=== PATIENT | female | born 1930 | race Caucasian/White ===

== ENCOUNTER 2018-11-27 14:34 | Observation (INO) | payer MEDICARE, OTHER ==
[~2018-11-27] VITALS: Ht 167.6 cm; Wt 80.3 kg
[2018-11-27] MEDS ORDERED: NITROGLYCERIN/D5W 200 MCG/ML 250 ML IV STA (14:54)
--- NOTE | 2018-11-27 15:16 | NUR ---
RADIOLOGY AT BEDSIDE FOR CXR AT THIS TIME.
[2018-11-27] MEDS ORDERED: ASPIRIN 81 MG CHEW TAB PO ONE ×2 (15:30→16:45)
--- NOTE | 2018-11-27 15:32 | Diagnostic Imaging Report ---
Examination: Single AP view of the chest. COMPARISON: None. INDICATION: Chest pain DISCUSSION: Lungs are well-inflated and without focal airspace consolidation, pleural effusion, or pneumothorax. Probable calcified granuloma peripheral right midlung. Normal heart size for technique. Coronary artery stents. Probable mitral annular calcifications. Atherosclerotic calcification of the thoracic aorta. No overt pulmonary edema. Mild prominence of the pulmonary interstitium. No acute osseous abnormality. Surgical anchors in the right humeral head. Subchondral cystic change left humeral head. IMPRESSION: No acute cardiopulmonary abnormalities. Mild interstitial prominence likely reflects age-related fibrotic change. Signed by: Dr. Bronson Ramirez M.D. on 11/27/2018 3:29 PM
[2018-11-27 16:52] LABS: BASOPHILS % 0.3 % (0.0-1.0); EOSINOPHILS # (AUTO) 0.1 (0.0-0.4); HEMATOCRIT 35.4 % (34.2-44.1); HEMOGLOBIN 12.3 g/dL (12.0-16.0); LYMPHOCYTES # (AUTO) 1.7 (1.0-3.2); LYMPHOCYTES % 22.2 % (18.0-39.1); MEAN CORPUSCULAR HEMOGLOBIN 29.9 pg (28-32); MEAN CORPUSCULAR HGB CONC 34.7 g/dL (31-35); MEAN CORPUSCULAR VOLUME 85.9 fL (81-99); MONOCYTES # (AUTO) 0.4 (0.2-0.8); MONOCYTES % 5.4 % (4.4-11.3); NEUTROPHILS # (AUTO) 5.5 (2.1-6.9); NEUTROPHILS % 70.8 % (38.7-80.0); PLATELET COUNT 238 x10e3/uL (140-360); RED BLOOD COUNT 4.12 x10e6/uL (3.6-5.1); RED CELL DISTRIBUTION WIDTH 13.5 % (11.7-14.4)
[2018-11-27 17:12] LABS: ALANINE AMINOTRANSFERASE 43 IU/L (0-55); ALBUMIN 3.5 g/dL (3.5-5.0); ALBUMIN/GLOBULIN RATIO 1.1 (0.8-2.0); ALKALINE PHOSPHATASE 121 IU/L (40-150); ANION GAP 15.9 mmol/L (8-16); BLOOD UREA NITROGEN 15 mg/dL (7-26); BUN/CREATININE RATIO 15 (6-25); CALCIUM 9.9 mg/dL (8.4-10.2); CARBON DIOXIDE 23 mmol/L (22-29); CHLORIDE 105 mmol/L (98-107); CREATINE KINASE 16 IU/L (29-168); CREATININE, SERUM 1.02 mg/dL (0.57-1.11); EST GLOMERULAR FILTRATION RATE 51 ML/MIN (60-); GLUCOSE 184 mg/dL (74-118); POTASSIUM 3.9 mmol/L (3.5-5.1); SODIUM 140 mmol/L (136-145)
--- OUTSIDE RECORDS SUMMARY | 2018-11-27 17:29 | XMS REPORT | Clinical Summary ---
Author Author NASRA [facility] [employer] [facility] [facility] Address Unknown Phone Unavailable Care Team Providers Care Red Hat Engineer Name Role Phone PCP Unavailable Allergies Not on File Medications End Date Status Medication Sig Dispensed Refills Start Date Active NIFEdipine (PROCARDIA-XL) Take 1 tablet 90 tablet 0 10/24/201 30 MG (OSM) 24 hr tablet (30 mg total) 9 by mouth daily. Active losartan (COZAAR) 50 MG Take 1 tablet 90 tablet 0 10/24/201 tablet (50 mg total) 9 by mouth daily. Active pantoprazole (PROTONIX) Take 1 tablet 90 tablet 0 201 40 MG tablet (40 mg total) 9 by mouth daily. Active oxybutynin (DITROPAN) 5 Take 5 mg by 0 MG tablet mouth 2 (two) times daily. Active furosemide (LASIX) 20 MG Take 20 mg by 0 tablet mouth daily. Active levothyroxine (SYNTHROID, Take 137 mcg 0 LEVOTHROID) 137 MCG by mouth tablet Every morning on an empty stomach. Active sotalol AF (BETAPACE AF) Take 120 mg 0 120 MG tablet by mouth 2 (two) times daily. Active apixaban (ELIQUIS) 5 mg Take 5 mg by 0 Tab tablet mouth 2 (two) times daily. 10/24/2018 Discontinued NIFEdipine (PROCARDIA-XL) Take 30 mg by 0 30 MG (OSM) 24 hr tablet mouth daily. 10/24/2018 Discontinued losartan (COZAAR) 50 MG Take 50 mg by 0 tablet mouth daily. 10/24/2018 Discontinued pantoprazole (PROTONIX) Take 40 mg by 0 40 MG tablet mouth daily. Active Problems Not on file Encounters Care Team Description Date Type Specialty Mary Jo Borges MD 10/23/2018 Refill Geriatric Medicine Bina Qureshi LPN 10/23/2018 Orders Only Geriatric Medicine after 11/26/2017 Social History Date Tobacco Use Types Packs/Day Years Used Never Assessed Sex Assigned at Date Recorded Not on file Industry Job Start Date Occupation Not on file Not on file Not on file Travel End Travel History Travel Start No recent travel history available. Last Filed Vital Signs Not on file Plan of Treatment Care Team Description Date Type Specialty Mary Jo Borges MD [facility] [place] [address] [phone] 12/16/2018 Office Visit Geriatric Medicine Results Not on fileafter 11/26/2017 Insurance Payer Benefit Subscriber ID Type Phone Address Plan / Group MEDICARE MEDICARE A xxxxxxxxxxx Medicare B MCR SUPPLEMENT/INDIVIDUAL GENERIC xxxxxxxxxx [employer] MEDICARE SUPPLEMENT
--- OUTSIDE RECORDS SUMMARY | 2018-11-27 17:29 | XMS REPORT ---
Author Author [facility] Address Unknown Phone Unavailable Care Team Providers Care Shingle Carrier Name Role Phone Lisette RODARTE Unavailable Unavailable Problems This patient has no known problems. Allergies, Adverse Reactions, Alerts This patient has no known allergies or adverse reactions. Medications This patient has no known medications. Results Test Description Test Time Test Comments Text Results Atomic Results Result Comments CHEST SINGLE (PORTABLE) 2018-11-27 15:27:00 [place] [address] Patient Name: BRISEIDA LEON MR #: [id number] : 1930 Age/Sex: 88/F Req #: [id number] Adm Physician: Ordered by: WALKER RODARTE MD Report #: [id number] Location: ER Room/Bed: Procedure: [id number] DX/CHEST SINGLE (PORTABLE) Exam Date: 11/27/18 Exam Time: 1508 REPORT STATUS: Signed Examination: Single AP view of the chest. ALEIDA RISON: None. INDICATION: Chest pain DISCUSSION: Lungs are well-inflated and without focal airspace consolidation, pleural effusion, or pneumothorax. Probable calcified granuloma peripheral right midlung. Normal heart size for technique. Coronary artery stents. Probable mitral annular calcifications. Atherosclerotic calcification of the thoracic aorta. No overt pulmonary edema. Mild prominence of the pulmonary interstitium. No acute osseous abnormality. Surgical anchors in the right humeral head. Subchondral cystic change left humeral head. IMPRESSION: No acute cardiopulmonary abnormalities. Mild interstitial prominence likely reflects age-related fibrotic change. Signed by: Dr. Karine Awad M.D. on 11/27/2018 3:29 PM Dictated By: KARINE AWAD MD 1529 Transcribed By: OSVALDO on 11/27/18 1529 COPY TO: WALKER RODARTE MD
[2018-11-27 17:56] VITALS: BP 191/80
[2018-11-27 18:09] VITALS: BP 191/88
[2018-11-27] MEDS ORDERED: OXYBUTYNIN CHLOR5 M1 PO (18:36)
[2018-11-27] MEDS ORDERED: LASIX20 MG PO (18:36)
[2018-11-27] MEDS ORDERED: NIFEDIPINE ER30 M1 PO (18:36)
[2018-11-27] MEDS ORDERED: LOSARTAN POTASS25 MG PO (18:36)
[2018-11-27] MEDS ORDERED: APIXABAN 5 MG PO (18:36)
[2018-11-27] MEDS ORDERED: ASPIRIN EC81 MG PO (18:36)
[2018-11-27] MEDS ORDERED: SOTALOL80 MG PO (18:36)
[2018-11-27] MEDS ORDERED: LEVOTHYROXINE112 MCG PO (18:36)
[2018-11-27] MEDS ORDERED: PANTOPRAZOLE SO40 MG PO (18:36)
--- NOTE | 2018-11-27 19:00 | NUR ---
received report from day nurse. patient is resting comfortably in bed. denies pain or discomfort. bed is in lowest position and call allen is within reach. will continue to monitor patient's care.
[2018-11-27 19:49] VITALS: BP 138/75
[2018-11-27 19:58] VITALS: BP 138/75
--- NOTE | 2018-11-27 21:00 | NUR ---
patient has had one episode of emesis. MD notified. Received new order for Zofran 4mg IV q 4 hours as needed for nausea and vomiting. Will continue to monitor patient.
[2018-11-27] MEDS ORDERED: ONDANSETRON HCL INJ 2MG/ML 2ML 2 MG/ML VIAL IV PRN (22:00)
[2018-11-27 23:49] VITALS: BP 156/67
[2018-11-28 04:31] VITALS: BP 189/76
[2018-11-28 04:38] LABS: CHOL/HDL RATIO 3.2 (3.0-3.6)
[2018-11-28 04:52] LABS: CREATINE KINASE MB 0.4 ng/mL (0-5.0)
--- NOTE | 2018-11-28 06:45 | NUR ---
report given to day nurse. patient is resting comfortably in bed. bed is in lowest position and call allen is within reach.
[2018-11-28 07:19] VITALS: BP 164/69
[2018-11-28 08:55] VITALS: BP 164/69
[2018-11-28] MEDS ORDERED: LOSARTAN POTASSIUM 25 MG TAB PO SCH (09:00)
[2018-11-28] MEDS ORDERED: LEVOTHYROXINE SODIUM 112 MCG TAB PO SCH (09:00)
[2018-11-28] MEDS ORDERED: NIFEDIPINE CR 30 MG TAB PO SCH (09:00)
[2018-11-28] MEDS ORDERED: SOTALOL HCL 80 MG TAB PO SCH (09:00)
[2018-11-28] MEDS ORDERED: PANTOPRAZOLE SOD 40 MG TABEC PO SCH (09:00)
[2018-11-28] MEDS ORDERED: OXYBUTYNIN CHLORIDE XL 5 MG TAB PO SCH (09:00)
[2018-11-28] MEDS ORDERED: FUROSEMIDE 20 MG TAB PO SCH (09:00)
[2018-11-28] MEDS ORDERED: APIXABAN 5 MG TABLET PO SCH (09:00)
[2018-11-28] MEDS ORDERED: ASPIRIN 81 MG ENTERIC COATED PO SCH (09:00)
[2018-11-28 11:07] VITALS: BP 137/63
[2018-11-28 12:28] LABS: CREATINE KINASE 22 IU/L (29-168)
--- NOTE | 2018-11-28 18:45 | Consultation ---
DATE OF CONSULTATION: Cardiology Consultation REASON FOR CONSULTATION: Chest pain. HISTORY OF PRESENT ILLNESS: This is an 88-year-old woman with a history of myocardial infarction, coronary artery disease status post percutaneous coronary intervention last stent being in 2014, paroxysmal atrial fibrillation, mild aortic stenosis, hypertension, hyperlipidemia, and gastroesophageal reflux disease, who presented to the emergency department with epigastric discomfort. She states that yesterday around noon, she developed upper epigastric discomfort with radiation to her chest after eating, mild intensity, pressure and burning like, no other exacerbating or relieving factors. The patient denies any shortness of breath, nausea, vomiting, or diaphoresis. She also states that this feels different than her prior chest pain, which she had when she had her previous myocardial infarction. REVIEW OF SYSTEMS: A 12-point review of system was conducted, is negative otherwise as stated above in the HPI. PAST MEDICAL HISTORY: As stated above in the HPI. PAST SURGICAL HISTORY: Percutaneous coronary intervention and lobectomy. PAST FAMILY HISTORY: No premature coronary artery disease or sudden cardiac . ALLERGIES: PENICILLIN AND SULFA. SOCIAL HISTORY: No illicit drug, alcohol, or tobacco use. MEDICATIONS: See medication reconciliation form. PHYSICAL EXAMINATION: VITAL SIGNS: Temperature is 98.7, heart rate 62, respirations are 20, blood pressure is 137/63, and oxygen saturation 95% on room air. GENERAL: Well appearing, well built, in no apparent distress. Alert and oriented x3. HEAD: Normocephalic, atraumatic. EYES: Extraocular muscles are intact. Conjunctivae clear. NECK: No JVD. No bruits. CARDIOVASCULAR: Regular rate and rhythm with episodes of irregular ectopy. LUNGS: Clear to auscultation. ABDOMEN: Soft, nontender, and nondistended. EXTREMITIES: No clubbing, cyanosis, or edema. Vascular 2+ pulses. SKIN: Warm, dry, and intact. NEUROLOGIC: No focal deficits noted. LABORATORY DATA: All laboratory data reviewed. Troponin negative x3. Normal creatinine. LDL is 100. A 12-lead electrocardiogram showed normal sinus rhythm. Chest x-ray shows no acute cardiopulmonary abnormalities. TELEMETRY: Monitoring revealed normal sinus rhythm. IMPRESSION: 1. Epigastric pain. 2. Precordial pain. 3. Coronary artery disease, status post percutaneous coronary intervention. 4. Paroxysmal atrial fibrillation. 5. Hyperlipidemia. 6. Gastroesophageal reflux disease. RECOMMENDATIONS: This patient is ruled out for acute myocardial infarction with three sets of negative cardiac enzymes and a 12-lead electrocardiogram showed no active ischemia. 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 Continue current cardiovascular medications including aspirin and Eliquis. Continue sotalol for rhythm control. Continue losartan and nifedipine for blood pressure control. Mild diuresis with Lasix. The patient maybe discharged from a cardiovascular standpoint with outpatient stress testing. DO SHAMAR Cuevas/MODL /[id number]
== END 2018-11-28 12:30 | disposition home or self-care (01) ==
LOC: ER 14:34 → ERHOLD 16:38 → IMCU 17:48
PROVIDERS: ADMIT Internal Medicine; ATTEND Internal Medicine
DX: R07.2 Precordial pain (principal); I25.10 Atherosclerotic heart disease of native coronary artery without angina pectoris; I25.2 Old myocardial infarction; E11.22 Type 2 diabetes mellitus with diabetic chronic kidney disease; I13.10 Hypertensive heart and chronic kidney disease without heart failure, with stage 1 through stage 4 chronic kidney disease, or unspecified chronic kidney disease; N18.3 Chronic kidney disease, stage 3 (moderate); K21.9 Gastro-esophageal reflux disease without esophagitis; Z98.61 Coronary angioplasty status; E03.9 Hypothyroidism, unspecified; I48.0 Paroxysmal atrial fibrillation; I35.0 Nonrheumatic aortic (valve) stenosis; R10.13 Epigastric pain; Z88.0 Allergy status to penicillin; Z88.2 Allergy status to sulfonamides; Z79.82 Long term (current) use of aspirin
CPT/HCPCS: 36415 ×2; 71045; 80053; 80061; 82550 ×2; 82553 ×2; 84484 ×2; 85025; 93005; 99284; G0378 ×2; J2405; S0164

== ENCOUNTER 2018-12-01 00:55 | Emergency (ER) | payer MEDICARE, OTHER ==
[~2018-12-01] VITALS: Ht 167.6 cm; Wt 80.3 kg
[~2018-12-01 00:55] MED LIST: APIXABAN 5 MG PO; ASPIRIN EC81 MG PO; LASIX20 MG PO; LEVOTHYROXINE112 MCG PO; LOSARTAN POTASS25 MG PO; NIFEDIPINE ER30 M1 PO; OXYBUTYNIN CHLOR5 M1 PO; PANTOPRAZOLE SO40 MG PO; SOTALOL80 MG PO
--- OUTSIDE RECORDS SUMMARY | 2018-12-01 00:57 | XMS REPORT | Clinical Summary ---
Author Author NASRA [facility] [employer] [facility] Address Unknown Phone Unavailable Care Team Providers Care Turkey Roll Maker Name Role Phone PCP Unavailable Allergies Not [...] LPN 10/23/2018 Orders Only Geriatric Medicine after 11/30/2017 Social History Date Tobacco Use Types Packs/Day [...] Date Type Specialty Mary Jo Borges MD [facility] [place] [address] [phone] 12/16/2018 Office Visit Geriatric Medicine Results Not on fileafter 11/30/2017 Insurance Payer Benefit Subscriber ID Type Phone Address Plan / Group MEDICARE MEDICARE A xxxxxxxxxxx Medicare B MCR SUPPLEMENT/INDIVIDUAL GENERIC xxxxxxxxxx [facility] MEDICARE SUPPLEMENT
[2018-12-01 02:00] LABS: BILIRUBIN,URINE NEGATIVE (NEGATIVE); CLARITY,URINE CLOUDY (CLEAR); COLOR,URINE YELLOW (YELLOW); KETONES,URINE NEGATIVE (NEGATIVE); LEUKOCYTE ESTERASE ,URINE NEGATIVE (NEGATIVE); NITRITE,URINE NEGATIVE (NEGATIVE); PROTEIN,URINE DIPSTICK NEGATIVE (NEGATIVE); URINE UROBILINOGEN 0.2 mg/dL (0.2 - 1)
[2018-12-01 02:17] LABS: BACTERIA,URINE FEW /HPF; EPITHELIAL CELLS,URINE FEW /LPF; RBC,URINE 0-5 /HPF (0-5); WBC,URINE (MAN) 0-5 /HPF (0-5)
--- NOTE | 2018-12-01 02:35 | Diagnostic Imaging Report ---
EXAMINATION: CHEST 2 VIEWS INDICATION: Fever ^FEVER ^[id number] ^0210 ^Y COMPARISON: Chest x-ray 11/27/2018 FINDINGS: PA and lateral views TUBES and LINES: None. LUNGS: Lungs are well inflated. There is a retrocardiac airspace opacity in the left lower lobe. 2 adjacent calcifications in the lateral right lung suggestive of granulomata. PLEURA: No pleural effusion or pneumothorax. HEART AND MEDIASTINUM: The heart is enlarged with calcifications of the mitral valve and coronary artery stents. BONES AND SOFT TISSUES: Anchors in the right humeral head are stable. There are mild degenerative changes of the left shoulder. The bones are diffusely demineralized. There is wedge-shaped compression deformity of the T12 vertebral body with approximately 45% height loss. No focal osseous lesions. There are surgical clips and chain sutures in the chest identified on lateral image. UPPER ABDOMEN: No free air under the diaphragm. IMPRESSION: 1. Retrocardiac airspace opacity suggestive of infiltrate or chronic atelectasis. 2. Cardiomegaly. No vascular congestion. 3. Compression deformity of T12 as described above. Signed by: Dr. Noelle Olea MD on 12/01/2018 2:32 AM
[2018-12-01] MEDS ORDERED: CEFTRIAXONE SOD 1 GM VIAL IM ONE (03:00)
[2018-12-01] MEDS ORDERED: LIDOCAINE HCL 1% LOCAL INJ 20 ML VIAL ONE (03:02)
== END 2018-12-01 03:50 | disposition home or self-care (01) ==
LOC: ER 00:55
DX: R50.9 Fever, unspecified (principal); J15.9 Unspecified bacterial pneumonia; I10 Essential (primary) hypertension; I48.91 Unspecified atrial fibrillation; J44.9 Chronic obstructive pulmonary disease, unspecified
CPT/HCPCS: 71046; 81001; 87086; 99283; J0696; J2001

== ENCOUNTER 2019-05-31 12:37 | Emergency (ER) | payer MEDICARE, OTHER ==
[~2019-05-31] VITALS: Ht 167.6 cm; Wt 80.3 kg
--- OUTSIDE RECORDS SUMMARY | 2019-05-31 12:40 | XMS REPORT ---
Author Author [facility] Address Unknown Phone Unavailable Care Team Providers Care Continuous Improvement Coordinator Name Role Phone CURLY RIVERA Unavailable Unavailable Whitney LARKIN Unavailable Unavailable Lisette RODARTE Unavailable Unavailable Problems This patient has no known problems. Allergies, Adverse Reactions, Alerts This patient has no known allergies or adverse reactions. Medications This patient has no known medications. Results Test Description Test Time Test Comments Text Results Atomic Results Result Comments HEMOGLOBIN A1C 2018-12-16 21:50:00 HEMOGLOBIN A1C (BEAKER) (test nhwb=263) 5.7 % 4.3-6.1 CBC W/PLT COUNT & AUTO [id number] 19:53:00* Test Item Value Reference Range Comments WHITE BLOOD CELL COUNT (BEAKER) (test sgdi=735) 6.0 K/ L 3.5-10.5 RED BLOOD CELL COUNT (BEAKER) (test qghn=690) 4.40 M/ L 3.93-5.22 HEMOGLOBIN (BEAKER) (test jpri=886) 12.9 GM/DL 11.2-15.7 HEMATOCRIT (BEAKER) (test csbm=470) 39.7 % 34.1-44.9 MEAN CORPUSCULAR VOLUME (BEAKER) (test vuoe=821) 90.2 fL 79.4-94.8 MEAN CORPUSCULAR HEMOGLOBIN (BEAKER) (test iyqn=904) 29.3 pg 25.6-32.2 MEAN CORPUSCULAR HEMOGLOBIN CONC (BEAKER) (test tirc=187) 32.5 GM/DL 32.2-35.5 RED CELL DISTRIBUTION WIDTH (BEAKER) (test uxyy=229) 13.4 % 11.7-14.4 PLATELET COUNT (BEAKER) (test jrsb=952) 301 K/CU MM 150-450 MEAN PLATELET VOLUME (BEAKER) (test lywp=080) 9.6 fL 9.4-12.3 NUCLEATED RED BLOOD CELLS (BEAKER) (test vwlc=230) 0 /100 WBC 0-0 NEUTROPHILS RELATIVE PERCENT (BEAKER) (test hpvj=865) 55 % LYMPHOCYTES RELATIVE PERCENT (BEAKER) (test qrhh=893) 37 % MONOCYTES RELATIVE PERCENT (BEAKER) (test vxyv=145) 6 % EOSINOPHILS RELATIVE PERCENT (BEAKER) (test mpul=343) 2 % BASOPHILS RELATIVE PERCENT (BEAKER) (test bzvc=862) 0 % NEUTROPHILS ABSOLUTE COUNT (BEAKER) (test wdtz=889) 3.29 K/ L 1.56-6.13 LYMPHOCYTES ABSOLUTE COUNT (BEAKER) (test ojpf=487) 2.20 K/ L 1.18-3.74 MONOCYTES ABSOLUTE COUNT (BEAKER) (test radh=674) 0.38 K/ L 0.24-0.36 EOSINOPHILS ABSOLUTE COUNT (BEAKER) (test dxxk=099) 0.12 K/ L 0.04-0.36 BASOPHILS ABSOLUTE COUNT (BEAKER) (test jbzd=928) 0.02 K/ L 0.01-0.08 IMMATURE GRANULOCYTES-RELATIVE PERCENT (BEAKER) (test mned=6186) 0 % 0-1 VITAMIN D, [id number] 19:40:00* Test Item Value Reference Range Comments VITAMIN D 25-OH (BEAKER) (test frqz=7527) 14.6 ng/mL 6.6-49.9 Effective 04/11/2017: Reference Range ChangeNew: 6.6-49.9 ng/mL Previous: 13.0 -47.8 ng/mLRecommended Vitamin D Target Range: 30.0-40.0 ng/mLVITAMIN B12 2018-12-16 19:38:00* Test Item Value Reference Range Comments VITAMIN B12 (BEAKER) (test njrj=680) 183 pg/mL 213-816 TSH/FREE T4 IF [id number] 19:38:00* Test Item Value Reference Range Comments THYROID STIMULATING HORMONE (BEAKER) (test tjyw=380) 1.65 uIU/mL 0.35-4.94 COMPREHENSIVE METABOLIC [id number] 19:16:00* Test Item Value Reference Range Comments TOTAL PROTEIN (BEAKER) (test ueve=680) 7.5 gm/dL 6.0-8.3 ALBUMIN (BEAKER) (test mwdo=3625) 3.9 g/dL 3.5-5.0 ALKALINE PHOSPHATASE (BEAKER) (test gavf=252) 102 U/L 40-150 BILIRUBIN TOTAL (BEAKER) (test rkgw=447) 0.5 mg/dL 0.2-1.2 SODIUM (BEAKER) (test itkn=026) 141 meq/L 136-145 POTASSIUM (BEAKER) (test vony=321) 4.3 meq/L 3.5-5.1 CHLORIDE (BEAKER) (test djlr=392) 106 meq/L 98-107 CO2 (BEAKER) (test vult=360) 24 meq/L 22-29 BLOOD UREA NITROGEN (BEAKER) (test kmwe=193) 15 mg/dL 7-21 CREATININE (BEAKER) (test glox=618) 0.81 mg/dL 0.57-1.25 GLUCOSE RANDOM (BEAKER) (test xnga=575) 130 mg/dL 70-105 CALCIUM (BEAKER) (test bglg=810) 10.1 mg/dL 8.4-10.2 AST (SGOT) (BEAKER) (test xykj=603) 19 U/L 5-34 ALT (SGPT) (BEAKER) (test jtbd=518) 38 U/L 6-55 EGFR (BEAKER) (test fvrn=6350) 67 mL/min/1.73 sq m ESTIMATED GFR IS NOT ACCURATE CREATININE CLEARANCE IN PREDICTING GLOMERULAR FILTRATION RATE. ESTIMATED GFR IS NOT APPLICABLE FOR DIALYSIS PATIENTS. CHEST 2 [id number] 02:27:00 [place] [address] Patient Name: BRISEIDA LEON MR #: [id number] : 1930 Age/Sex: 88/F Req #: [id number] Adm Physician: Ordered by: DEBBIE LARKIN MD Report #: [id number] Location: ER Room/Bed: Procedure: [id number] DX/ CHEST 2 VIEWS Exam Date: 12/01/18 Exam Time: 209 REPORT STATUS: Signed EXAMINATION: CHEST 2 VIEWS INDICATION: Fever FEVER [id number] Y COMPARISON: Chest x-ray 11/27/2018 FINDINGS: PA and lateral views TUBES and LINES: None. LUNGS: Lungs are well inflated. There is a r etrocardiac airspace opacity in the left lower lobe. 2 adjacent calcifications in the lateral right lung suggestive of granulomata. PLEURA: No pleural effusion or pneumothorax. HEART AND MEDIASTINUM: The heart is enlarged wi th calcifications of the mitral valve and coronary artery stents. BONES A ND SOFT TISSUES: Anchors in the right humeral head are stable. There are mild degenerative changes of the left shoulder. The bones are diffusely deminerali zed. There is wedge-shaped compression deformity of the T12 vertebral body wit h approximately 45% height loss. No focal osseous lesions. There are surgica l clips and chain sutures in the chest identified on lateral image. UPPER A BDOMEN: No free air under the diaphragm. IMPRESSION: 1. Retrocardiac a irspace opacity suggestive of infiltrate or chronic atelectasis. 2. Cardiom egaly. No vascular congestion. 3. Compression deformity of T12 as described ab ove. Signed by: Dr. Eyad Olea MD on 12/01/2018 2:32 AM Dic tated By: EYAD OLEA MD COPY TO: DEBBIE LARKIN MD CHEST SINGLE (PORTABLE)2018-11-27 15:27:00 [place] [address] Patient Name: BRISEIDA LEON MR #: [id number] : 1930 Age/Sex: 88/F Req #: [id number] Adm Physician: Ordered by: WALKER RODARTE MD Report #: [id number] Location: ER Room/Bed: Procedure: [id number] DX/ CHEST SINGLE (PORTABLE) Exam Date: 11/27/18 Exam Oleg e: 1508 REPORT STATUS: Signed Ex amination: Single AP view of the chest. COMPARISON: None. INDICATION: Chest pain DISCUSSION: Lungs are well-inflated and without focal airspace consolidation, pleural effusion, or pneumothorax. Probable calcified granuloma peripheral right midlung. Normal heart size for technique. Jahaira nary artery stents. Probable mitral annular calcifications. Atherosclerotic ca lcification of the thoracic aorta. No overt pulmonary edema. Mild prominence o f the pulmonary interstitium. No acute osseous abnormality. Surgical anchor s in the right humeral head. Subchondral cystic change left humeral head. IMPRESSION: No acute cardiopulmonary abnormalities. Mild interstitial promine nce likely reflects age-related fibrotic change. Signed by: Dr. Karine gonsales M.D. on 11/27/2018 3:29 PM Dictated By: KARINE AWAD MD Electronic ally Signed By: KARINE AWAD MD on 11/27/18 1529 Transcribed By: OSVALDO on 1529 COPY TO: WALKER RODARTE MD
[2019-05-31] MEDS ORDERED: HYDROCODONE/CHLORPHENIRAMINE 5 ML LIQCR PO PRN (13:15)
--- NOTE | 2019-05-31 13:57 | Diagnostic Imaging Report ---
EXAMINATION: CHEST 2 VIEWS INDICATION: Cough, shortness of breath ^cough ^[id number] ^1326 COMPARISON: Chest x-ray 12/01/2018 FINDINGS: PA and lateral views TUBES and LINES: None. LUNGS: Diffuse hyperinflation. There is no evidence of pneumonia or pulmonary edema. Stable calcified granuloma in the right upper lobe. PLEURA: No pleural effusion or pneumothorax. Stable biapical pleural-parenchymal thickening. HEART AND MEDIASTINUM: Stable calcifications of the mitral valve. Diffuse coronary artery calcifications. Stable mild cardiomegaly. Stable calcified lymph nodes. BONES AND SOFT TISSUES: Stable compression fracture of T12. No focal osseous lesions. Soft tissues are unremarkable. UPPER ABDOMEN: Unremarkable. IMPRESSION: Stable pulmonary hyperinflation and cardiomegaly. No acute cardiopulmonary process. Signed by: Dr. Noelle Olea MD on 05/31/2019 1:53 PM
== END 2019-05-31 14:56 | disposition home or self-care (01) ==
LOC: ER 12:37
DX: R05 Cough (principal); J20.9 Acute bronchitis, unspecified
CPT/HCPCS: 71046; 99283

== ENCOUNTER → 2019-06-02 | Outpatient (CLI) | payer MEDICARE, OTHER ==
--- NOTE | 2019-06-02 14:48 | Diagnostic Imaging Report ---
Soft tissue neck ultrasound Clinical indications: Mass right side of neck Comparison: None Technique/findings: Grayscale and color Doppler ultrasound of the patient's neck was performed. Images were obtained with a 12 MHz linear transducer. No soft tissue abnormalities are identified on the provided ultrasound images. A benign-appearing lymph node is identified in the right neck which contains normal fatty hilum. Impression: No soft tissue abnormality seen on the provided ultrasound images of the neck. If there is high clinical concern for a soft tissue abnormality which was not imaged on this examination recommend contrast enhanced CT of the neck. Signed by: King Ford MD on 06/02/2019 2:45 PM
== END ==
LOC: US 13:47
PROVIDERS: ATTEND Family Medicine
DX: R22.1 Localized swelling, mass and lump, neck (principal)
CPT/HCPCS: 76536

== ENCOUNTER 2019-11-04 18:08 | Inpatient (IN) | payer MEDICARE, OTHER ==
[~2019-11-04] VITALS: Ht 167.6 cm; Wt 80.3 kg
[2019-11-04] MEDS ORDERED: SODIUM CHLORIDE 0.9% 500ML 500 ML IV STA (18:43)
[2019-11-04] MEDS ORDERED: ACETAMINOPHEN 325 MG TAB PO STA (18:43)
[2019-11-04 19:14] LABS: BASOPHILS % 0.1 % (0.0-1.0); EOSINOPHILS % 0.3 % (0.0-6.0); HEMATOCRIT 37.5 % (34.2-44.1); HEMOGLOBIN 12.4 g/dL (12.0-16.0); LYMPHOCYTES # (AUTO) 0.9 (1.0-3.2); LYMPHOCYTES % 13.4 % (18.0-39.1); MEAN CORPUSCULAR HEMOGLOBIN 28.1 pg (28-32); MEAN CORPUSCULAR HGB CONC 33.1 g/dL (31-35); MEAN CORPUSCULAR VOLUME 84.8 fL (81-99); MONOCYTES # (AUTO) 0.6 (0.2-0.8); NEUTROPHILS # (AUTO) 5.2 (2.1-6.9); NEUTROPHILS % 76.9 % (38.7-80.0); PLATELET COUNT 232 x10e3/uL (140-360); RED BLOOD COUNT 4.42 x10e6/uL (3.6-5.1); RED CELL DISTRIBUTION WIDTH 13.5 % (11.7-14.4)
[2019-11-04] MEDS ORDERED: CEFEPIME 2 GM/NS 0.9% 100 ML 100 ML IV ONE (19:15)
[2019-11-04 19:25] LABS: INR 1.18; PROTHROMBIN TIME 15.8 seconds (11.9-14.5)
[2019-11-04 19:26] LABS: PARTIAL THROMBOPLASTIN TIME 33.3 seconds (23.8-35.5)
[2019-11-04 19:27] LABS: STREPTOCOCCUS GRP A ANTIGEN NEGATIVE (NEGATIVE)
[2019-11-04 19:32] LABS: ALANINE AMINOTRANSFERASE 214 IU/L (0-55); ALBUMIN 3.6 g/dL (3.5-5.0); ALKALINE PHOSPHATASE 174 IU/L (40-150); BLOOD UREA NITROGEN 13 mg/dL (7-26); BUN/CREATININE RATIO 16 (6-25); CALCIUM 9.5 mg/dL (8.4-10.2); CARBON DIOXIDE 24 mmol/L (22-29); CHLORIDE 102 mmol/L (98-107); CREATINE KINASE 73 IU/L (29-168); CREATININE, SERUM 0.83 mg/dL (0.57-1.11); EST GLOMERULAR FILTRATION RATE > 60 ML/MIN (60-); GLUCOSE 165 mg/dL (74-118); SODIUM 137 mmol/L (136-145)
--- NOTE | 2019-11-04 19:32 | NUR ---
ER MD AND PRIMARY RN NOTIFIED AND AWARE OF CRITICAL LAB VALUE; LACTIC ACID 2.7.
[2019-11-04 19:35] LABS: INFLUENZAE A&B ANTIGEN (RAPID) NEGATIVE (NEGATIVE)
[2019-11-04] MEDS ORDERED: SODIUM CHLORIDE 0.9% 1000ML 1,000 ML IV ONE ×2 (19:45→22:15)
[2019-11-04 19:59] LABS: AMYLASE 72 U/L (25-125); LIPASE 15 U/L (8-78)
[2019-11-04 20:01] LABS: CLARITY,URINE SL CLOUDY (CLEAR); COLOR,URINE YELLOW (YELLOW); LEUKOCYTE ESTERASE ,URINE NEGATIVE (NEGATIVE); NITRITE,URINE NEGATIVE (NEGATIVE)
[2019-11-04 20:02] LABS: BILIRUBIN,URINE NEGATIVE (NEGATIVE); KETONES,URINE NEGATIVE (NEGATIVE); PROTEIN,URINE DIPSTICK NEGATIVE (NEGATIVE); URINE UROBILINOGEN 0.2 mg/dL (0.2 - 1)
[2019-11-04 20:10] LABS: BACTERIA,URINE RARE /HPF; EPITHELIAL CELLS,URINE RARE /LPF; RBC,URINE 0-5 /HPF (0-5)
--- NOTE | 2019-11-04 20:41 | Diagnostic Imaging Report ---
EXAMINATION: CHEST SINGLE (PORTABLE) COMPARISON: Chest x-ray 05/31/2019 INDICATION: Fever, chills, elevated LFTs ^Y ^ERMD ORDER ^[id number] ^2000 ^Y DISCUSSION: Frontal view of the chest obtained at 2006 hours. HEART AND MEDIASTINUM: The heart is mildly enlarged and stable. There are calcifications throughout the aortic arch. Coronary artery calcifications identified on previous exam are not visualized on this image. LINES: None. LUNGS: Diffuse hyperinflation suggestive of small airways disease. No pneumonia or pulmonary edema. Calcified granulomata in the right upper lobe are stable. PLEURA: No pleural effusion or pneumothorax. BONES AND SOFT TISSUES: Surgical anchors in the right humeral head. The soft tissues are normal. IMPRESSION: 1. Stable mild cardiomegaly. No evidence of CHF or pulmonary edema. 2. Stable pulmonary hyperinflation. No acute pulmonary process. Signed by: Dr. Noelle Olea MD on 11/04/2019 8:37 PM
--- NOTE | 2019-11-04 21:06 | Diagnostic Imaging Report ---
CT Abdomen And Pelvis with Intravenous Contrast INDICATION: ^Y ^fever, elevated lft's ^Y TECHNIQUE: Thin collimation axial images obtained from the diaphragm to the level of the pubic symphysis following the uneventful administration of 100 cc of low osmolar, nonionic intravenous contrast. Dose reduction techniques used: Automated exposure control, adjustment of the mAs and/or kVp according to patient size, standardized low-dose protocol, and/or iterative reconstruction technique. RADIATION DOSE: Total DLP: 693.89 mGy*cm Estimated effective dose: (DLP x 0.015 x size factor) mSv CTDIvol has been reviewed. It is below the limits set by the Radiation Protocol Committee (RPC). COMPARISON: None. ABDOMEN FINDINGS: Lung Bases: Partially loculated left pleural effusion. Linear bands of chronic atelectasis/scarring in the left lung base. The heart is enlarged. Small hiatal hernia. Liver: Decreased attenuation suggestive of steatosis. No evidence for mass. Gallbladder: Absent. Biliary tree: Diffuse mild intrahepatic bile dilatation. The common hepatic duct measures 1.6 cm. The cystic duct is distended with fluid. The distal common bile duct measures 1.2 cm. There are no intraluminal filling defects. No evidence of pneumobilia. Pancreas: Normal attenuation without mass or ductal dilatation. Spleen: Normal in size. No evidence of mass. Adrenal Glands: No evidence for mass. Kidneys: Right: Multiple peripelvic cysts with a large peripelvic cyst measuring 3.7 cm. Normal enhancement the parenchyma. No hydronephrosis. Left: Normal enhancement. Calculus in the proximal lower pole measures 10 mm and is stable. There is a prominent renal pelvis without calyceal dilatation. No perinephric inflammation. Lymph Nodes: No enlarged abdominal or periaortic lymph nodes. Aorta: Mildly tortuous with scattered calcifications PELVIS FINDINGS: Bowel: Stomach: Normal. Small Bowel: Periampullary duodenal diverticulum measures approximate 4 cm. There are 2 subcentimeter hyperattenuating foci layering dependently in the diverticulum (sagittal image 58). The remainder of the small bowel is normal in diameter with normal wall thickness. Large Bowel: A right colon is not visualized. This may be due to right hemicolectomy and primary ileocolic anastomosis. Moderate burden of stool in the mid transverse colon extending to the descending colon. Multiple diverticula in the sigmoid colon without associated inflammation area Bladder: Very well-distended without mural thickening or perivesicular inflammation. The uterus is absent. No adnexal mass. Peritoneum/retroperitoneum: No free fluid or fluid collection. Lobulated peritoneal calcification in the left lower quadrant measures 15 mm. No free air. Bones: Diffusely demineralized. The patient is status post laminectomy at L3 and L4. No fusion hardware is present. There is a compression fracture of L1 of approximately 50%. No retropulsed bone fragments. Moderate degenerative changes of the lumbar spine from L2 to L5. There is a stimulator device anterior to the sacral right of midline. The battery pack is in the posterior right pelvis. Right hip prosthesis is intact and normal in position without associated fracture. IMPRESSION: 1. Status post cholecystectomy. Diffuse intrahepatic and hepatic bile duct dilatation. Periampullary duodenal diverticulum with 2 subcentimeter radiodensities layering posterior. These may be the result of passed gallstones. Concomitant cholangitis cannot be excluded in the appropriate clinical setting. If this persists, ERCP should be considered to exclude ampullary stricture or ampullary mass. 2. Mild steatosis. 3. Diverticulosis coli. No evidence for bowel obstruction or inflammation. Suspected postoperative changes of the large bowel. Small hiatal hernia. 4. Very well-distended bladder with resulting prominence of the left renal pelvis. Multiple peripelvic cysts in the right kidney. 5. L1 compression fracture of approximately 50%. The spinal canal is patent. Postoperative changes of the lumbar spine as described above. 6. Small, possibly loculated left pleural effusion. Signed by: Dr. Noelle Olea MD on 11/04/2019 9:03 PM
[2019-11-04] MEDS ORDERED: ELIQUIS5 MG PO (21:38)
[2019-11-04] MEDS ORDERED: PROTONIX40 MG PO (21:38)
[2019-11-04] MEDS ORDERED: VESICARE5 MG PO (21:38)
[2019-11-04] MEDS ORDERED: SOTALOL HCL 80 MG TAB PO ONE (22:00)
[2019-11-04] MEDS ORDERED: ONDANSETRON HCL INJ 2MG/ML 2ML 2 MG/ML VIAL IV PRN (22:15)
[2019-11-04] MEDS ORDERED: SODIUM CHLORIDE 0.9% 50ML 50 ML ONE (22:42)
[2019-11-04] MEDS ORDERED: IOPAMIDOL 370 MG/ML 200 ML INFUS..BTL INJ ONE (22:43)
--- NOTE | 2019-11-04 23:00 | NUR ---
PATIENT ARRIVED VIA WHEELCHAIR WITH BELONGINGS. PATIENT IN NO PAIN OR DISTRESS. CALL LIGHT WITHIN REACH. RECEIVED REPORT FROM HILTON PARR NURSE.
[2019-11-04] MEDS: METRONIDAZOLE 500MG/NS 100ML 100 ML IV SCH (23:17)
[2019-11-04 23:20] VITALS: BP 153/86
[2019-11-05] VITALS (8 sets, daily range): BP systolic 118–166; BP diastolic 62–87
[2019-11-05] MEDS: CEFEPIME 2 GM/NS 0.9% 100 ML 100 ML IV SCH ×3 (03:59→20:01)
[2019-11-05] MEDS: METRONIDAZOLE 500MG/NS 100ML 100 ML IV SCH ×3 (05:07→17:05)
[2019-11-05 06:28] LABS: BASOPHILS % 0.2 % (0.0-1.0); EOSINOPHILS % 0.7 % (0.0-6.0); HEMATOCRIT 36.6 % (34.2-44.1); HEMOGLOBIN 11.9 g/dL (12.0-16.0); LYMPHOCYTES # (AUTO) 1.8 (1.0-3.2); LYMPHOCYTES % 28.9 % (18.0-39.1); MEAN CORPUSCULAR HEMOGLOBIN 27.5 pg (28-32); MEAN CORPUSCULAR HGB CONC 32.5 g/dL (31-35); MEAN CORPUSCULAR VOLUME 84.5 fL (81-99); MONOCYTES # (AUTO) 0.7 (0.2-0.8); MONOCYTES % 11.1 % (4.4-11.3); NEUTROPHILS # (AUTO) 3.6 (2.1-6.9); NEUTROPHILS % 58.9 % (38.7-80.0); PLATELET COUNT 222 x10e3/uL (140-360); RED BLOOD COUNT 4.33 x10e6/uL (3.6-5.1); RED CELL DISTRIBUTION WIDTH 13.6 % (11.7-14.4)
[2019-11-05 06:54] LABS: ALANINE AMINOTRANSFERASE 176 IU/L (0-55); ALBUMIN 3.4 g/dL (3.5-5.0); ALKALINE PHOSPHATASE 148 IU/L (40-150); ANION GAP 14.4 mmol/L (8-16); BLOOD UREA NITROGEN 9 mg/dL (7-26); BUN/CREATININE RATIO 13 (6-25); CARBON DIOXIDE 23 mmol/L (22-29); CHLORIDE 107 mmol/L (98-107); CREATININE, SERUM 0.71 mg/dL (0.57-1.11); EST GLOMERULAR FILTRATION RATE > 60 ML/MIN (60-); GLUCOSE 88 mg/dL (74-118); POTASSIUM 3.4 mmol/L (3.5-5.1); SODIUM 141 mmol/L (136-145)
--- NOTE | 2019-11-05 07:21 | NUR ---
GAVE BEDSIDE SHIFT REPORT TO ONCOMING NURSE. PATIENT IN BED. CALL LIGHT WITHIN REACH.
--- NOTE | 2019-11-05 07:30 | NUR ---
PATIENT IS AWAKE, ALERT, AND IN STABLE CONDITION WITH NO S/S OF RESPIRATORY DISTRESS. NO PAIN VOICED BY PATIENT AT THIS TIME. TELEMETRY APPLIED. BEDSIDE COMMODE AVAILABLE FOR PATIENT NEAR BEDSIDE. BED ALARM APPLIED. CALL LIGHT IS WITHIN REACH, PATIENT INSTRUCTED TO CALL FOR ASSISTANCE NEEDED.
[2019-11-05] MEDS: SOTALOL HCL 80 MG TAB PO SCH ×2 (09:00→17:01)
--- NOTE | 2019-11-05 09:10 | NUR ---
ASSESSMENT: No concerns expressed Pt identifies as Holiness. Pt states she moved from [place] about 6 months ago to live with her daughter and son-in-law. Intervention: Provided unhurried pastoral presence and facilitated storytelling. Provided prayer and information on how to reach gear tooth lapping machine operator, if needed. Outcome: No need to follow at this time. DICK HOPE Social Media Analyst Spiritual Care Department O: [phone]
--- NOTE | 2019-11-05 09:38 | NUR ---
RECEIVED CALL FROM LAB AT 0845 REGARDING BLOOD CULTURES- BOTH SETS (ALL FOUR BOTTLES) HAVE GRAM NEGATIVE RODS. DR. COELHO NOTIFIED AT 0851- NO NEW ORDERS RECEIVED BY DR. COELHO.
--- NOTE | 2019-11-05 12:17 | NUR ---
DR. Armando COELHO ON THE UNIT- SPOKE WITH PATIENT'S DAUGHTER VIA PHONE. ROUNDED WITH DR. COELHO IN PATIENT'S ROOM. PLAN: PATIENT TO HAVE AN EGD TODAY.
--- NOTE | 2019-11-05 12:18 | NUR ---
SPOKE TO DR. Armando COELHO REGARDING PATIENT'S BP OF 164/68 AND IF OKAY TO ADMINISTER PO BP MEDICATION PRIOR TO EGD TODAY. DR. COELHO STATED TO HOLD FROM GIVING THE PO BLOOD PRESSURE MEDICATION.
[2019-11-05] MEDS ORDERED: FENTANYL CITRATE/PF 100MCG/2 ML INJ ONE (14:08)
[2019-11-05] MEDS ORDERED: MIDAZOLAM HCL 2 MG/2 ML VIAL ONE (14:08)
--- NOTE | 2019-11-05 14:35 | Consultation ---
DATE OF CONSULTATION: Cardiology Consultation HISTORY OF PRESENT ILLNESS: This is an 89-year-old woman with a history of paroxysmal atrial fibrillation, coronary artery disease status post percutaneous coronary intervention, mild aortic stenosis, hypertension, hyperlipidemia, gastroesophageal reflux disease, and possible chronic liver disease. The patient presented to the emergency department with fever, generalized malaise, cough, and shortness of breath. She has no chest pain. She does report occasional palpitations. She has remained compliant with her home cardiovascular medications. I evaluated this patient in my office and she has had a normal stress test and echocardiogram in recent past. REVIEW OF SYSTEMS: A 12-point review of systems was conducted and is negative except as stated above in the HPI. PAST MEDICAL HISTORY: As stated above in the HPI. PAST SURGICAL HISTORY: Percutaneous coronary intervention. PAST FAMILY HISTORY: Noncontributory to current illness. MEDICATIONS: See medication reconciliation form. ALLERGIES: PENICILLIN AND SULFA. SOCIAL HISTORY: No illicit drug, alcohol, or tobacco use. PHYSICAL EXAMINATION: VITAL SIGNS: Temperature is 98.2, heart rate 64, respirations are 20, blood pressure is 144/87, and oxygen saturation 100% on room air. GENERAL: She is well-appearing, elderly woman, in no apparent distress. Alert and oriented x3. HEAD: Normocephalic and atraumatic. EYES: The extraocular muscles are intact. Conjunctivae clear. NECK: No JVD. No bruits. CARDIOVASCULAR: She has regular rate and rhythm. No murmur heard at the right sternal border. LUNGS: Clear to auscultation bilaterally. No wheezing or rales. ABDOMEN: Soft, nontender, and nondistended. EXTREMITIES: No clubbing, cyanosis, or edema. VASCULAR: Diminished pulses. SKIN: Warm, dry, and intact. NEUROLOGIC: No focal deficits noted. Cranial nerves appear intact. PSYCHIATRIC: Normal mood and affect. LABORATORY DATA: Reviewed. Lactic acid was elevated at 2.7. Her creatinine was 0.7. Her AST and ALT were 179 and 176 respectively with a total bilirubin mildly elevated at 1.5. Telemetry monitoring revealed paroxysmal atrial fibrillation. IMPRESSION: 1. Fever. 2. Cough and shortness of breath. 3. Udlvq-dv-vtbuqzp liver disease. 4. Hypertension. 5. Hyperlipidemia. 6. Paroxysmal atrial fibrillation. RECOMMENDATIONS: This patient is stable from a cardiovascular standpoint. Her home cardiovascular medications have been resumed. If no surgeries are planned, resume Eliquis for stroke risk reduction for her paroxysmal atrial fibrillation. Zsija-dg-tcuyfww liver injury per primary and Gastroenterology teams. Antibiotics are being given for possible pneumonia. We will continue to follow along with you. DO SHAMAR Cuevas/JAMAL /[id number]
--- NOTE | 2019-11-05 14:38 | NUR ---
RECEIVED A CALL FROM DR. COELHO REGARDING THE PATIENT'S EGD RESULTS AND PLAN. DR. COELHO STATED HE SPOKE WITH THE PATIENT'S DAUGHTER/POA ABOUT THE EGD RESULTS, PLAN FOR ERCP, AND THE FACT THAT THE PATIENT IS HAVING RECURRENT CHOLANGITIS. THE PATIENT'S DAUGHTER/POA WAS ALSO INFORMED BY DR. COELHO OF THE RISKS OF THE PATIENT DEVELOPING SEPSIS. THE PATIENT'S DAUGHTER/POA, SAMANTHA OVIEDO, PLANS TO THINK OVER ALL THE INFORMATION THAT WAS PROVIDED TO HER BY DR. COELHO.
[2019-11-05] MEDS: NIFEDIPINE CR 30 MG TAB PO SCH (17:00)
[2019-11-05] MEDS: FUROSEMIDE 20 MG TAB PO SCH (17:00)
[2019-11-05] MEDS: LOSARTAN POTASSIUM 25 MG TAB PO SCH (17:00)
--- NOTE | 2019-11-05 18:12 | NUR ---
THE PATIENT AND HER DAUGHTER/POA HAVE STATED THEY WANT TO GO FORTH WITH THE ERCP PROCEDURE. PLACED CALL OUT TO DR. Armando COELHO TO INFORM HIM ON THE UPDATE- AWAITING CALLBACK.
--- NOTE | 2019-11-05 18:49 | NUR ---
PATIENT IS IN STABLE CONDITION WITH NO S/S OF RESPIRATORY DISTRESS. NO PAIN VOICED. IV FLUIDS INFUSING. TELEMETRY APPLIED. PATIENT AWARE SHE WILL BE NPO AFTER MIDNIGHT FOR POSSIBLE PROCEDURE TOMORROW. CALL PLACED OUT TO DR. Armando COELHO- NIGHT NURSE INFORMED ON POSSIBLE PROCEDURE, ERCP, FOR TOMORROW. CALL LIGHT IS WITHIN REACH, PATIENT INSTRUCTED TO CALL FOR ASSISTANCE NEEDED. BEDSIDE SHIFT REPORT GIVEN TO ONCOMING NURSE.
--- NOTE | 2019-11-05 19:01 | Operative Report ---
DATE OF PROCEDURE: 11/05/2019 SURGEON: Antonio Barry MD PROCEDURES: EGD with biopsies. INDICATIONS FOR PROCEDURE: Upper abdominal pain, nausea, vomiting, and history of dark stools. MEDICATIONS: The patient was done under MAC, please see anesthesiologist's note. PROCEDURE IN DETAIL: With the patient in the left lateral decubitus position, the flexible fiberoptic Olympus gastroscope was introduced into the esophagus under direct visualization without any difficulty. There was some patchy erythema noted in distal esophagus. A Schatzki ring was noted at the GE junction that was traversed with ease and the scope was advanced into the stomach also traversing a small hiatal hernia. Mucosa overlying the antrum and the body revealed some diffuse erythema and ekhf-km-dzcvipib edema, and biopsies were obtained and sent to stain for H. pylori. Pylorus was of normal contour and shape, was intubated with ease and the scope was advanced all the way to the second portion of the duodenum. The scope was then withdrawn slowly and the ampulla could not be well visualized with this forward viewing scope. The described diverticulum on CT scan was noted, but it could not be entered or evaluated optimally. The scope was then withdrawn back into the stomach and retroflexed, and previously described hiatal hernia was also noted in the retroflexed position. The scope was then straightened out, it was subsequently withdrawn, and the patient tolerated the procedure well. IMPRESSION: 1. Distal esophagitis, mild. 2. Schatzki's ring. 3. Small hiatal hernia. 4. Gastritis, biopsied, biopsies sent to stain for Helicobacter pylori. 5. The ampulla could not be visualized with the forward viewing scope. The patient will probably need an ERCP, as she might be having recurrent bouts of cholangitis. An MRCP could not be done, as the patient does have metal hardware in her body. PLAN: Follow up histology. Initiate Protonix 40 mg one p.o. q.a.m. before meals. Antonio Barry MD [facility] [place] /[id number] cc: DO Jamaal Landaverde MD
[2019-11-05] MEDS ORDERED: PROPOFOL IV EMULSION 10 MG/ML 20 ML VIAL ONE (19:51)
[2019-11-05] MEDS: POTASSIUM CHLORIDE 20 MEQ TAB CR PO ONE ×2 (20:01→20:03)
--- NOTE | 2019-11-05 23:30 | NUR ---
RECEIVED REPORT FROM NURSE, PATIENT RESTING, NO DISTRESS NOTED. CALL LIGHT IN REACH. WILL CONTINUE TO MONITOR.
[2019-11-06] VITALS (7 sets, daily range): BP systolic 105–135; BP diastolic 49–96
[2019-11-06] MEDS: METRONIDAZOLE 500MG/NS 100ML 100 ML IV SCH ×5 (01:11→23:23)
--- NOTE | 2019-11-06 04:00 | NUR ---
PATIENT CONTINUE RESTING, RECEIVING ANTIBIOTICS, REMAIN NPO FOR PROCEDURE. CALL LIGHT REMAIN IN REACH. WILL CONTINUE TO MONITOR.
[2019-11-06] MEDS: CEFEPIME 2 GM/NS 0.9% 100 ML 100 ML IV SCH ×3 (04:04→21:00)
[2019-11-06] MEDS ORDERED: SODIUM CHLORIDE 0.9% 50ML 0 ML ONE (05:58)
[2019-11-06] MEDS ORDERED: SODIUM CHLORIDE 0.9% 250ML 250 ML ONE (05:58)
--- NOTE | 2019-11-06 07:20 | NUR ---
PATIENT IS IN STABLE CONDITION WITH NO S/S OF RESPIRATORY DISTRESS. NO PAIN VOICED. TELEMETRY APPLIED. DIAPER APPLIED. BED ALARM APPLIED. WALKER AVAILABLE FOR PATIENT IN ROOM. PATIENT IS NPO FOR PROCEDURE TODAY. CALL LIGHT IS WITHIN REACH, PATIENT INSTRUCTED TO CALL FOR ASSISTANCE NEEDED.
[2019-11-06] MEDS: FUROSEMIDE 20 MG TAB PO SCH (09:00)
--- NOTE | 2019-11-06 09:05 | NUR ---
RECEIVED CALL FROM DR. Armando COELHO- PROCEDURE WILL BE RESCHEDULE FOR TOMORROW. ORDER TO CHANGE DIET TO CARDIAC AND NPO AFTER MIDNIGHT ORDER.
[2019-11-06] MEDS: SOTALOL HCL 80 MG TAB PO SCH ×2 (09:21→16:00)
[2019-11-06] MEDS: NIFEDIPINE CR 30 MG TAB PO SCH (09:21)
[2019-11-06] MEDS: LOSARTAN POTASSIUM 25 MG TAB PO SCH (09:21)
--- NOTE | 2019-11-06 19:22 | NUR ---
PATIENT IS SITTING UP IN THE RECLINER- IN STABLE CONDITION WITH NO S/S OF RESPIRATORY DISTRESS. NO PAIN VOICED. PATIENT IS AWARE SHE WILL BE NPO AFTER MIDNIGHT FOR PROCEDURE TOMORROW. CALL LIGHT IS WITHIN REACH, PATIENT INSTRUCTED TO CALL FOR ASSISTANCE NEEDED. BEDSIDE REPORT GIVEN TO ONCOMING NURSE.
--- NOTE | 2019-11-06 20:00 | NUR ---
RECEIVED REPORT FROM 7AM NURSE, PATIENT RESTING IN BED, NO DISTRESS NOTED. CALL LIGHT IN REACH. WILL CONTINUE TO MONITOR.
[2019-11-07] VITALS (8 sets, daily range): BP systolic 153–185; BP diastolic 58–74
[2019-11-07] MEDS: CEFEPIME 2 GM/NS 0.9% 100 ML 100 ML IV SCH ×3 (04:20→21:57)
[2019-11-07] MEDS: METRONIDAZOLE 500MG/NS 100ML 100 ML IV SCH ×3 (06:20→18:05)
--- NOTE | 2019-11-07 07:32 | NUR ---
REPORT GIVEN TO AM NURSE.
[2019-11-07] MEDS: NIFEDIPINE CR 30 MG TAB PO SCH (09:17)
[2019-11-07] MEDS: FUROSEMIDE 20 MG TAB PO SCH ×2 (09:17→09:55)
[2019-11-07] MEDS: SOTALOL HCL 80 MG TAB PO SCH ×2 (09:17→18:05)
[2019-11-07] MEDS: LOSARTAN POTASSIUM 25 MG TAB PO SCH (09:17)
--- NOTE | 2019-11-07 10:48 | NUR ---
ASSESSMENT: Spiritual concern Pt anxious concerning procedure. Pt states, "I wish we could get this over with." Pt states she isn't worried about the outcome and that "I'm fortunate enough to have lived a long life" and "either way I'll be fine." Pt thankful and proud of children, grandchildren and great grandchildren. Intervention: Provided unhurried pastoral presence and empathic listening. Facilitated storytelling. Provided prayer and information on telegraph equipment maintainer's availability. Outcome: Pt expressed appreciation for visit and support. Will continue to follow as able. DICK HOPE Title Insurance Sales Representative Spiritual Care Department O: [phone]
[2019-11-07] MEDS ORDERED: IOPAMIDOL 300MG/ML 50ML INFUS..BTL IV ONE (14:38)
[2019-11-07] MEDS ORDERED: INDOMETHACIN 50 MG SUPP.RECT RC ONE (14:38)
--- NOTE | 2019-11-07 16:08 | Diagnostic Imaging Report ---
OR Fluoroscopy: IMPRESSION: Fluoroscopy service provided in the OR. Interpretation not requested. Signed by: Nain Mcclendon MD on 11/07/2019 4:04 PM
[2019-11-07 18:00] LABS: ALANINE AMINOTRANSFERASE 66 IU/L (0-55); ALBUMIN 3.5 g/dL (3.5-5.0); ALKALINE PHOSPHATASE 112 IU/L (40-150); ANION GAP 13.7 mmol/L (8-16); BLOOD UREA NITROGEN 19 mg/dL (7-26); BUN/CREATININE RATIO 24 (6-25); CALCIUM 9.3 mg/dL (8.4-10.2); CARBON DIOXIDE 24 mmol/L (22-29); CHLORIDE 108 mmol/L (98-107); CREATININE, SERUM 0.78 mg/dL (0.57-1.11); EST GLOMERULAR FILTRATION RATE > 60 ML/MIN (60-); GLUCOSE 141 mg/dL (74-118); POTASSIUM 3.7 mmol/L (3.5-5.1); SODIUM 142 mmol/L (136-145)
--- NOTE | 2019-11-07 18:27 | NUR ---
Patient went to ERCP procedure and it was stopped due to diverticulum in the way. Patient was ordered to resume pre-op diet (cardiac), a hep panel was ordered, CMP was ordered, and what little bit of ERCP was done will be read. Patient's daughter was informed. Dr. Barry stated he would be following patient for her liver enzymes and her diet and would be referring her to [facility] [place]. Patient is aware and has no issues at this time.
--- NOTE | 2019-11-07 19:10 | NUR ---
Received patient from day nurse, patient is alert and oriented x 3. patient is on room air. safety and fall precautions maintained as per hospital protocol: bed in lowest position and locked, needed items beside bed, and call allen placed close to patient, patient is currently stable, will continue to monitor.
[2019-11-07] MEDS ORDERED: PROPOFOL IV EMULSION 10 MG/ML 20 ML VIAL ONE (19:15)
[2019-11-07] MEDS ORDERED: LIDOCAINE HCL 2% LOCAL INJ 5 ML SDV VIAL INJ ONE (19:15)
--- NOTE | 2019-11-07 19:19 | Operative Report ---
DATE OF PROCEDURE: 11/07/2019 SURGEON: Antonio Barry MD PROCEDURE: ERCP. INDICATIONS FOR PROCEDURE: Dilated bile duct, elevated liver enzymes. ? recurrent cholangitis. MRCP could not be done due to the patient having metal hardware. MEDICATIONS: The patient was done under general endotracheal anesthesia, please see anesthesiologist's note. PROCEDURE IN DETAIL: With the patient in the prone position, the flexible fiberoptic Olympus side-viewing scope was inserted into the esophagus with ease and advanced all the way to the second portion of the duodenum. A moderate-size periampullary diverticulum was noted in the proximal second portion with some solid debris retained in the diverticulum. Despite washing out of the diverticulum, the ampullary orifice could not be delineated despite multiple attempts. The scope was subsequently withdrawn. The patient tolerated the procedure well. IMPRESSION: Periampullary diverticulum with retained solid debris. Ampullary orifice could not be delineated even after flushing out the diverticulum. The scope was subsequently withdrawn. The patient tolerated the procedure well. PLAN: We will refer the patient to the [facility]. Antonio Barry MD [facility] [place] [place] /[id number] cc: Jamaal Barry MD
[2019-11-08] VITALS (7 sets, daily range): BP systolic 132–161; BP diastolic 59–80
[2019-11-08] MEDS ORDERED: ONDANSETRON HCL INJ 2MG/ML 2ML 2 MG/ML VIAL IV STA (01:49)
[2019-11-08] MEDS: METRONIDAZOLE 500MG/NS 100ML 100 ML IV SCH ×5 (01:53→23:23)
[2019-11-08] MEDS ORDERED: ACETAMINOPHEN 325 MG TAB PO ONE (02:00)
[2019-11-08] MEDS: CEFEPIME 2 GM/NS 0.9% 100 ML 100 ML IV SCH (05:00)
[2019-11-08] MEDS: NIFEDIPINE CR 30 MG TAB PO SCH (09:24)
[2019-11-08] MEDS: SOTALOL HCL 80 MG TAB PO SCH ×2 (09:24→16:55)
[2019-11-08] MEDS: LOSARTAN POTASSIUM 25 MG TAB PO SCH (09:24)
--- NOTE | 2019-11-08 11:01 | Progress Note ---
DATE: 11/08/2019 CHIEF COMPLAINT/HISTORY OF PRESENT ILLNESS: This is an 89-year-old white woman, whose primary treating diagnosis is possible ascending cholangitis, E. coli bacteremia and paroxysmal atrial fibrillation. The patient also has hypertensive heart disease. The patient voiced no complaints at this time. The patient, apparently, MRCP could not be performed because the patient has metal hardware. Thus, ERCP was attempted yesterday, but was unsuccessful because the ampullary orifice could not be delineated. The mid level practitioner, Dr. Antonio Barry, recommends the patient be transferred to [facility] for further evaluation and treatment. However, blood cultures revealed the presence of E. coli bacterial species. This strain of E. coli seems to be most sensitive to ceftriaxone. She is currently on metronidazole and cefepime. The patient voiced no complaints. REVIEW OF SYSTEMS: As per HPI. PHYSICAL EXAMINATION: GENERAL: She is awake, alert, and fully oriented. In no distress. Very pleasant. VITAL SIGNS: Blood pressure is 132/60, pulse 52, respiratory rate 18, temperature 98.0, and oxygen saturation is 100% on room air. BMI is 28. INTEGUMENT: Skin is warm and dry. Slight pallor. No jaundice or diaphoresis. HEENT: Anicteric sclerae with moist mucous membranes. NECK: Supple. CARDIOVASCULAR: Distant heart sounds. Bradycardic rate, regular rhythm. LUNGS: No rales. No rhonchi. No wheezes. ABDOMEN: Soft. Normal bowel sounds. Nontender. EXTREMITIES: No edema or deformity. NEUROLOGIC: Intact. DIAGNOSES: 1. Escherichia coli bacteremia. 2. Hepatic steatosis. 3. Paroxysmal atrial fibrillation. 4. Hypertensive heart disease. PLAN: 1. May discharge the patient home either today or tomorrow followup with mid level practitioner in [facility]. 2. We will discontinue cefepime. 3. We will start ceftriaxone 1 g intravenous twice a day. 4. Continue metronidazole. 5. We will check complete blood count, comprehensive metabolic profile. I spent 30 minutes in the care of this patient. MD ALICE Martin/JAMAL /[id number] [facility] CENTERKaty
[2019-11-08 11:54] LABS: BASOPHILS % 0.3 % (0.0-1.0); EOSINOPHILS # (AUTO) 0.1 (0.0-0.4); EOSINOPHILS % 1.8 % (0.0-6.0); HEMATOCRIT 35.4 % (34.2-44.1); HEMOGLOBIN 11.4 g/dL (12.0-16.0); LYMPHOCYTES # (AUTO) 1.9 (1.0-3.2); LYMPHOCYTES % 23.5 % (18.0-39.1); MEAN CORPUSCULAR HEMOGLOBIN 27.9 pg (28-32); MEAN CORPUSCULAR HGB CONC 32.2 g/dL (31-35); MEAN CORPUSCULAR VOLUME 86.6 fL (81-99); MONOCYTES # (AUTO) 0.7 (0.2-0.8); NEUTROPHILS # (AUTO) 5.1 (2.1-6.9); NEUTROPHILS % 65.1 % (38.7-80.0); PLATELET COUNT 216 x10e3/uL (140-360); RED BLOOD COUNT 4.09 x10e6/uL (3.6-5.1); RED CELL DISTRIBUTION WIDTH 13.6 % (11.7-14.4)
[2019-11-08 12:10] LABS: ALANINE AMINOTRANSFERASE 48 IU/L (0-55); ALBUMIN 3.1 g/dL (3.5-5.0); ALKALINE PHOSPHATASE 92 IU/L (40-150); ANION GAP 11.3 mmol/L (8-16); BLOOD UREA NITROGEN 18 mg/dL (7-26); BUN/CREATININE RATIO 22 (6-25); CALCIUM 9.2 mg/dL (8.4-10.2); CARBON DIOXIDE 25 mmol/L (22-29); CHLORIDE 107 mmol/L (98-107); CREATININE, SERUM 0.82 mg/dL (0.57-1.11); EST GLOMERULAR FILTRATION RATE > 60 ML/MIN (60-); GLUCOSE 106 mg/dL (74-118); POTASSIUM 3.3 mmol/L (3.5-5.1); SODIUM 140 mmol/L (136-145)
--- NOTE | 2019-11-08 12:25 | NUR ---
Patient's IV in left forearm started leaking. Patient had already had a IV in right AC. Left forearm IV was removed and covered with clean dry dressing.
[2019-11-08 12:34] LABS: BILIRUBIN,DIRECT 0.3 mg/dL (0.0-0.5)
[2019-11-08] MEDS ORDERED: POTASSIUM CHLORIDE 20 MEQ TAB CR PO ONE ×2 (14:00→16:00)
[2019-11-08] MEDS: ACETAMINOPHEN 325 MG TAB PO PRN ×2 (16:45→23:15)
[2019-11-08] MEDS: CEFTRIAXONE SOD 1 GM/NS 50 ML 50 ML IV SCH (16:55)
--- NOTE | 2019-11-08 19:00 | NUR ---
RECEIVED PATIENT IN BEDSIDE SHIFT REPORT. PATIENT RESTING IN BED AT THIS TIME. NO S&S OF DISTRESS NOTED. NO NEEDS EXPRESSED AT THIS TIME. R FA 22G IV ASYMPTOMATIC, INTACT, AND PATENT. BED LOCKED IN LOWEST POSITION, SIDE RAILS UPX2, CALL LIGHT IN REACH.
[2019-11-09] VITALS: BP 126/59
[2019-11-09 04:00] VITALS: BP 144/65
[2019-11-09] MEDS: CEFTRIAXONE SOD 1 GM/NS 50 ML 50 ML IV SCH (05:19)
[2019-11-09] MEDS: METRONIDAZOLE 500MG/NS 100ML 100 ML IV SCH (05:59)
[2019-11-09] MEDS: ACETAMINOPHEN 325 MG TAB PO PRN (05:59)
[2019-11-09 06:37] LABS: BASOPHILS % 0.3 % (0.0-1.0); EOSINOPHILS # (AUTO) 0.2 (0.0-0.4); EOSINOPHILS % 1.7 % (0.0-6.0); HEMOGLOBIN 11.8 g/dL (12.0-16.0); LYMPHOCYTES # (AUTO) 2.4 (1.0-3.2); LYMPHOCYTES % 23.2 % (18.0-39.1); MEAN CORPUSCULAR HEMOGLOBIN 27.5 pg (28-32); MEAN CORPUSCULAR HGB CONC 31.9 g/dL (31-35); MEAN CORPUSCULAR VOLUME 86.2 fL (81-99); MONOCYTES # (AUTO) 0.9 (0.2-0.8); MONOCYTES % 8.9 % (4.4-11.3); NEUTROPHILS # (AUTO) 6.8 (2.1-6.9); NEUTROPHILS % 65.5 % (38.7-80.0); PLATELET COUNT 218 x10e3/uL (140-360); RED BLOOD COUNT 4.29 x10e6/uL (3.6-5.1)
[2019-11-09 06:58] LABS: ALANINE AMINOTRANSFERASE 41 IU/L (0-55); ALBUMIN 3.3 g/dL (3.5-5.0); ALKALINE PHOSPHATASE 93 IU/L (40-150); ANION GAP 14.5 mmol/L (8-16); BLOOD UREA NITROGEN 14 mg/dL (7-26); BUN/CREATININE RATIO 21 (6-25); CALCIUM 9.4 mg/dL (8.4-10.2); CARBON DIOXIDE 22 mmol/L (22-29); CHLORIDE 109 mmol/L (98-107); CREATININE, SERUM 0.68 mg/dL (0.57-1.11); EST GLOMERULAR FILTRATION RATE > 60 ML/MIN (60-); GLUCOSE 95 mg/dL (74-118); POTASSIUM 4.5 mmol/L (3.5-5.1); SODIUM 141 mmol/L (136-145)
[2019-11-09 08:00] VITALS: BP 140/90
[2019-11-09] MEDS: FUROSEMIDE 20 MG TAB PO SCH (08:56)
[2019-11-09 08:57] VITALS: BP 140/90
[2019-11-09] MEDS: SOTALOL HCL 80 MG TAB PO SCH (09:57)
[2019-11-09] MEDS: LOSARTAN POTASSIUM 25 MG TAB PO SCH (09:57)
[2019-11-09] MEDS: NIFEDIPINE CR 30 MG TAB PO SCH (09:58)
--- NOTE | 2019-11-09 10:37 | NUR ---
Patient received a discharge order from Dr. Christiansen. Patient was given all notes from doctors and surgery summaries from Dr. Christiansen. This screen writer called Jennifer, the patient's daughter who is also her POA, and put it on speaker phone in room with patient. All discharge orders (Eliquis dose change, Aspirin discontinued, and new oral antibiotic order) were discussed, given the prescriptions, and they had no further questions. This screen writer had previously discussed with Jennifer, the POA about Dr. Christiansen and Dr. Armando Barry referring patient to Dr. Moshe Zambrano for further ERCP testing. This screen writer will continue to follow through until patient is discharged. IV was removed at 1030 and covered with a dry, clean dressing. Addendum: 11/09/19 at 1130 by Yanet Pickett RN Patient wheeled to daughter's car at 1125. Patient had no other issues at this time. No questions from daughter, either.
--- NOTE | 2019-11-09 10:55 | Discharge Summary ---
ADMIT DIAGNOSES: 1. Acute cholangitis, likely. 2. Sepsis. 3. Chronic atrial fibrillation. 4. Elevated hepatic transaminases, likely secondary to cholangitis/obstructive biliary process. DISCHARGE DIAGNOSES: 1. Sepsis, secondary Escherichia coli bacteremia, resolved. 2. Escherichia coli bacteremia, resolving. 3. Paroxysmal atrial fibrillation. 4. Hepatic steatosis. 5. Ascending cholangitis, resolving. 6. Endoscopically proven periampullary duodenal diverticulum. 7. Elevated hepatic transaminases, secondary to obstructive biliary process, resolved. 8. 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 HOSPITAL COURSE: This is an 89-year-old white woman, who was initially admitted to [facility] with diagnosis of ascending cholangitis and sepsis. On admission, the patient's AST and ALT were 415 and 214 respectively. AST and ALT did normalize during hospitalization. On admission, the patient's total bilirubin was 1.3, but this also normalized prior to discharge. The patient's alkaline phosphatase was elevated at 174 on admission and that also normalized prior to discharge. During hospitalization, the patient was found to have E. coli bacteremia. The patient improved clinically with supportive care and intravenous antibiotics, namely metronidazole and ceftriaxone which she tolerated quite well. The patient was seen by Gastroenterology, namely Dr. Antonio Barry because of her elevated hepatic transaminases and possible ascending cholangitis. The patient initially underwent any EGD, which revealed Schatzki ring, small hiatal hernia, and gastritis. The ampulla of Vater could not be visualized with the forward viewing scope according to the assistant professor of mathematics. The patient could not undergo an MRCP because she has metal hardware in her body. Thus ERCP was attempted by Dr. Antonio Barry. Unfortunately, the ERCP was unsuccessful. According to the assistant professor of mathematics, there was a periampullary diverticulum with retained solid debris. Gastrologist stated the ampullary orifice could not be delineated even after flushing out the diverticulum. On discharge,the patient's hepatic transaminases as well as her total bilirubin and alkaline phosphatase levels were normal. The patient was also afebrile for 48 hours prior to discharge. CONDITION ON DISCHARGE: Stable. DIET: She was tolerating a regular diet. DISCHARGE MEDICATIONS: 1. Cefuroxime 250 mg twice a day 14 days. 2. Apixaban 2.5 mg twice a day. 3. Furosemide 20 mg daily. 4. Levothyroxine 137 mcg daily. 5. Losartan 25 mg daily. 6. Nifedipine 60 mg daily. 7. Sotalol 120 mg b.i.d. 8. VESIcare 5 mg at bedtime. The following medications were stopped: 1. Aspirin. 2. Eliquis was decreased from 5 mg twice a day to 2.5 mg twice a day. FOLLOWUP: The patient was instructed to follow up with a assistant professor of mathematics in [facility] namely Dr. Asif Zambrano within a week. The patient and the adult daughter were informed that she will likely need to undergo repeat ERCP since the one during this hospitalization was unsuccessful, and she may have ampullary stricture or mass. MD ALICE Martin/JAMAL /[id number] cc: DO Antonio Glaser MD MTDD
== END 2019-11-09 11:25 | disposition home or self-care (01) | DRG 871 ==
LOC: ER 18:08 → ERHOLD 22:02 → MED/SURG3 23:10
PROC: 0DB78ZX Excision of Stomach, Pylorus, Via Natural or Artificial Opening Endoscopic, Diagnostic (ICD-10-PCS; principal; 2019-11-05 13:46)
PROC: 0F7C8ZZ Dilation of Ampulla of Vater, Via Natural or Artificial Opening Endoscopic (ICD-10-PCS; 2019-11-07)
DX: A41.51 Sepsis due to Escherichia coli [E. coli] (principal); K83.1 Obstruction of bile duct; K83.09 Other cholangitis; I48.0 Paroxysmal atrial fibrillation; Z79.01 Long term (current) use of anticoagulants; I25.10 Atherosclerotic heart disease of native coronary artery without angina pectoris; Z95.5 Presence of coronary angioplasty implant and graft; E78.5 Hyperlipidemia, unspecified; K21.9 Gastro-esophageal reflux disease without esophagitis; K76.9 Liver disease, unspecified; K76.0 Fatty (change of) liver, not elsewhere classified; K57.10 Diverticulosis of small intestine without perforation or abscess without bleeding; I11.9 Hypertensive heart disease without heart failure; K83.8 Other specified diseases of biliary tract; J44.9 Chronic obstructive pulmonary disease, unspecified; K22.2 Esophageal obstruction; K44.9 Diaphragmatic hernia without obstruction or gangrene
CPT/HCPCS: 36415; 43235; 43239; 71045; 74177; 74328; 80053; 80076; 81001; 82150; 82550; 82553; 83518; 83605; 83690; 84484; 85025; 85610; 85730; 87040; 87070; 87071; 87086; 87186; 87205; 87400; 87635; 88305; 88312; 93005; 99284; J0696; J2001; J2250; J2405; J3010; J7030; J7040; J7050; Q9967

== ENCOUNTER 2020-06-03 17:46 | Emergency (ER) | payer MEDICARE, OTHER ==
[~2020-06-03] VITALS: Ht 167.6 cm; Wt 80.3 kg
[~2020-06-03 17:46] MED LIST changes: +ELIQUIS5 MG PO; +PROTONIX40 MG PO; +VESICARE5 MG PO
--- OUTSIDE RECORDS SUMMARY | 2020-06-03 18:02 | XMS REPORT | Clinical Summary ---
Author Author [facility] Address Unknown Phone Unavailable Care Team Providers Care Surgical Pathologist Name Role Phone Roshan Dickinson MD PCP Allergies Comments Active Allergy Reactions Severity Noted Date Penicillins Rash Low 04/14/2019 Sulfa (Sulfonamide Rash Low 04/14/2019 Antibiotics) Medications End Date Status Medication Sig Dispensed Refills Start Date Active NIFEdipine CC (ADALAT CC) Take 30 mg by 6 30 MG 24 hr tablet mouth daily. 9 Active solifenacin (VESICARE) 5 Take 5 mg by 3 03/27 MG tablet mouth daily. 9 Active tiZANidine (ZANAFLEX) 2 TK 1 T PO TID 0 MG tablet FOR 15 DAYS 9 PRN Active pantoprazole (PROTONIX) Take 40 mg by 5 40 MG EC tablet mouth daily. 9 Active sotalol (BETAPACE) 120 MG Take 120 mg 6 04/01 tablet by mouth. 9 Active losartan (COZAAR) 50 MG Take 50 mg by 1 tablet mouth daily. 9 Active cholecalciferol, vitamin Take 1,000 0 D3, (VITAMIN D3) 1,000 Units by unit capsule mouth daily. Active cyanocobalamin (VITAMIN Take 1,000 0 B-12) 1000 MCG tablet mcg by mouth daily. Active apixaban (ELIQUIS) 5 mg Take by mouth 0 tablet 2 (two) times a day. Active levothyroxine (SYNTHROID) TK 1 T PO 1 02/01 137 mcg tablet ONCE A DAY 9 OES Active furosemide (LASIX) 20 mg Take 20 mg by 0 tablet mouth 2 (two) times a day. Active aspirin (ECOTRIN) 81 MG Take 81 mg by 0 enteric coated tablet mouth daily. 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 LOBECTOMY, LUNG STENT x 4 THYROIDECTOMY Medical History Medical History Date Comments A-fib (HCC) Glaucoma Hypertension Arthritis Neuropathy Muscular degeneration Heart attack (HCC) GERD (gastroesophageal reflux disease) Irregular heart beat Disease of thyroid gland Family History Medical History Relation Name Comments Diabetes Brother Diabetes Mother Relation Name Status Comments Brother Mother Social History Date Tobacco Use Types Packs/Day Years Used Never Smoker Smokeless Tobacco: Never Used Drinks/Week oz/Week Comments Alcohol Use Never Alcohol Habits Answer Date Recorded How often do you have a drink containing alcohol? Never 04/14/2019 How many drinks containing alcohol do you have on No t asked a typical day when you are drinking? How often do you have six or more drinks on one Not asked occasion? Sex Assigned at Date Recorded Not on file Last Filed Vital Signs Not on file Plan of Treatment Health Maintenance Due Date Last Done Comments SHINGLES VACCINES (#1) 1980 65+ PNEUMOCOCCAL VACCINE 09/28/1995 (1 of 1 - PPSV23) INFLUENZA VACCINE 01/31/2020 Results Not on fileafter 06/03/2019 Insurance Type Payer Benefit Subscriber ID Effective Phone Address Plan / Dates Group Medicare MEDICARE MEDICARE [id number] 1995-P [place], PART A AND resent [place] B Commercial COMMERCIAL [facility] [id number] 2017- COMMERCIAL Present Guarantor Name Account Relation to Date of Phone Jazmine g Address Type Patient Carla Nichole Personal/F Self 1930 [phone] [id number] ([place]) [place] [address] Advance Directives For more information, please contact: [phone] 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
--- OUTSIDE RECORDS SUMMARY | 2020-06-03 18:02 | XMS REPORT | Clinical Summary ---
Author Author [employer] [facility] [employer] [facility] Address Unknown Phone Unavailable Care Team Providers Care Coupon Collection Clerk Name Role Phone Roshan Dickinson DO PCP Allergies Comments Active Allergy Reactions Severity Noted Date Adhesive 06/02/2020 Amiodarone Analogues 04/14/2013 Codeine 04/14/2013 Meperidine 04/14/2013 Penicillins Hives Medium 12/16/2018 Sulfa (Sulfonamide Hives Medium 12/16/2018 Antibiotics) Medications End Date Status Medication Sig Dispensed Refills Start Date Active levothyroxine (SYNTHROID, Take 137 mcg 0 LEVOTHROID) 137 MCG by mouth tablet Every morning on an empty stomach. Active sotalol AF (BETAPACE AF) Take 120 mg 0 120 MG tablet by mouth 2 (two) times daily. Active pantoprazole (PROTONIX) TAKE 1 TABLET 90 tablet 3 40 MG tablet BY MOUTH 9 DAILY Active cyanocobalamin, vitamin Take by 0 B-12, (VITAMIN B-12 ORAL) mouth. Active cholecalciferol, vitamin Take by 0 D3, (VITAMIN D3 ORAL) mouth. Active solifenacin (VESICARE) 5 Take 5 mg by 0 MG tablet mouth daily . Active ALBUTEROL SULFATE INHL Inhale by 0 mouth via inhaler as needed. Active travoprost (TRAVATAN Z) Place 1 drop 0 0.004 % Drop ophthalmic into both drops eyes nightly. Active aspirin 81 MG EC tablet Take 81 mg by 0 mouth daily. Active ELIQUIS 5 MG tablet TAKE 1 180 tablet 3 TABLET(5 MG) 0 BY MOUTH TWICE DAILY Active NIFEdipine (ADALAT CC) 30 Take 30 mg by 0 MG 24 hr tablet mouth daily. 11/21/2019 Discontinued (Error) NIFEdipine (PROCARDIA-XL) Take 1 tablet 90 tablet 0 30 MG (OSM) 24 hr tablet (30 mg total) 9 by mouth daily. 06/02/2020 Discontinued (Error) losartan (COZAAR) 50 MG Take 1 tablet 90 tablet 0 tablet (50 mg total) 9 by mouth daily. 11/21/2019 Discontinued (Error) furosemide (LASIX) 20 MG Take 20 mg by 0 tablet mouth daily. 01/02/2020 Discontinued apixaban (ELIQUIS) 5 mg Take 1 tablet 180 tablet 3 Tab tablet (5 mg total) 9 by mouth 2 (two) times daily. 11/21/2019 Discontinued (Error) oxybutynin (DITROPAN) 5 Take 1 tablet 180 tablet 3 MG tablet (5 mg total) 9 by mouth 2 (two) times daily. 06/02/2020 Discontinued (Error) NIFEdipine (ADALAT CC) 60 Take 60 mg by 0 MG 24 hr tablet mouth daily. 06/02/2020 Discontinued (Error) cefUROXime (CEFTIN) 250 Take 250 mg 0 MG tablet by mouth 2 (two) times daily. Active Problems Not on file Encounters Care Team Description Date Type Specialty Asif Zambrano MD ERCP,STENT REMOVAL 06/03/2020 Surgery Gastroenterology Rj aMguire MD Daniels, Milan Auriel, CRNA 06/03/2020 Anesthesia Gastroenterology Event Asif Zambrano MD 06/03/2020 Hospital Gastroenterology Encounter 06/03/2020 Travel Arrived 06/02/2020 Hospital Pre-Admission Testi ng Encounter 06/02/2020 Travel Asif Zambrano MD Arrived 06/01/2020 Hospital Pre-Admission Testi ng Encounter Mary Jo Borges MD 01/02/2020 Refill Geriatric Medicine Zo Woo MD Leibman, Neville Saul, MD 11/28/2019 Anesthesia Gastroenterology Event Asif Zambrano MD UPPER ENDOSCOPY,ULTRASOUND 11/28/2019 Surgery Gastroenterology Asif Zambrano MD 11/28/2019 Hospital Gastroenterology Encounter 11/28/2019 Travel Asif Zambrano MD 11/25/2019 Hospital Pre-Admission Testi ng Encounter 11/21/2019 Hospital Pre-Admission Testi ng Encounter 11/21/2019 Travel after 06/03/2019 Social History Date Tobacco Use Types Packs/Day Years Used Never Smoker Smokeless Tobacco: Never Used Drinks/Week oz/Week Comments Alcohol Use No Alcohol Habits Answer Date Recorded How often do you have a drink containing alcohol? Never 11/21/2019 How many drinks containing alcohol do you have on No t asked a typical day when you are drinking? How often do you have six or more drinks on one Not asked occasion? Sex Assigned at Date Recorded Not on file Date Recorded COVID-19 Exposure Response 06/03/2020 10:54 AM LEASE ADMINISTRATOR In the last month, have you been in contact with No / Unsure someone who was confirmed or suspected to have Coronavirus / COVID-19? Last Filed Vital Signs Reading Time Taken Comments Vital Sign 170/74 06/03/2020 12:50 PM LEASE ADMINISTRATOR Blood Pressure 84 06/03/2020 12:50 PM LEASE ADMINISTRATOR Pulse 36.7 C (98.1 F) 06/03/2020 1:05 PM LEASE ADMINISTRATOR Temperature 16 06/03/2020 1:05 PM LEASE ADMINISTRATOR Respiratory Rate 100% 06/03/2020 12:50 PM LEASE ADMINISTRATOR Oxygen Saturation - - Inhaled Oxygen Concentration 78.4 kg (172 lb 12.8 oz) 06/03/2020 10:33 AM LEASE ADMINISTRATOR Weight 170.2 cm (5' 7") 06/03/2020 10:33 AM LEASE ADMINISTRATOR Height 27.06 06/03/2020 10:33 AM LEASE ADMINISTRATOR Body Mass Index Plan of Treatment Health Maintenance Due Date Last Done Comments MEDICARE ANNUAL WELLNESS 08/31/1996 (YEAR 2 or FIRST YEAR if no IPPE) INFLUENZA VACCINE (#1) 2020 04/27/2016, 04/22/2015, 04/20/2014, Additional history exists PNEUMOCOCCAL 65+ YRS Completed 04/22/2015, 12/04/2014, 04/19/2011 Implants Device Identifier Shelf Expiration Date Model / Serial / L ot Explanted Type Area Manufactur er 09/09/2021 [id number] / / [id number] Stent Bili Rx [id number] N/A: Bile Duct [place] [id number] - [id number] SCI:PERIPH Implanted: Qty: 1 on 11/28/2019 by Asif Monte MD at [facility] Explanted: Qty: 1 on 06/03/2020 by Asif Zambrano MD at [facility] Description:Implanted 11/28/2019 Procedures Comments Procedure Name Priority Date/Time Associated Diag nosis REPORT OF PROCEDURE - 06/03/2020 ENDOSCOPY URL 12:28 PM LEASE ADMINISTRATOR FL ERCP Routine 06/03/2020 12:20 PM LEASE ADMINISTRATOR SARS-COV2/RT-PCR ([facility] & Routine 06/01/2020 REF LABS) 10:20 AM LEASE ADMINISTRATOR REPORT OF PROCEDURE - 11/28/2019 ENDOSCOPY URL 5:11 PM CDT FL ERCP STAT 11/28/2019 3:13 PM CDT ERCP,PAPILLOTOMY 11/28/2019 Cholangitis 2:26 PM CDT Liver function study, abnormal Special Needs (LINEAR SCOPE AND C-ARM) ERCP,BILIARY STENT 11/28/2019 Cholangitis 2:26 PM CDT Liver function study, abnormal Special Needs (LINEAR SCOPE AND C-ARM) PROCEDURE W/ C-ARM 11/28/2019 Cholangitis 2:26 PM CDT Liver function study, abnormal Special Needs (LINEAR SCOPE AND C-ARM) ERCP,BALLOON SWEEPING 11/28/2019 Cholangitis 2:26 PM CDT Liver function study, abnormal Special Needs (LINEAR SCOPE AND C-ARM) UPPER 11/28/2019 Cholangitis ENDOSCOPY,ULTRASOUND 2:26 PM CDT Liver function s tudy, abnormal Special Needs (LINEAR SCOPE AND C-ARM) SARS-COV2/RT-PCR ([facility] & Routine 11/25/2019 REF LABS) 10:20 AM CDT after 06/03/2019 Results * REPORT OF PROCEDURE - ENDOSCOPY URL (06/03/2020 12:28 PM LEASE ADMINISTRATOR) Narrative Performed At This result has an attachment that is n ot available. * [place] Endoscopic Retrograde Cholangiopancreatography (06/03/2020 12:20 PM LEASE ADMINISTRATOR) Only the most recent of 2 results within the time period is included. Specimen Narrative Performed At Fluoroscopic unit utilized for a procedure performed in the OR. No GE RIS interpretation was requested. Refer t o the operative report for findings. Refer to PACS for patient radiation d ose information. Procedure Note Interface, External Ris In - 06/03/2020 12:28 PM LEASE ADMINISTRATOR Fluoroscopic unit utilized for a procedure performed in the OR. No interpretation was requested. Refer to the operative report for findings. Refer to PACS for patient radiation dose information. Performing Organization Address City/State/Zipcode Ph one Number GE RIS * SARS-CoV2/RT-PCR (Asymptomatic ONLY) (06/01/2020 10:20 AM LEASE ADMINISTRATOR) Only the most recent of 2 results within the time period is included. SARS-COV2/RT-PC Negative Not Detected, [facility] R Negative, See [facility] external report for [facility] linked test SARS-COV-2 [facility] PERFORMING [facility] Specimen Other Narrative Performed At Negative result for this test determine s that SARS-CoV-2 RNA was not present in [facility] the specimen above the Limit of Detecti on (LOD). However, Negative results do [facility] not preclude SARS-CoV-2 infection and s hould not be used as the sole basis for treatment or patient management decisio ns. Negative results must be combined with clinical observations, patient his tory, and epidemiological information. A false negative result may occur if a sp ecimen is improperly collected, transported or handled. A false negat luis antonio result should be considered if patient's recent exposures or clinical presentation indicate that COVID-19 (SARS-CoV-2) is likely and diagnostic t ests for other causes of illness are negative. Re-testing should be consid ered in cases of suspected false negatives. The limit of detection for this assay i s 100 copies/mL. This SARS CoV-2 test is a real-time RT- PCR test intended for the qualitative detection of nucleic acid from SARS-CoV -2 in a nasopharyngeal swab specimen collected from individuals suspected of COVID-19 by their healthcare provider. This test has not been Food and Drug Ad ministration (FDA) cleared or approved. This is a modified version of an appr nyla Emergency Use Authorization (EUA) and is in the process of review by the FDA. Once authorized by the FDA, the issued EUA will be effective until the declaration that circumstances exist justifying the authorization of the pramod rgency use of in vitro diagnostic tests for detection and/or diagnosis of COVID -19 is terminated under Section 564(b)(2) of the Act or the EUA is revoked under Section 564(g) of the Act. Testing was performed using the Rivera SARS-CoV-2 assay. Fact Sheet for Healthcare Providers: https://www.molecular.rivera/trisha/RT_SAR P-HcE-3_GRA_Mtid_Wrfyl_60-705203.pdf Fact Sheet for Healthcare Patients: https://www.molecular.rivera/trisha/NG_TWJD-ZrK-6_Avzbxkd_Ypzq_Kfapi_EH_55-843168K9 .pdf Performing Laboratory: [place] [address] Performing Organization Address City/State/[facility] Ph one Number [place] [address] [facility] * REPORT OF PROCEDURE - ENDOSCOPY URL (11/28/2019 5:11 PM CDT) Narrative Performed At This result has an attachment that is n ot available. 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
--- OUTSIDE RECORDS SUMMARY | 2020-06-03 18:03 | XMS REPORT | Continuity of Care Document ---
Author Author [facility] t Organization [facility] Address [address] [place] [address] Phone Unavailable Care Team Providers Care Medical Delivery Driver Name Role Phone DO WAN SPARKS PCP Kenya DELACRUZ, Asif Attphys Ritter DELACRUZ, Angeles De La Rosa Attphys Dany BOLAÑOS, Jesus Vidal Attphys [phone] ASIF ZAMBRANO Attphys Unavailable Jony DELACRUZ, Curly Camagro Attphys [phone] Amna DELACRUZ, Melissa Pathak Attphys Gilda DELACRUZ, Jorge Atkinson Attphys COELHO, SOUHEIL Attphys Unavailable WAN SPARKS Attphys Unavailable WALKER LIPSCOMB Attphys Unavailable CURLY RIVERA Attphys Unavailable Whitney LARKIN Attphys Unavailable COELHO, SOUHEIL Admphys Unavailable Payers Payer Name Policy Type Policy Number Effective Date Expiration Date S jose MEDICAREMEDICARE A [id number] 1995-PresentMedicare [id number] 1995 00:00:00 [facility] MCR SUPPLEMENT/INDIVIDUALGENERIC MEDICAR E [id number] 2016-PresentMedigap [id number] 00:00:00 [facility] Miscellaneous Hmo NA 2017 00:00:00 [facility] Medicare A & B NA 1995 00:00:00 [facility] Problems Condition Name Condition Details Condition Category Status Onset Date Resolution Date Last Treatment Date Treating Clinician Comments Source Trochanteric bursitis of left hip Trochanteric bursitis of left hip Disease Active 2019-04-14 00[facility] K[facility] instability, left Knee instability, left Disease Active 2019-04-14 00:00:[address] [place] [address] Edema Edema Disease Active 2019-04-14 00:00:00 [place] Chest pain Chest pain Problem Active [facility] Fever Problem Active [facility] Sepsis Problem Active [facility] Elevated liver function tests Problem Active [facility] Ascending cholangitis Problem Active [facility] Chronic atrial fibrillation Problem Active [facility] Allergies, Adverse Reactions, Alerts Allergy Name Allergy Type Status Severity Reaction(s) Onset Date Inacti ve Date Treating Clinician Comments Source Adhesive Propensity to adverse reactions Active 2020-06-02 00:00:00 [facility] Penicillins Propensity to adverse reactions to drug Active Rash 2019-04-14 00:00:00 Colin Pelletieris t Sulfa (Sulfonamide Antibiotics) Propensity to adverse reactions to drug Active Rash 2019-04-14 00:00:00 [place] Penicillins Drug Allergy Active Hives 2018-12-16 00:00:00 [facility] Sulfa (Sulfonamide Antibiotics) Drug Allergy Active Hives 2018-12-16 00:00:00 [facility] Sulfa (Sulfonamide Antibiotics) Allergy to substance Active 2018-11-27 00:00:00 [facility] Penicillin Allergy to substance Active Severe "TONGUE SWELLIN G" 2018-11-27 00:00:00 [facility] Amiodarone Analogues Drug Allergy Active 2013-04-14 00:00:0 0 [facility] Codeine Drug Allergy Active 2013-04-14 00:00:00 [facility] Meperidine Drug Allergy Active 2013-04-14 00:00:00 [facility] Family History Family Member Diagnosis Comments Start Date Stop Date Source Natural brother Diabetes Colin M ethodist Natural mother Diabetes Colin Me thodist Social History Social Habit Start Date Stop Date Quantity Comments Source Exposure to SARS-CoV-2 (event) Not sure [facility] History SDOH Alcohol Std Drinks [place] History SDOH Alcohol Binge [place] Sex Assigned At [facility] Tobacco use and exposure 2019-04-14 00:00:00 2019-04-14 00:00:00 Jordan herrera used [place] Alcohol intake 2019-04-14 00:00:00 2019-04-14 00:00:00 Lifetime non-drinker (finding) [place] History SDOH Alcohol Frequency 2019-04-14 00:00:00 2019-04-14 00:00:0 0 1 [place] Smoking Status Start Date Stop Date Source Never smoker [place] Aram t Medications Ordered Medication Name Filled Medication Name Start Date Stop Da te Current Medication? Ordering Clinician Indication Dosage Frequency Signature (SIG) Comments Components Source levothyroxine (SYNTHROID, LEVOTHROID) 137 MCG tablet 2 13:35:33 Yes 137ug Take 137 mcg by mouth Every morning on a n empty stomach. [facility] sotalol AF (BETAPACE AF) 120 MG tablet 2020-06-03 13:35:33 Yes 120mg Q.5D Take 120 mg by mouth 2 (two) times daily. [facility] cyanocobalamin, vitamin B-12, (VITAMIN B-12 ORAL) 2020-06-03 13:35:33 Yes Take by mouth. [facility] cholecalciferol, vitamin D3, (VITAMIN D3 ORAL) 2020-06-03 13:35: 33 Yes Take by mouth. [facility] solifenacin (VESICARE) 5 MG tablet 2020-06-03 13:35:33 Yes 5mg QD Take 5 mg by mouth daily . [facility] ALBUTEROL SULFATE INHL 2020-06-03 13:35:33 Yes Inhale by mouth via inhaler as needed. [facility] travoprost (TRAVATAN Z) 0.004 % Drop ophthalmic drops 2020-06-03 13:35:33 Yes 1[drp] QD Place 1 drop into both eyes nightly. [facility] aspirin 81 MG EC tablet 2020-06-03 13:35:33 Yes 81mg QD Take 81 mg by mouth daily. [facility] NIFEdipine (ADALAT CC) 30 MG 24 hr tablet 2020-06-03 13:35:33 Yes 30mg QD Take 30 mg by mouth daily. [facility] NIFEdipine (ADALAT CC) 60 MG 24 hr tablet 2019-07 08:42:15 2020-06-02 00:00:00 No 60mg QD Take 60 mg by mouth daily. [facility] cefUROXime (CEFTIN) 250 MG tablet 2020-06-02 08:41:49 2019 00:00:00 No 250mg Q.5D Take 250 mg by mouth 2 (two) times daily . [facility] ELIQUIS 5 MG tablet 2020-01-02 00:00:00 Yes TAKE 1 TABLET(5 MG) BY MOUTH TWICE DAILY [facility] furosemide (LASIX) 20 MG tablet 2019-11-21 12:13:08 00:00:00 No 20mg QD Take 20 mg by mouth daily. [facility] furosemide (LASIX) 20 mg tablet 2019-04-14 10:58:57 Yes 20mg Q.5D Take 20 mg by mouth 2 (two) times a day. Micheal Nguyen aspirin (ECOTRIN) 81 MG enteric coated tablet 2019-04-14 10:58:5 7 Yes 81mg QD Take 81 mg by mouth daily. Anastasia Nguyen cholecalciferol, vitamin D3, (VITAMIN D3) 1,000 unit capsule 2019-04-14 10:58:05 Yes 1000U QD Take 1,000 Units by mouth piero Nguyen cyanocobalamin (VITAMIN B-12) 1000 MCG tablet 2019-04-14 10:58:0 5 Yes 1000ug QD Take 1,000 mcg by mouth daily. Colin Nguyen apixaban (ELIQUIS) 5 mg tablet 2019-04-14 10:58:05 Yes Q.5D Take by mouth 2 (two) times a day. Colin costa tiZANidine (ZANAFLEX) 2 MG tablet 2019-04-11 00:00:00 Yes TK 1 T PO TID FOR 15 DAYS PRN Colin Nguyen sotalol (BETAPACE) 120 MG tablet 2019-04-11 00:00:00 Yes 120mg Take 120 mg by mouth. Colin Nguyen solifenacin (VESICARE) 5 MG tablet 2019-03-27 00:00:00 Yes 5mg QD Take 5 mg by mouth daily. Colin Nguyen NIFEdipine CC (ADALAT CC) 30 MG 24 hr tablet 2019-03-06 00:00:00 Yes 30mg QD Take 30 mg by mouth daily. Anastasia Nguyen losartan (COZAAR) 50 MG tablet 2019-02-28 00:00:00 Yes 50mg QD Take 50 mg by mouth daily. Colin Nguyen levothyroxine (SYNTHROID) 137 mcg tablet 2019-02-28 00:00:00 Yes TK 1 T PO ONCE A DAY OES [place] pantoprazole (PROTONIX) 40 MG tablet 2019-01-21 00:00:00 Ye s TAKE 1 TABLET BY MOUTH DAILY [facility] pantoprazole (PROTONIX) 40 MG EC tablet 2019-01-20 00:00:00 Yes 40mg QD Take 40 mg by mouth daily. [place] Gabrielle costa apixaban (ELIQUIS) 5 mg Tab tablet 2018-12-30 00:00:00 202 00:00:00 No 5mg Q.5D Take 1 tablet (5 mg total) by mouth 2 (t wo) times daily. [facility] oxybutynin (DITROPAN) 5 MG tablet 2018-12-30 00:00:00 2019 00:00:00 No 5mg Q.5D Take 1 tablet (5 mg total) by mouth 2 (t wo) times daily. [facility] losartan (COZAAR) 50 MG tablet 2018-10-24 00:00:00 2020-06-02 00 :00:00 No 50mg QD Take 1 tablet (50 mg total) by mouth daily. [facility] NIFEdipine (PROCARDIA-XL) 30 MG (OSM) 24 hr tablet 2018-10-24 00:00:00 2019-11-21 00:00:00 No 30mg QD Take 1 tab let (30 mg total) by mouth daily. [facility] r Apixaban (Eliquis) 5 Mg TABLET Apixaban (Eliquis) 5 Mg TABLET Yes 2.5 Every 12 Hours [facility] Furosemide (Lasix) 20 Mg TABLET Furosemide (Lasix) 20 Mg TABLET Yes 20 Daily [facility] Levothyroxine Sodium Levothyroxine Sodium Yes 137 Daily [facility] Losartan Potassium Losartan Potassium Yes 25 Da reagan [facility] Nifedipine (Nifedipine Er) 30 Mg TAB.ER.24 Nifedipine (Nifedipine Er) 30 Mg TAB.ER.24 Yes 60 Daily [facility] Pantoprazole Sodium (Protonix) 40 Mg SUSPDR.PKT Pantop razole Sodium (Protonix) 40 Mg SUSPDR.PKT Yes 40 Daily [facility] Solifenacin Succinate (Vesicare) 5 Mg TABLET Solifenac in Succinate (Vesicare) 5 Mg TABLET Yes 5 Bedtime [facility] Sotalol Hcl (Sotalol) 80 Mg TABLET Sotalol Hcl (Sotalol) 80 Mg TABLET Yes 120 Twice A Day [facility] Aspirin (Aspirin Ec) 81 Mg TABLET. Aspirin (Aspirin Ec) 81 Mg TABLET. 2019-11-09 00:00:00 No 81 Daily [facility] Apixaban 5 Mg Bid Apixaban 5 Mg Bid 2019-11-04 00:00:00 No 1 Twice A Day [facility] Oxybutynin Chloride (Oxybutynin Chloride Er) 5 Mg TAB. ER.24 Oxybutynin Chloride (Oxybutynin Chloride Er) 5 Mg TAB.ER.24 2019-11-04 00:00:00 No 5 [facility] Pantoprazole Sodium (Protonix) 40 Mg TABLET. Pantopr azole Sodium (Protonix) 40 Mg TABLET. 2019-11-04 00:00:00 No 1 Daily [facility] Vital Signs Vital Name Observation Time Observation Value Comments Source Body temperature 2020-06-03 13:05:00 36.72 Cathy [facility] Respiratory rate 2020-06-03 13:05:00 16 /min [facility] Systolic blood pressure 2020-06-03 12:50:00 170 mm[Hg] [facility] Diastolic blood pressure 2020-06-03 12:50:00 74 mm[Hg] [facility] Heart rate 2020-06-03 12:50:00 84 /min [facility] Oxygen saturation in Arterial blood by Pulse oximetry 2019-07 12:50:00 100 [facility] 2020-06-03 10:33:00 170.2 cm [facility] Body weight 2020-06-03 10:33:00 78.382 kg [facility] BMI 2020-06-03 10:33:00 27.06 kg/m2 [facility] Body Temperature 2019-11-09 08:57:00 97.8 [degF] [facility] BMI (Body Mass Index) 2019-11-08 01:53:00 28.6 kg/m2 [facility] Weight 2019-11-04 18:29:00 177 [lb_av] [facility] Procedures Procedure Date / Time Performed Performing Clinician [facility] e REPORT OF PROCEDURE - ENDOSCOPY URL 2020-06-03 12:28:43 Asif Zambrano [facility] [place] ERCP 2020-06-03 12:20:00 Asif Zambrano [facility] SARS-COV2/RT-PCR ([facility]) 2020-06-01 10:20:00 Asif Zambrano [facility] REPORT OF PROCEDURE - ENDOSCOPY URL 2019-11-28 17:11:48 Asif Zambrano [facility] [place] ERCP 2019-11-28 15:13:00 Asif Zambrano [facility] UPPER ENDOSCOPY,ULTRASOUND 2019-11-28 14:26:00 Asif Zambrano [facility] ERCP,BALLOON SWEEPING 2019-11-28 14:26:00 [facility] Asif [facility] PROCEDURE W/ C-ARM 2019-11-28 14:26:00 vasiliy Asif [facility] ERCP,BILIARY STENT 2019-11-28 14:26:00 [facility] ERCP,PAPILLOTOMY 2019-11-28 14:26:00 [facility] SARS-COV2/RT-PCR ([facility]) 2019-11-25 10:20:00 [facility] Computed tomography of abdomen and pelvis with contrast 00:00:00 [facility] Ultrasound of soft tissue of head and neck 2019-06-02 00:00:00 [facility] X-ray of chest, two views 2019-05-31 00:00:00 WALKER LIPSCOMB CH, I [facility] Plan of Care Planned Activity Planned Date Details Comments Source Future Scheduled Test 2020-03-02 00:00:00 INFLUENZA VACCINE (#1) [code = INFLUENZA VACCINE (#1)] [facility] Future Scheduled Test 2020-01-31 00:00:00 INFLUENZA VACCINE [code = INFLUENZA VACCINE] [facility] Scheduled Test 1996-08-31 00:00:00 MEDICARE ANNUAL WE LLNESS (YEAR 2 or FIRST YEAR if no IPPE) [code = MEDICARE ANNUAL WELLNESS (YEAR 2 or FIRST YEAR if no IPPE)] [facility] Future Scheduled Test 1995-09-28 00:00:00 65+ PNEUMOCOCCAL V ACCINE (1 of 1 - PPSV23) [code = 65+ PNEUMOCOCCAL VACCINE (1 of - PPSV23)] [facility] Future Scheduled Test 1980 00:00:00 SHINGLES VACCINES (#1) [code = SHINGLES VACCINES (#1)] [facility] Instructions Atrial Fibrillation [facility] Encounters Start Date/Time End Date/Time Encounter Type Admission Type Attendi [facility] Care Department Encounter ID Source 2019-11-04 22:02:00 2019-11-09 11:25:00 Discharged Inpatient 1 VIMAL COELHO [facility] [id number] [facility] 2019-06-02 12:47:00 2019-06-02 12:47:00 Registered Clinic 3 WAN DOZIER [facility] [id number] [facility] 2019-05-31 11:37:00 2019-05-31 13:56:00 Departed Emergency Room 1 WALKER LIPSCOMB [facility] [id number] [facility] 2018-12-01 00:55:00 2018-12-01 03:50:00 Departed Emergency Room 1 DEBBIE LARKIN [facility] [id number] [facility] 2018-11-27 16:38:00 2018-11-28 12:30:00 Discharged Inpatient (obs) 1 WALKER RODARTE [facility] [id number] [facility] Results Test Description Test Time Test Comments Results Result Comments Source [id number] 2020-06-03 12:28:29 Reason for exam:->abnormal l iver function study [facility] : 1930 Sex: FFluoroscopic unit utilized for a procedure performed in the OR. No interpretation was requested. Refer to the operative report for findings. Refer to PACS for patient radiation dose information. [place] Endoscopic Retrograde Cholangiopancreatography 2020-06-03 12: 28:29 Interface, External Ris In - 06/03/2020 12:28 PM CSTFluoroscopic unit utilized for a procedure performed in the OR. No interpretation was requested. Refer to the operative report for findings. Refer to PACS for patient radiation dose information. [facility] Gayathri herrera SARS-CoV2/RT-PCR (Asymptomatic ONLY) 2020-06-01 22:22:00 Test Item SARS-COV2/RT-PCR (test code = 38623-5) Negative N ot Detected, Negative, See external report for linked test SARS-COV-2 PERFORMING LAB (test code = 15908-9) [facility] JOVITA CHARMAINE (test code = CHARMAINE) Negative result for this isidro t determines that SARS-CoV-2 RNA was not present in the specimen above the Limit of Detection (LOD). However, Negative results do not preclude SARS-CoV-2 infection and should not be used as the sole basis for treatment or patient management decisions. Negative results must be combined with clinical observations, patient history, and epidemiological information. A false negative result may occur if a specimen is improperly collected, transported or handled. A false negative result should be considered if patient's recent exposures or clinical presentation indicate that COVID-19 (SARS-CoV-2) is likely and diagnostic tests for other causes of illness are negative. Re-testing should be considered in cases of suspected false negatives. The limit of detection for this assay is 100 copies/mL. This SARS CoV-2 test is a real-time RT-PCR test intended for the qualitative detection of nucleic acid from SARS-CoV-2 in a nasopharyngeal swab specimen collected from individuals suspected of COVID-19 by their healthcare provider. This test has not been Food and Drug Administration (FDA) cleared or approved. This is a modified version of an approved Emergency Use Authorization (EUA) and is in the process of review by the FDA. Once authorized by the FDA, the issued EUA will be effective until the declaration that circumstances exist justifying the authorization of the emergency use of in vitro diagnostic tests for detection and/or diagnosis of COVID-19 is terminated under Section 564(b)(2) of the Act or the EUA is revoked under Section 564(g) of the Act. Testing was performed using the deviantART SARS-CoV-2 assay. Fact Sheet for Healthcare Providers:https://www.[employer]/trisha/RB_YXGX-VtM-2_CVN_Sane_Bgchi_20-84960 4.pdf Fact Sheet for Healthcare Patients:https://www.[facility].silva/trisha/EJ_HHEC-EeX-9_Jsrsjfb_Jlbq_Xciec_AI_94-370453P9.pdf Performing Laboratory:[facility] [place] [address] [facility])2020-06-01 22:22:00* Test Item Value Reference Range Interpretation Comments SARS-COV2/RT-PCR (test code = 3497174) Negative N ot Detected, Negative, See external report for linked test SARS-COV-2 PERFORMING LAB (test code = 1174841) [facility] JOVITA Negative result for this test determines that SARS-CoV-2 RNA was not present in the specimen above the Limit of Detection (LOD). However, Negative results do n ot preclude SARS-CoV-2 infection and should not be used as the sole basis for tr eatment or patient management decisions. Negative results must be combined with clinical observations, patient history, and epidemiological information. A false negative result may occur if a specimen is improperly collected, transported or handled. A false negative result should be considered if patient's recent expo sures or clinical presentation indicate that COVID-19 (SARS-CoV-2) is likely and diagnostic tests for other causes of illness are negative. Re-testing should be considered in cases of suspected false negatives.The limit of detection for this assay is 100 copies/mL.This SARS CoV-2 test is a real-time RT-PCR test intended for the qualitative detection of nucleic acid from SARS-CoV-2 in a nasopharyn geal swab specimen collected from individuals suspected of COVID-[address] [facility] provider.This test has not been Food and Drug Administration (FDA) clear ed or approved. This is a modified version of an approved Emergency Use Authori zation (EUA) and is in the process of review by the FDA. Once authorized by [facility] FDA, the issued EUA will be effective until the declaration that circumstances exist justifying the authorization of the emergency use of in vitro diagnostic tests for detection and/or diagnosis of COVID-19 is terminated under Section 564 (b)(2) of the Act or the EUA is revoked under Section 564(g) of the Act.Testing was performed using the Silva SARS-CoV-2 assay.Fact Sheet for Healthcare Provid ers:https://www.molecular.silva/trisha/JR_WKGI-AuY-3_URI_Gkjg_Bfwvc_67-697622.pdfF act Sheet for Healthcare Patients:https://www.molecular.silva/trisha/TT_AMHP-CeK-0 _Patient_Fact_Sheet_EN_51-517784M0.pdfPerforming Laboratory:[place] [address], [place] [address]NW, [id number] 17:03:00Reason for exam:->ercpFINAL REPORT Technique: ERCP dated 11/28/2019. HISTORY: ERCP COMPARISON: None IMPRESSION: Total fluoroscopy time is not listed. Total number of images is eight. Images reveal contrast within the biliary system. Please see operative report for details. Signed: Jeanine Ryan Verified Date/Time: 11/28/2019 17:03:06 Reading Location: [address] Transitional Reading Room -COV2/RT-PCR ([facility])2019-11-26 16:00:00* Test Item Value Reference Range Interpretation Comments SARS-COV2/RT-PCR (test code = 1970250) Negative Not Detected, N egative SARS-COV-2 PERFORMING LAB (test code = 9654072) [facility] Blood leukocytes automated count (number/volume)2019-11-09 06:04:00* Test Item Value Reference Range Interpretation Comments White Blood Count (test code = 6690-2) 10.38 4.8-10.8 [facility] erythrocytes automated count (number/volume)2019-11-09 06:04:00* Test Item Value Reference Range Interpretation Comments Red Blood Count (test code = 789-8) 4.29 3.6-5.1 [facility] hemoglobin measurement (moles/volume)2019-11-09 06:04:00* Test Item Value Reference Range Interpretation Comments Hemoglobin (test code = 37994-2) 11.8 12.0-16.0 [facility] HospitalAutomated blood hematocrit (volume fraction)2019-11-09 06:04:00* Test Item Value Reference Range Interpretation Comments Hematocrit (test code = 4544-3) 37.0 34.2-44.1 [facility] HospitalAutomated erythrocyte mean corpuscular [id number] 06:04:00* Test Item Value Reference Range Interpretation Comments Mean Corpuscular Volume (test code = 787-2) 86.2 81-99 [facility] HospitalAutomated erythrocyte mean corpuscular hemoglobin (mass per erythrocyte)2019-11-09 06:04:00* Test Item Value Reference Range Interpretation Comments Mean Corpuscular Hemoglobin (test code = 785-6) 27.5 28-32 [facility] HospitalAuthighsmith[facility] hospitaled erythrocyte mean corpuscular hemoglobin concentration measurement (mass/volume)2019-11-09 06:04:00* Test Item Value Reference Range Interpretation Comments Mean Corpuscular Hemoglobin Concent (test code = 786-4) 31.9 31-35 [facility] HospitalRDW [id number]-[id number] 06:04:00* Test Item Value Reference Range Interpretation Comments Red Cell Distribution Width (test code = 12754-5) 14.0 11.7 -14.4 [facility] HospitalAuthighsmith[facility]raine[facility] hospitaled blood platelet count (count/volume)2019-11-09 06:04:00* Test Item Value Reference Range Interpretation Comments Platelet Count (test code = 777-3) 218 140-360 [facility] HospitalAutomated blood segmented neutrophil count as percentage of total rsoqcerbis3543-89-05 06:04:00* Test Item Value Reference Range Interpretation Comments Neutrophils (%) (Auto) (test code = 66962-6) 65.5 38.7-80.0 [facility] HospitalAutomated blood lymphocyte count as percentage ot total ashwlujbob4279-26-09 06:04:00* Test Item Value Reference Range Interpretation Comments Lymphocytes (%) (Auto) (test code = 736-9) 23.2 18.0-39.1 [facility] HospitalAutomated blood monocyte count as percentage of total [id number] 06:04:00* Test Item Value Reference Range Interpretation Comments Monocytes (%) (Auto) (test code = 5905-5) 8.9 4.4-11.3 [facility] HospitalAutomated blood eosinophil count as percentage of total ibidxbmsch2993-46-48 06:04:00* Test Item Value Reference Range Interpretation Comments Eosinophils (%) (Auto) (test code = 713-8) 1.7 0.0-6.0 [facility] HospitalAutomated blood basophil count as percentage of total [id number] 06:04:00* Test Item Value Reference Range Interpretation Comments Basophils (%) (Auto) (test code = 706-2) 0.3 0.0-1.0 [facility] HospitalFluoroscopic procedure less than one hour [id number] 06:04:00* Test Item Value Reference Range Interpretation Comments IM GRANULOCYTES % (test code = IM GRANULOCYTES %) 0.4 0.0- 1.0 [facility] HospitalAutomated blood neutrophil count 2019-11-09 06:04:00* Test Item Value Reference Range Interpretation Comments Neutrophils # (Auto) (test code = 751-8) 6.8 2.1-6.9 [facility] HospitalBlood lymphocytes count (number/volume) 2019-11-09 06:04:00* Test Item Value Reference Range Interpretation Comments Lymphocytes # (Auto) (test code = 83024-3) 2.4 1.0-3.2 [facility] HospitalBlood monocytes automated count (number/volume)2019-11-09 06:04:00* Test Item Value Reference Range Interpretation Comments Monocytes # (Auto) (test code = 742-7) 0.9 0.2-0.8 [facility] HospitalAutomated blood eosinophil count 2019-11-09 06:04:00* Test Item Value Reference Range Interpretation Comments Eosinophils # (Auto) (test code = 711-2) 0.2 0.0-0.4 [facility] HospitalAutomated blood basophil count (count/volume)2019-11-09 06:04:00* Test Item Value Reference Range Interpretation Comments Basophils # (Auto) (test code = 704-7) 0.0 0.0-0.1 [facility] HospitalFluoroscopic procedure less than one hour vrcszdbf9794-44-89 06:04:00* Test Item Value Reference Range Interpretation Comments Absolute Immature Granulocyte (auto (isidro t code = Absolute Immature Granulocyte (auto) 0.04 0-0.1 [facility] or plasma sodium measurement (moles/volume)2019-11-09 06:04:00* Test Item Value Reference Range Interpretation Comments Sodium Level (test code = 2951-2) 141 136-145 [facility] Hospitaler[facility] or plasma potassium measurement (moles/volume)2019-11-09 06:04:00* Test Item Value Reference Range Interpretation Comments Potassium Level (test code = 2823-3) 4.5 3.5-5.1 [facility] Hospitaler[facility] or plasma chloride measurement (moles/volume)2019-11-09 06:04:00* Test Item Value Reference Range Interpretation Comments Chloride Level (test code = 2075-0) 109 98-107 [facility]er[facility] or plasma carbon dioxide, total measurement (moles/volume)2019-11-09 06:04:00* Test Item Value Reference Range Interpretation Comments Carbon Dioxide Level (test code = 2028-9) 22 22-29 [facility]er[facility] or plasma anion tom1105-60-13 06:04:00* Test Item Value Reference Range Interpretation Comments Anion Gap (test code = 34990-8) 14.5 8-16 [facility] or plasma urea nitrogen measurement (mass/volume)2019-11-09 06:04:00* Test Item Value Reference Range Interpretation Comments Blood Urea Nitrogen (test code = 3094-0) 14 7-26 [facility]er[facility] or plasma creatinine measurement (mass/volume)2019-11-09 06:04:00* Test Item Value Reference Range Interpretation Comments Creatinine (test code = 2160-0) 0.68 0.57-1.11 [facility]er[facility] or plasma urea nitrogen/creatinine mass gmbqk2329-59-18 06:04:00* Test Item Value Reference Range Interpretation Comments BUN/Creatinine Ratio (test code = 3097-3) 21 6-25 [facility] HospitalEstimated glomerular filtration rate (GFR) qockjckpwlpww9086-18-82 06:04:00* Test Item Value Reference Range Interpretation Comments Estimat Glomerular Filtration Rate (test code = 560337525) > 60 >60 Ranges were taken from the National Kidney Disease Education Program and the [facility] Kidney Foundation literature.Reference ranges:60 or greater: Plfmwj42-38 ( for 3 consecutive months): Chronic kidney disease 15 or less: Kidney failureUT Health [facility] Car[facility] HospitalGlucose wuysczoqqcn1390-69-90 06:04:00* Test Item Value Reference Range Interpretation Comments Glucose Level (test code = TYW1285) 95 74-118 [facility]er[facility] or plasma calcium measurement (mass/volume)2019-11-09 06:04:00* Test Item Value Reference Range Interpretation Comments Calcium Level (test code = 83596-3) 9.4 8.4-10.2 [facility] or plasma total bilirubin measurement (mass/volume)2019-11-09 06:04:00* Test Item Value Reference Range Interpretation Comments Total Bilirubin (test code = 1975-2) 0.6 0.2-1.2 [facility] HospitalFluoroscopic procedure less than one hour ivoqsgqg7070-74-11 06:04:00* Test Item Value Reference Range Interpretation Comments Aspartate Amino Transf (AST/SGOT) (test code = Aspartate Amino Transf (AST/SGOT)) 22 5-34 [facility]er[facility] or plasma alanine aminotransferase measurement (enzymatic activity/volume)2019-11-09 06:04:00* Test Item Value Reference Range Interpretation Comments Alanine Aminotransferase (ALT/SGPT) (test code = 1742-6) 41 0-55 [facility]er[facility] or plasma protein measurement (mass/volume)2019-11-09 06:04:00* Test Item Value Reference Range Interpretation Comments Total Protein (test code = 2885-2) 6.7 6.5-8.1 [facility]er[facility] or plasma albumin measurement (mass/volume)2019-11-09 06:04:00* Test Item Value Reference Range Interpretation Comments Albumin (test code = 1751-7) 3.3 3.5-5.0 [facility] HospitalPlasma globulin measurement (mass/volume) 2019-11-09 06:04:00* Test Item Value Reference Range Interpretation Comments Globulin (test code = 77087-0) 3.4 2.3-3.5 [facility] or plasma albumin/globulin mass bfivq5441-94-94 06:04:00* Test Item Value Reference Range Interpretation Comments Albumin/Globulin Ratio (test code = 1759-0) 1.0 0.8-2.0 [facility]er[facility] or plasma alkaline phosphatase measurement (enzymatic activity/volume)2019-11-09 06:04:00* Test Item Value Reference Range Interpretation Comments Alkaline Phosphatase (test code = 6768-6) 93 40-150 [facility]er[facility] or plasma conjugated bilirubin measurement (mass/volume)2019-11-08 11:30:00* Test Item Value Reference Range Interpretation Comments Direct Bilirubin (test code = 68765-0) 0.3 0.0-0.5 [facility]er[facility] or plasma hepatitis A virus IgM antibody detection by qieduyykfcs3104-97-84 17:00:00* Test Item Value Reference Range Interpretation Comments Hepatitis A IgM Antibody (test code = 87039-0) Negative Negativ e [facility] Hospitalerum or plasma hepatitis B virus surface antigen detection by jqfipnkdimc3672-60-27 17:00:00* Test Item Value Reference Range Interpretation Comments Hepatitis B Surface Antigen (test code = 5196-1) Negative Negat luis antonio [facility] Hospitalerum or plasma hepatitis B virus core IgM antibody detection by plxihqccamp2583-30-93 17:00:00* Test Item Value Reference Range Interpretation Comments Hepatitis B Core IgM Antibody (test code = 03080-9) Negative Ne gative [facility] Hospitalerum hepatitis C virus antibody uldxthxse4462-88-63 17:00:00* Test Item Value Reference Range Interpretation Comments Hepatitis C Antibody (test code = 98852-3) <0.1 0.0-0.9 Negative: < 0.8 Indeterminate: 0.8 - 0.9 Positive: > 0.9 The CDC recommends that a positive HCV antibody result be followed up with a HCV Nucleic Acid Amplification test (059164).Performed at: - [facility] [id number] Director: Mazin Champagne MD, Phone: [phone] [facility] HospitalERCP TO BE ZJVM4393-87-35 16:04:00 [facility] [address] [address] Patient Name: BRISEIDA LEON MR #: [id number] : 1930 Age/Sex: 89/F Req #: [id number] Adm Physician: VIMAL COELHO MD Ordered by: JOHNATHAN COELHO MD Report #: [id number] [facility] Procedure: [id number] DX/ERCP TO BE R EAD Exam Date: 11/07/19 Exam Time: 1442 REPORT STATUS: Signed OR Fluoroscopy: I MPRESSION: Fluoroscopy service provided in the OR. Interpretation not requeste d. Signed by: Nain Ibarra MD on 11/07/2019 4:04 PM Dictated By: KYLER IBARRA MD Transcribed By: OSVALDO on 11/07/19 160 COPY TO: JOHNATHAN COELHO MD Fluoroscopic procedure less than one hour bgxprjgn3440-34-10 05:40:00* Test Item Value Reference Range Interpretation Comments Lactic Acid Level (test code = Lactic Acid Level) 1.4 0.5- 2.0 [facility] HospitalCT ABDOMEN/PELVIS F2465-55-05 20:50:00 [facility] [address] [address] Patient Name: BRISEIDA LEON MR #: [id number] : 1930 Age/Sex: 89/F Req #: [id number] Adm Physician: VIMAL COELHO MD Ordered by: MONTSERRAT MORLEY MD Report #: [id number] Location: MED/SURG3 Room/Bed: [facility] Procedure: [id number] CT/CT ABD OMEN/PELVIS W Exam Date: 11/04/19 Exam Time: 2019 REPORT STATUS: Signed CT Abdomen A nd Pelvis with Intravenous Contrast INDICATION: Y fever, elevated l ft's Y TECHNIQUE: Thin collimation axial images obtained from the diaphr agm to the level of the pubic symphysis following the uneventful administratio n of 100 cc of low osmolar, nonionic intravenous contrast. Dose reductio n techniques used: Automated exposure control, adjustment of the mAs and/or kV p according to patient size, standardized low-dose protocol, and/or iterative reconstruction technique. RADIATION DOSE: Total DLP: 693.89 mGy*c m Estimated effective dose: (DLP x 0.015 x size factor) mSv CT DIvol has been reviewed. It is below the limits set by the Radiation Protocol Committee (RPC). COMPARISON: None. ABDOMEN FINDINGS: Lung Bases: Partially loculated left pleural effusion. Linear bands of chronic atelectasi s/scarring in the left lung base. The heart is enlarged. Small hiatal hernia. Liver: Decreased attenuation suggestive of steatosis. No evidence for mass. Gallbladder: Absent. Biliary tree: Diffuse mild intrahepatic bile di latation. The common hepatic duct measures 1.6 cm. The cystic duct is distende d with fluid. The distal common bile duct measures 1.2 cm. There are no intral uminal filling defects. No evidence of pneumobilia. Pancreas: Normal atte nuation without mass or ductal dilatation. Spleen: Normal in size. No evid ence of mass. Adrenal Glands: No evidence for mass. Kidneys: Rig ht: Multiple peripelvic cysts with a large peripelvic cyst measuring 3.7 cm. N ormal enhancement the parenchyma. No hydronephrosis. Left: Normal enhance ment. Calculus in the proximal lower pole measures 10 mm and is stable. There is a prominent renal pelvis without calyceal dilatation. No perinephric infla mmation. Lymph Nodes: No enlarged abdominal or periaortic lymph nodes. Aorta: Mildly tortuous with scattered calcifications PELVIS FINDINGS: Bowel: Stomach: Normal. Small Bowel: Periampullary duodenal diverti culum measures approximate 4 cm. There are 2 subcentimeter hyperattenuating fo ci layering dependently in the diverticulum (sagittal image 58). The remainde r of the small bowel is normal in diameter with normal wall thickness. La rge Bowel: A right colon is not visualized. This may be due to right hemicolec aaron and primary ileocolic anastomosis. Moderate burden of stool in the mid tr ansverse colon extending to the descending colon. Multiple diverticula in the sigmoid colon without associated inflammation area Bladder: Very well-diste nded without mural thickening or perivesicular inflammation. The uterus i s absent. No adnexal mass. Peritoneum/retroperitoneum: No free fluid or flu id collection. Lobulated peritoneal calcification in the left lower quadrant m easures 15 mm. No free air. Bones: Diffusely demineralized. The patient i s status post laminectomy at L3 and L4. No fusion hardware is present. There i s a compression fracture of L1 of approximately 50%. No retropulsed bone fragm ents. Moderate degenerative changes of the lumbar spine from L2 to L5. There i s a stimulator device anterior to the sacral right of midline. The battery pac k is in the posterior right pelvis. Right hip prosthesis is intact and normal in position without associated fracture. IMPRESSION: 1. Status po st cholecystectomy. Diffuse intrahepatic and hepatic bile duct dilatation. Per iampullary duodenal diverticulum with 2 subcentimeter radiodensities layering posterior. These may be the result of passed gallstones. Concomitant cholangit is cannot be excluded in the appropriate clinical setting. If this persists, E PIECE MARKER SMALL ARMS should be considered to exclude ampullary stricture or ampullary mass. 2. Mild steatosis. 3. Diverticulosis coli. No evidence for bowel obstruct ion or inflammation. Suspected postoperative changes of the large bowel. Small hiatal hernia. 4. Very well-distended bladder with resulting prominence of the left renal pelvis. Multiple peripelvic cysts in the right kidney. 5. L1 compression fracture of approximately 50%. The spinal canal is patent. Po stoperative changes of the lumbar spine as described above. 6. Small, possi mally loculated left pleural effusion. Signed by: MD chinmay Major n 11/04/2019 9:03 PM Dictated By: EYAD RUSSELL MD Electronically Sign ed By: EYAD RUSSELL MD on 11/04/192102 Transcribed By: OSVALDO on 2102 COPY TO: MONTSERRAT MORLEY MD CHEST SINGLE (PORTABLE) 2019-11-04 20:15:00 [address] [address] Patient Name: BRISEIDA LEON MR #: [id number] : 1930 Age/Sex: 89/F Req #: [id number] Adm Physician: Ordered by: BEULAH GORMAN NP Report #: [id number] Location: ER Room/Bed: Procedure: [id number] DX/CHEST SINGL E (PORTABLE) Exam Date: 11/04/19 Exam Time: 1999 REPORT STATUS: Signed EXAMINATION: CHEST SINGLE (PORTABLE) COMPARISON: Chest x-ray 05/31/2019 INDICA TION: Fever, chills, elevated LFTs Y ERMD ORDER [id number] Y DISCUSSION: Frontal view of the chest obtained at 2006 hours. HE ART AND MEDIASTINUM: The heart is mildly enlarged and stable. There are calci fications throughout the aortic arch. Coronary artery calcifications identifie d on previous exam are not visualized on this image. LINES: None. L UNGS: Diffuse hyperinflation suggestive of small airways disease. No pneumoni a or pulmonary edema. Calcified granulomata in the right upper lobe are stable . PLEURA: No pleural effusion or pneumothorax. BONES AND SOFT TISSUES : Surgical anchors in the right humeral head. The soft tissues are normal. IMPRESSION: 1. Stable mild cardiomegaly. No evidence of CHF or pulmona ry edema. 2. Stable pulmonary hyperinflation. No acute pulmonary process. Signed by: Dr. Eyad Russell MD on 11/04/2019 8:37 PM Dictated By: EYAD RUSSELL MD 36 Transcribed By: OSVALDO on 11/04/192036 COPY TO: BEULAH GORMAN NP Urine color tucqlzxgmqnjq9948-15-43 19:51:00* Test Item Value Reference Range Interpretation Comments Urine Color (test code = 5778-6) YELLOW YELLOW [facility] HospitalUrine bdbxfng6304-49-18 19:51:00* Test Item Value Reference Range Interpretation Comments Urine Clarity (test code = 70879-2) SL CLOUDY CLEAR [facility] Hospitalpecific gravity of Urine by Test strip 2019-11-04 19:51:00* Test Item Value Reference Range Interpretation Comments Urine Specific Lorena (test code = 5811-5) 1.020 1.010-1.02 5 [facility] HospitalUrine pH measurement by automated test mxnaw1001-36-57 19:51:00* Test Item Value Reference Range Interpretation Comments Urine pH (test code = 37745-7) 7 5-7 [facility] HospitalUrine leukocyte esterase detection by zwklkyvy2137-08-28 19:51:00* Test Item Value Reference Range Interpretation Comments Urine Leukocyte Esterase (test code = 5799-2) NEGATIVE NEGATIVE [facility] HospitalUrine nitrite itiqaqllu3805-61-11 19:51:00* Test Item Value Reference Range Interpretation Comments Urine Nitrite (test code = 53575-0) NEGATIVE NEGATIVE [facility] HospitalUrine protein measurement by test strip (mass/volume)2019-11-04 19:51:00* Test Item Value Reference Range Interpretation Comments Urine Protein (test code = 5804-0) NEGATIVE NEGATIVE [facility] HospitalUrine glucose yesejweuh5825-05-65 19:51:00* Test Item Value Reference Range Interpretation Comments Urine Glucose (UA) (test code = 2349-9) NEGATIVE NEGATIVE [facility] HospitalUrine ketones detection by automated test rbjrz3589-68-62 19:51:00* Test Item Value Reference Range Interpretation Comments Urine Ketones (test code = 32088-4) NEGATIVE NEGATIVE [facility] HospitalUrine urobilinogen measurement by test strip (mass/volume)2019-11-04 19:51:00* Test Item Value Reference Range Interpretation Comments Urine Urobilinogen (test code = 27950-3) 0.2 0.2-1 [facility] HospitalUrine total bilirubin measurement (mass/volume)2019-11-04 19:51:00* Test Item Value Reference Range Interpretation Comments Urine Bilirubin (test code = 1978-6) NEGATIVE NEGATIVE [facility] HospitalUrine erythrocytes pfgwbwdxd4620-94-05 19:51:00* Test Item Value Reference Range Interpretation Comments Urine Blood (test code = 62994-9) TRACE NEGATIVE [facility] HospitalAutomated urine sediment leukocyte count by microscopy (number/high power field)2019-11-04 19:51:00* Test Item Value Reference Range Interpretation Comments Urine WBC (test code = 5821-4) NONE 0-5 [facility] HospitalErythrocytes detection in urine sediment by light gwnqlazyam0169-70-19 19:51:00* Test Item Value Reference Range Interpretation Comments Urine RBC (test code = 09587-6) 0-5 0-5 [facility] HospitalBacteria detection in urine sediment by light ztracwgvej6950-97-82 19:51:00* Test Item Value Reference Range Interpretation Comments Urine Bacteria (test code = 25776-7) RARE NONE [facility] HospitalEpithelial cells detection in urine sediment by light nvslpxfllo7881-20-88 19:51:00* Test Item Value Reference Range Interpretation Comments Urine Epithelial Cells (test code = 00769-7) RARE NONE [facility] HospitalProthrombin time (PT) in platelet poor plasma by coagulation grpbf2381-22-43 18:56:00* Test Item Value Reference Range Interpretation Comments Prothrombin Time (test code = 5902-2) 15.8 11.9-14.5 [facility] HospitalINR in Platelet poor plasma by Coagulation kogum8598-32-36 18:56:00* Test Item Value Reference Range Interpretation Comments Prothromb Time International Ratio (test code = 6301-6) 1.18 Oral Anticoagulant Therapy INR Values:1. Low Intensity Therapy 1.5 - 2.02 . Moderate Intensity Therapy 2.0 - 3.03. High Intensity Therapy(1) 2.5 - 3. 54. High Intensity Therapy(2) 3.0 - 4.05. Panic Value INR > 5.0 [facility] HospitalActivated partial thromboplastin time (aPTT) in platelet poor plasma by coagulation ieuth5023-17-13 18:56:00* Test Item Value Reference Range Interpretation Comments Activated Partial Thromboplast Time (test code = 20876-2) 33.3 23.8-35.5 [facility] HospitalInfluenza virus A and B antigen identification by klhgvgjwxlbalukvvn8572-42-19 18:56:00* Test Item Value Reference Range Interpretation Comments Influenza Virus Types A,B Antigen (test code = 88006-7) NEGATIVE NEGATIVE [facility]er[facility] or plasma creatine kinase measurement (enzymatic activity/volume)2019-11-04 18:56:00* Test Item Value Reference Range Interpretation Comments Creatine Kinase (test code = 2157-6) 73 29-168 [facility]er[facility] or plasma creatine kinase MB measurement (mass/volume)2019-11-04 18:56:00* Test Item Value Reference Range Interpretation Comments Creatine Kinase MB (test code = 25848-9) 1.90 0-5.0 [facility] HospitalTroponin I measurement by highly sensitive enzyme qbsrumdurtx9925-40-12 18:56:00* Test Item Value Reference Range Interpretation Comments Troponin I (test code = 98824-7) 0.013 0-0.300 [facility]er[facility] or plasma amylase measurement (enzymatic activity/volume)2019-11-04 18:56:00* Test Item Value Reference Range Interpretation Comments Amylase Level (test code = 1798-8) 72 25-125 [facility]er[facility] or plasma lipase measurement (enzymatic activity/volume)2019-11-04 18:56:00* Test Item Value Reference Range Interpretation Comments Lipase (test code = 3040-3) 15 8-78 [facility] HospitalFluoroscopic procedure less than one hour nuqshvgx3897-58-59 18:56:00* Test Item Value Reference Range Interpretation Comments Coronavirus (PCR) (test code = Coronavirus (PCR)) NOT DETECTED NOTD ETECTED SARS-COV2/RT-PCRNegative results do not preclude SARS-CoV-2 infection and should not be used as the sole basis for patient management decisions. Negative results must be combined with clinical observations, patient history, and epidemiologi martita information. A false negative result may occur if a specimen is improperly c ollected, transported or handled.The limit of detection for this assay is 250 co pies/mLThe SARS-CoV-2 test is a rapid, real-time RT-PCR test intended for the qu alitative detection of nucleic acid from SARS-CoV-2 in nasopharyngeal swab speci men collected from individuals suspected of COVID-19 by their healthcare provide r. This test has not been Food and Drug Administration (FDA) cleared or approved and has been authorized by FDA under an Emergency Use Authorization (EUA). This EUA will be effective until the declaration that circumstances exist justifying the authorization of the emergency use of in vitro diagnostic test for detection and or diagnosis of COVID-19 is terminated under section 564(b) of the Act, or the the EUA is revoked under 564(g) of the ACT.Testing performed by [facility], [place] [address]RBZC[facility] Emergency Hospitaltreptococcus pyogenes antigen detection in throat 2019-11-04 18:56:00* Test Item Value Reference Range Interpretation Comments Group A Streptococcus Screen (test code = 59717-4) NEGATIVE NEG ATIVE [facility] HospitalBlood pqoeqvq8674-88-13 18:56:00* Test Item Value Reference Range Interpretation Comments Blood Culture (test code = 32169299) Growth detected. Culture wo rkup ordered. [facility] HospitalBacterial blood qrxzzob0730-30-92 18:56:00* Test Item Value Reference Range Interpretation Comments Blood Culture (test code = 600-7) ESCHERICHIA COLI [facility] HospitalUS SOFT TISSUE NECK/TGPD4136-84-12 14:41:00 [address] [address] Patient Name: BRISEIDA LEON MR #: [id number] : 1930 Age/Sex: 88/F Req #: [id number] Adm Physician: Ordered by: SPARKS ANDREW DO Report #: [id number] Location: Room/Bed: Procedure: [id number] US/US SOFT TISSUE NECK/HEAD Exam Date: 06/02/19 Exam Time: 1412 REPORT STATUS: Signed Soft tissue neck ultrasound Clinical indications: Mass right side of neck Comparison: None Technique/findings: Grayscale and color Doppler ultrasound of the patient's neck was performed. Images were obtained with a 12 MHz linear transducer. No soft tissue abnormalities are identified on the provided u ltrasound images. A benign-appearing lymph node is identified in the right nec k which contains normal fatty hilum. Impression: No soft tissue abnorma lity seen on the provided ultrasound images of the neck. If there is high clin ical concern for a soft tissue abnormality which was not imaged on this examin ation recommend contrast enhanced CT of the neck. Signed by: King bain MD on 06/02/2019 2:45 PM Dictated By: KING ALVARADO MD [facility] Signed By: KING ALVARADO MD on 06/02/19 1445 Transcribed By: OSVALDO on 06/02/195 COPY TO: WAN SPARKS DO CHEST 2 YELXF4697-45-82 13:46:00 [address] [place] [address] Patient Name: BRISEIDA LEON MR #: [id number] : 1930 Age/Sex: 88/F Req #: [id number] Adm Physician: Ordered by: WALKER LIPSCOMB DO Report #: [id number] Location: ER Room/Bed: Procedure: [id number] DX /CHEST 2 VIEWS Exam Date: 05/31/19 Exam Time: 1326 REPORT STATUS: Signed EXAMINATION: CHEST 2 VIEWS INDICATION: Cough, shortness of breath cough 20 [id number] COMPARISON: Chest x-ray 12/01/2018 FINDINGS: PA an d lateral views TUBES and LINES: None. LUNGS: Diffuse hyperinflation . There is no evidence of pneumonia or pulmonary edema. Stable calcified gran uloma in the right upper lobe. PLEURA: No pleural effusion or pneumothorax . Stable biapical pleural-parenchymal thickening. HEART AND MEDIASTINUM: Stable calcifications of the mitral valve. Diffuse coronary artery calcifica tions. Stable mild cardiomegaly. Stable calcified lymph nodes. BONES AND SOFT TISSUES: Stable compression fracture of T12. No focal osseous lesions. Soft tissues are unremarkable. UPPER ABDOMEN: Unremarkable. IMPRESS ION: Stable pulmonary hyperinflation and cardiomegaly. No acute cardiopulm onary process. Signed by: Dr. Eyad Russell MD on 05/31/2019 1:53 PM Dictated By: EYAD RUSSELL MD 4523 Transcribed By: OSVALDO on 05/31/19 1359 CO PY TO: WALKER LIPSCOMB DO HEMOGLOBIN [id number] 21:50:00* Test Item Value Reference Range Interpretation Comments HEMOGLOBIN A1C (BEAKER) (test code = 368) 5.7 % 4.3-6.1 CBC W/PLT COUNT & AUTO [id number] 19:53:00* Test Item Value Reference Range Interpretation Comments WHITE BLOOD CELL COUNT (BEAKER) (test code = 775) 6.0 K/ L 3.5- 10.5 RED BLOOD CELL COUNT (BEAKER) (test code = 761) 4.40 M/ L 3.93-5 .22 HEMOGLOBIN (BEAKER) (test code = 410) 12.9 GM/DL 11.2-15.7 HEMATOCRIT (BEAKER) (test code = 411) 39.7 % 34.1-44.9 MEAN CORPUSCULAR VOLUME (BEAKER) (test code = 753) 90.2 fL 79. 4-94.8 MEAN CORPUSCULAR HEMOGLOBIN (BEAKER) (test code = 751) 29.3 pg 25.6-32.2 MEAN CORPUSCULAR HEMOGLOBIN CONC (BEAKER) (test code = 752) 32.5 GM/DL 32.2-35.5 RED CELL DISTRIBUTION WIDTH (BEAKER) (test code = 412) 13.4 % 11.7-14.4 PLATELET COUNT (BEAKER) (test code = 756) 301 K/CU MM 150-450 MEAN PLATELET VOLUME (BEAKER) (test code = 754) 9.6 fL 9.4-12 .3 NUCLEATED RED BLOOD CELLS (BEAKER) (test code = 413) 0 /100 WBC 0 -0 NEUTROPHILS RELATIVE PERCENT (BEAKER) (test code = 429) 55 % LYMPHOCYTES RELATIVE PERCENT (BEAKER) (test code = 430) 37 % MONOCYTES RELATIVE PERCENT (BEAKER) (test code = 431) 6 % EOSINOPHILS RELATIVE PERCENT (BEAKER) (test code = 432) 2 % BASOPHILS RELATIVE PERCENT (BEAKER) (test code = 437) 0 % NEUTROPHILS ABSOLUTE COUNT (BEAKER) (test code = 670) 3.29 K/ L 1.56-6.13 LYMPHOCYTES ABSOLUTE COUNT (BEAKER) (test code = 414) 2.20 K/ L 1.18-3.74 MONOCYTES ABSOLUTE COUNT (BEAKER) (test code = 415) 0.38 K/ L 0. 24-0.36 H EOSINOPHILS ABSOLUTE COUNT (BEAKER) (test code = 416) 0.12 K/ L 0.04-0.36 BASOPHILS ABSOLUTE COUNT (BEAKER) (test code = 417) 0.02 K/ L 0. 01-0.08 IMMATURE GRANULOCYTES-RELATIVE PERCENT (BEAKER) (test code = 2801) 0 % 0-1 VITAMIN D, 61-IMWRKWS6347-71-17 19:40:00* Test Item Value Reference Range Interpretation Comments VITAMIN D 25-OH (BEAKER) (test code = 2764) 14.6 ng/mL 6.6-49.9 Effective 04/11/2017: Reference Range ChangeNew: 6.6-49.9 ng/mL Previous: 13.0 -47.8 ng/mLRecommended Vitamin D Target Range: 30.0-40.0 ng/mLVITAMIN B12 2018-12-16 19:38:00* Test Item Value Reference Range Interpretation Comments VITAMIN B12 (BEAKER) (test code = 774) 183 pg/mL 213-816 L TSH/FREE T4 IF [id number] 19:38:00* Test Item Value Reference Range Interpretation Comments THYROID STIMULATING HORMONE (BEAKER) (test code = 772) 1.65 uIU/mL 0.35-4.94 COMPREHENSIVE METABOLIC QGXGJ3124-76-06 19:16:00* Test Item Value Reference Range Interpretation Comments TOTAL PROTEIN (BEAKER) (test code = 770) 7.5 gm/dL 6.0-8.3 ALBUMIN (BEAKER) (test code = 1145) 3.9 g/dL 3.5-5.0 ALKALINE PHOSPHATASE (BEAKER) (test code = 346) 102 U/L 40-150 BILIRUBIN TOTAL (BEAKER) (test code = 377) 0.5 mg/dL 0.2-1.2 SODIUM (BEAKER) (test code = 381) 141 meq/L 136-145 POTASSIUM (BEAKER) (test code = 379) 4.3 meq/L 3.5-5.1 CHLORIDE (BEAKER) (test code = 382) 106 meq/L 98-107 CO2 (BEAKER) (test code = 355) 24 meq/L 22-29 BLOOD UREA NITROGEN (BEAKER) (test code = 354) 15 mg/dL 7-21 CREATININE (BEAKER) (test code = 358) 0.81 mg/dL 0.57-1.25 GLUCOSE RANDOM (BEAKER) (test code = 652) 130 mg/dL 70-105 H CALCIUM (BEAKER) (test code = 697) 10.1 mg/dL 8.4-10.2 AST (SGOT) (BEAKER) (test code = 353) 19 U/L 5-34 ALT (SGPT) (BEAKER) (test code = 347) 38 U/L 6-55 EGFR (BEAKER) (test code = 1092) 67 mL/min/1.73 sq m ESTIMATED GFR IS NOT ACCURATE CREATININE CLEARANCE IN PREDICTING GLOMERULAR FILTRATION RATE. ESTIMATED GFR IS NOT APPLICABLE FOR DIALYSIS PATIENTS. CHEST 2 [id number] 02:27:00 [place] [address] Patient Name: BRISEIDA LEON MR #: [id number] : 1930 Age/Sex: 88/F Req #: [id number] Adm Physician: Ordered by: DEBBIE LARKIN MD Report #: [id number] Location: ER Room/Bed: Procedure: [id number] DX/ CHEST 2 VIEWS Exam Date: 12/01/18 Exam Time: 0 REPORT STATUS: Signed EXAMINATION: CHEST 2 VIEWS INDICATION: Fever FEVER [id number] Y COMPARISON: Chest x-ray 11/27/2018 FINDINGS: PA [...] described ab ove. Signed by: Dr. Eyad Russell MD on 12/01/2018 2:32 AM Dic tated By: EYAD RUSSELL MD 1 COPY TO: DEBBIE LARKIN MD Urine [id number] 02:17:00* Test Item Value Reference Range Interpretation Comments Urine WBC (test code = 5821-4) 0-5 0-5 [facility] [id number] 02:17:00* Test Item Value Reference Range Interpretation Comments Urine RBC (test code = 72095-5) 0-5 0-5 [facility] Qnxyuthv5987-25-58 02:17:00* Test Item Value Reference Range Interpretation Comments Urine Bacteria (test code = 72593-0) FEW NONE [facility] Epithelial Obhmy2248-06-08 02:17:00 * Test Item Value Reference Range Interpretation Comments Urine Epithelial Cells (test code = 12115-7) FEW NONE [facility] [id number] 02:17:00* Test Item Value Reference Range Interpretation Comments Urine WBC (test code = 5821-4) 0-5 0-5 [facility] [id number] 02:17:00* Test Item Value Reference Range Interpretation Comments Urine RBC (test code = 05091-9) 0-5 0-5 [facility] Qqknsxng6133-94-66 02:17:00* Test Item Value Reference Range Interpretation Comments Urine Bacteria (test code = 90465-2) FEW NONE [facility] Epithelial Hoqwx5774-35-06 02:17:00 * Test Item Value Reference Range Interpretation Comments Urine Epithelial Cells (test code = 80825-7) FEW NONE [facility] Bhqow3611-48-23 02:02:00* Test Item Value Reference Range Interpretation Comments Urine Color (test code = 5778-6) YELLOW YELLOW [facility] Ikidseh0929-18-83 02:02:00* Test Item Value Reference Range Interpretation Comments Urine Clarity (test code = 64088-2) CLOUDY CLEAR H [facility] Specific Enhccvi9082-00-78 02:02:00 * Test Item Value Reference Range Interpretation Comments Urine Specific Lorena (test code = 5811-5) 1.020 1.010-1.02 5 [facility] oE4555-81-63 02:02:00* Test Item Value Reference Range Interpretation Comments Urine pH (test code = 80964-4) 6 5-7 [facility] Leukocyte Qqknnoic9573-88-03 02:02:00* Test Item Value Reference Range Interpretation Comments Urine Leukocyte Esterase (test code = 51597-0) NEGATIVE NEGATIV E [facility] Cqaytyg8554-73-69 02:02:00* Test Item Value Reference Range Interpretation Comments Urine Nitrite (test code = 09167-1) NEGATIVE NEGATIVE [facility] Azvgkwm6692-24-88 02:02:00* Test Item Value Reference Range Interpretation Comments Urine Protein (test code = 97909-1) NEGATIVE NEGATIVE [facility] Glucose (UA)2018-12-01 02:02:00* Test Item Value Reference Range Interpretation Comments Urine Glucose (UA) (test code = 00267-1) NEGATIVE NEGATIVE [facility] Nfkizgv3391-77-42 02:02:00* Test Item Value Reference Range Interpretation Comments Urine Ketones (test code = 96690-7) NEGATIVE NEGATIVE [facility] Whqatlyrolzu3974-72-54 02:02:00* Test Item Value Reference Range Interpretation Comments Urine Urobilinogen (test code = 02417-9) 0.2 0.2-1 [facility] Cbthoybsw6775-52-61 02:02:00* Test Item Value Reference Range Interpretation Comments Urine Bilirubin (test code = 1977-8) NEGATIVE NEGATIVE [facility] Lpkbs7048-54-50 02:02:00* Test Item Value Reference Range Interpretation Comments Urine Blood (test code = 25582-6) NEGATIVE NEGATIVE [facility] Rpetk2415-55-67 02:02:00* Test Item Value Reference Range Interpretation Comments Urine Color (test code = 5778-6) YELLOW YELLOW [facility] Zekukiu1331-14-39 02:02:00* Test Item Value Reference Range Interpretation Comments Urine Clarity (test code = 38937-0) CLOUDY CLEAR H [facility] Specific Xtxiigw8013-38-45 02:02:00 * Test Item Value Reference Range Interpretation Comments Urine Specific Lorena (test code = 5811-5) 1.020 1.010-1.02 5 [facility] [id number] 02:02:00* Test Item Value Reference Range Interpretation Comments Urine pH (test code = 58798-6) 6 5-7 [facility] Leukocyte Hluxrgpz6959-09-69 02:02:00* Test Item Value Reference Range Interpretation Comments Urine Leukocyte Esterase (test code = 90008-5) NEGATIVE NEGATIV E [facility] Vnbsckg1783-17-79 02:02:00* Test Item Value Reference Range Interpretation Comments Urine Nitrite (test code = 79897-1) NEGATIVE NEGATIVE [facility] Twnvlzj7369-15-54 02:02:00* Test Item Value Reference Range Interpretation Comments Urine Protein (test code = 95286-4) NEGATIVE NEGATIVE [facility] Glucose (UA)2018-12-01 02:02:00* Test Item Value Reference Range Interpretation Comments Urine Glucose (UA) (test code = 00798-2) NEGATIVE NEGATIVE [facility] Ymakppm4065-75-23 02:02:00* Test Item Value Reference Range Interpretation Comments Urine Ketones (test code = 14343-1) NEGATIVE NEGATIVE [facility] Xbdyeklffevy9759-43-87 02:02:00* Test Item Value Reference Range Interpretation Comments Urine Urobilinogen (test code = 13560-1) 0.2 0.2-1 [facility] Rstpmwoqj3380-22-15 02:02:00* Test Item Value Reference Range Interpretation Comments Urine Bilirubin (test code = 1977-8) NEGATIVE NEGATIVE [facility] Liwnk2124-79-71 02:02:00* Test Item Value Reference Range Interpretation Comments Urine Blood (test code = 97503-9) NEGATIVE NEGATIVE [facility] HospitalCreatine Kinase PW0241-05-57 12:39:00* Test Item Value Reference Range Interpretation Comments Creatine Kinase MB (test code = 61993-3) 0.50 0-5.0 [facility] HospitalTroponin R5116-74-11 12:39:00* Test Item Value Reference Range Interpretation Comments Troponin I (test code = NSC0184) < 0.001 0-0.300 [facility] HospitalCreatine Kinase YW6531-28-07 12:39:00* Test Item Value Reference Range Interpretation Comments Creatine Kinase MB (test code = 81333-1) 0.50 0-5.0 [facility] HospitalTroponin I7034-45-66 12:39:00* Test Item Value Reference Range Interpretation Comments Troponin I (test code = FLS6134) < 0.001 0-0.300 [facility] HospitalCreatine Ydlcmb5179-42-37 12:28:00* Test Item Value Reference Range Interpretation Comments Creatine Kinase (test code = 2157-6) 22 29-168 L [facility] HospitalCreatine Snaxky2550-69-07 12:28:00* Test Item Value Reference Range Interpretation Comments Creatine Kinase (test code = 2157-6) 22 29-168 L [facility] HospitalCreatine Mraebe7778-56-35 12:28:00* Test Item Value Reference Range Interpretation Comments Creatine Kinase (test code = 2157-6) 22 29-168 L [facility] HospitalCreatine Kinase JG4105-97-43 04:57:00* Test Item Value Reference Range Interpretation Comments Creatine Kinase MB (test code = 80785-5) 0.40 0-5.0 [facility] HospitalTroponin [id number] 04:57:00* Test Item Value Reference Range Interpretation Comments Troponin I (test code = HBR7924) 0.015 0-0.300 [facility] HospitalTriglycerides Dvcag7135-82-97 04:42:00* Test Item Value Reference Range Interpretation Comments Triglycerides Level (test code = 2571-8) 97 0-149 [facility] HospitalCholesterol Ysxop5474-68-69 04:42:00* Test Item Value Reference Range Interpretation Comments Cholesterol Level (test code = 2093-3) 173 0-199 Less than 200 mg/dL Low Znzq589 - 239 mg/dL Borderline Yoom298 m g/dl and greater High Risk [facility] HospitalLDL Evaeunjuyiw2747-35-77 04:42:00* Test Item Value Reference Range Interpretation Comments LDL Cholesterol (test code = 2089-1) 100 60-130 [facility] HospitalHDL Gjrpkbvhcol5451-25-33 04:42:00* Test Item Value Reference Range Interpretation Comments HDL Cholesterol (test code = 2085-9) 54 40-60 [facility] HospitalCholesterol/HDL Rgdrq1588-72-90 04:42:00 * Test Item Value Reference Range Interpretation Comments Cholesterol/HDL Ratio (test code = 9830-1) 3.2 3.0-3.6 [facility] HospitalTriglycerides Vmfou4172-69-07 04:42:00* Test Item Value Reference Range Interpretation Comments Triglycerides Level (test code = 2571-8) 97 0-149 [facility] HospitalCholesterol Fuzxe2519-18-21 04:42:00* Test Item Value Reference Range Interpretation Comments Cholesterol Level (test code = 2093-3) 173 0-199 Less than 200 mg/dL Low Xtkn234 - 239 mg/dL Borderline Pkfb006 m g/dl and greater High Risk [facility] HospitalLDL Xagvyiztvki0380-59-39 04:42:00* Test Item Value Reference Range Interpretation Comments LDL Cholesterol (test code = 2089-1) 100 60-130 [facility] Cvantihsgkd1909-29-85 04:42:00* Test Item Value Reference Range Interpretation Comments HDL Cholesterol (test code = 2085-9) 54 40-60 [facility] HospitalCholesterol/HDL Bgyad5887-23-48 04:42:00 * Test Item Value Reference Range Interpretation Comments Cholesterol/HDL Ratio (test code = 9830-1) 3.2 3.0-3.6 [facility] HospitalTriglycerides Cdcnd1047-68-45 04:42:00* Test Item Value Reference Range Interpretation Comments Triglycerides Level (test code = 2571-8) 97 0-149 [facility] HospitalCholesterol Phqkl4453-22-52 04:42:00* Test Item Value Reference Range Interpretation Comments Cholesterol Level (test code = 2093-3) 173 0-199 Less than 200 mg/dL Low Tjkp602 - 239 mg/dL Borderline Nruv915 m g/dl and greater High Risk [facility] HospitalLDL Bnsdtrzgvvv3485-80-39 04:42:00* Test Item Value Reference Range Interpretation Comments LDL Cholesterol (test code = 2089-1) 100 60-130 [facility] Dvoinnbbiej4771-73-97 04:42:00* Test Item Value Reference Range Interpretation Comments HDL Cholesterol (test code = 2085-9) 54 40-60 [facility] HospitalCholesterol/HDL Hzujv9754-31-45 04:42:00 * Test Item Value Reference Range Interpretation Comments Cholesterol/HDL Ratio (test code = 9830-1) 3.2 3.0-3.6 [facility] Egdnc1249-04-11 17:12:00* Test Item Value Reference Range Interpretation Comments Sodium Level (test code = 2951-2) 140 136-145 [facility] HospitalPotassium Nrgwk0672-03-61 17:12:00* Test Item Value Reference Range Interpretation Comments Potassium Level (test code = 2823-3) 3.9 3.5-5.1 [facility] HospitalChloride Uhmnt1082-41-55 17:12:00* Test Item Value Reference Range Interpretation Comments Chloride Level (test code = 2075-0) 105 98-107 [facility] HospitalCarbon Dioxide Ugnxq0836-91-32 17:12:00* Test Item Value Reference Range Interpretation Comments Carbon Dioxide Level (test code = 2028-9) 23 22-29 [facility] HospitalAnion Ehy1027-94-97 17:12:00* Test Item Value Reference Range Interpretation Comments Anion Gap (test code = 94387-0) 15.9 8-16 [facility] HospitalBlood Urea Npzggqhv8611-59-92 17:12:00* Test Item Value Reference Range Interpretation Comments Blood Urea Nitrogen (test code = 3094-0) 15 7-26 [facility] HospitalCreatinine2019-05-29 17:12:00* Test Item Value Reference Range Interpretation Comments Creatinine (test code = 2160-0) 1.02 0.57-1.11 [facility] HospitalBUN/Creatinine Azhgi8698-50-18 17:12:00* Test Item Value Reference Range Interpretation Comments BUN/Creatinine Ratio (test code = 3097-3) 15 6-25 [facility] HospitalEstimat Glomerular Filtration Rate 2018-11-27 17:12:00* Test Item Value Reference Range Interpretation Comments Estimat Glomerular Filtration Rate (test code = 528903371) 51 >60 L Ranges were taken from the National Kidney Disease Education Program and the [facility] [employer] [employer] literature.Reference ranges:60 or greater: Ylsmej93-70 ( for 3 consecutive months): Chronic kidney disease 15 or less: Kidney failureUT Health East Texas Carth[facility] HospitalGlucose Ebimv9445-30-82 17:12:00* Test Item Value Reference Range Interpretation Comments Glucose Level (test code = SEA0204) 184 74-118 H [facility] HospitalCalcium Atndf7538-76-33 17:12:00* Test Item Value Reference Range Interpretation Comments Calcium Level (test code = 63823-8) 9.9 8.4-10.2 [facility] HospitalTotal Mqzajpnid0238-98-14 17:12:00* Test Item Value Reference Range Interpretation Comments Total Bilirubin (test code = 1975-2) 1.0 0.2-1.2 [facility] HospitalAspartate Amino Transf (AST/SGOT) 2018-11-27 17:12:00* Test Item Value Reference Range Interpretation Comments Aspartate Amino Transf (AST/SGOT) (test code = Aspartate Amino Transf (AST/SGOT)) 118 5-34 H [facility] HospitalAlanine Aminotransferase (ALT/SGPT) 2018-11-27 17:12:00* Test Item Value Reference Range Interpretation Comments Alanine Aminotransferase (ALT/SGPT) (test code = 1742-6) 43 0-55 [facility] HospitalTotal Clehrti5584-34-74 17:12:00* Test Item Value Reference Range Interpretation Comments Total Protein (test code = 2885-2) 6.7 6.5-8.1 [facility] HospitalAlbumin2019-05-29 17:12:00* Test Item Value Reference Range Interpretation Comments Albumin (test code = 1751-7) 3.5 3.5-5.0 [facility] HospitalGlobulin2019-05-29 17:12:00* Test Item Value Reference Range Interpretation Comments Globulin (test code = 32925-8) 3.2 2.3-3.5 [facility] HospitalAlbumin/Globulin Rrfsr0221-37-70 17:12:00 * Test Item Value Reference Range Interpretation Comments Albumin/Globulin Ratio (test code = 1759-0) 1.1 0.8-2.0 [facility] HospitalAlkaline Wywxjjxztsx1562-33-07 17:12:00* Test Item Value Reference Range Interpretation Comments Alkaline Phosphatase (test code = 6768-6) 121 40-150 [facility]odium Mvpkf1288-29-10 17:12:00* Test Item Value Reference Range Interpretation Comments Sodium Level (test code = 2951-2) 140 136-145 [facility] HospitalPotassium Qgiem5146-45-88 17:12:00* Test Item Value Reference Range Interpretation Comments Potassium Level (test code = 2823-3) 3.9 3.5-5.1 [facility] HospitalChloride Rpgbb5626-59-87 17:12:00* Test Item Value Reference Range Interpretation Comments Chloride Level (test code = 2075-0) 105 98-107 [facility] HospitalCarbon Dioxide Tcwtn9972-09-11 17:12:00* Test Item Value Reference Range Interpretation Comments Carbon Dioxide Level (test code = 2028-9) 23 22-29 [facility] HospitalAnion Hhg4686-55-40 17:12:00* Test Item Value Reference Range Interpretation Comments Anion Gap (test code = 51256-5) 15.9 8-16 [facility] HospitalBlood Urea Kbetbrkh0392-55-96 17:12:00* Test Item Value Reference Range Interpretation Comments Blood Urea Nitrogen (test code = 3094-0) 15 7-26 [facility] HospitalCreatinine2019-05-29 17:12:00* Test Item Value Reference Range Interpretation Comments Creatinine (test code = 2160-0) 1.02 0.57-1.11 [facility] HospitalBUN/Creatinine Glzhe4724-77-58 17:12:00* Test Item Value Reference Range Interpretation Comments BUN/Creatinine Ratio (test code = 3097-3) 15 6-25 [facility] HospitalEstimat Glomerular Filtration Rate 2018-11-27 17:12:00* Test Item Value Reference Range Interpretation Comments Estimat Glomerular Filtration Rate (test code = 918122510) 51 >60 L Ranges were taken from the National Kidney Disease Education Program and the [employer] [facility] [employer] literature.Reference ranges:60 or greater: Qxerqv83-75 ( for 3 consecutive months): Chronic kidney disease 15 or less: Kidney failureUT Health East Texas Carth[facility] HospitalGlucose Ettkn9650-93-82 17:12:00* Test Item Value Reference Range Interpretation Comments Glucose Level (test code = TZP4860) 184 74-118 H [facility] HospitalCalcium Obsho7441-98-97 17:12:00* Test Item Value Reference Range Interpretation Comments Calcium Level (test code = 34985-4) 9.9 8.4-10.2 [facility] HospitalTotal Tytauargu0051-38-94 17:12:00* Test Item Value Reference Range Interpretation Comments Total Bilirubin (test code = 1975-2) 1.0 0.2-1.2 [facility] HospitalAspartate Amino Transf (AST/SGOT) 2018-11-27 17:12:00* Test Item Value Reference Range Interpretation Comments Aspartate Amino Transf (AST/SGOT) (test code = Aspartate Amino Transf (AST/SGOT)) 118 5-34 H [facility] HospitalAlanine Aminotransferase (ALT/SGPT) 2018-11-27 17:12:00* Test Item Value Reference Range Interpretation Comments Alanine Aminotransferase (ALT/SGPT) (test code = 1742-6) 43 0-55 [facility] HospitalTotal Tebiubb4659-33-74 17:12:00* Test Item Value Reference Range Interpretation Comments Total Protein (test code = 2885-2) 6.7 6.5-8.1 [facility] HospitalAlbumin2019-05-29 17:12:00* Test Item Value Reference Range Interpretation Comments Albumin (test code = 1751-7) 3.5 3.5-5.0 [facility] HospitalGlobulin2019-05-29 17:12:00* Test Item Value Reference Range Interpretation Comments Globulin (test code = 37268-6) 3.2 2.3-3.5 [facility] HospitalAlbumin/Globulin Bgkjb2595-44-86 17:12:00 * Test Item Value Reference Range Interpretation Comments Albumin/Globulin Ratio (test code = 1759-0) 1.1 0.8-2.0 [facility] HospitalAlkaline Gvhpstmnmyi1895-91-91 17:12:00* Test Item Value Reference Range Interpretation Comments Alkaline Phosphatase (test code = 6768-6) 121 40-150 [facility]odium Ndsvc8603-84-87 17:12:00* Test Item Value Reference Range Interpretation Comments Sodium Level (test code = 2951-2) 140 136-145 [facility] HospitalPotassium Fujzd5987-72-06 17:12:00* Test Item Value Reference Range Interpretation Comments Potassium Level (test code = 2823-3) 3.9 3.5-5.1 [facility] HospitalChloride Qdohl7870-67-05 17:12:00* Test Item Value Reference Range Interpretation Comments Chloride Level (test code = 2075-0) 105 98-107 [facility] HospitalCarbon Dioxide Wibho9130-34-44 17:12:00* Test Item Value Reference Range Interpretation Comments Carbon Dioxide Level (test code = 2028-9) 23 22-29 [facility] HospitalAnion Frq7565-11-29 17:12:00* Test Item Value Reference Range Interpretation Comments Anion Gap (test code = 68866-2) 15.9 8-16 [facility] HospitalBlood Urea Caimtves9539-59-79 17:12:00* Test Item Value Reference Range Interpretation Comments Blood Urea Nitrogen (test code = 3094-0) 15 7-26 [facility] HospitalCreatinine2019-05-29 17:12:00* Test Item Value Reference Range Interpretation Comments Creatinine (test code = 2160-0) 1.02 0.57-1.11 [facility] HospitalBUN/Creatinine Atyha4517-35-65 17:12:00* Test Item Value Reference Range Interpretation Comments BUN/Creatinine Ratio (test code = 3097-3) 15 6-25 [facility] HospitalEstimat Glomerular Filtration Rate 2018-11-27 17:12:00* Test Item Value Reference Range Interpretation Comments Estimat Glomerular Filtration Rate (test code = 838923242) 51 >60 L Ranges were taken from the National Kidney Disease Education Program and the [facility] literature.Reference ranges:60 or greater: Jxofij65-95 ( for 3 consecutive months): Chronic kidney disease 15 or less: Kidney failureUT Health East Texas Carth[facility] HospitalGlucose Gesuq6482-06-41 17:12:00* Test Item Value Reference Range Interpretation Comments Glucose Level (test code = JUY6074) 184 74-118 [facility] [place] [facility] HospitalCalcium Wqyrm5069-32-50 17:12:00* Test Item Value Reference Range Interpretation Comments Calcium Level (test code = 00790-9) 9.9 8.4-10.2 [facility] HospitalTotal Tzixltzdp6882-94-54 17:12:00* Test Item Value Reference Range Interpretation Comments Total Bilirubin (test code = 1975-2) 1.0 0.2-1.2 [facility] HospitalAspartate Amino Transf (AST/SGOT) 2018-11-27 17:12:00* Test Item Value Reference Range Interpretation Comments Aspartate Amino Transf (AST/SGOT) (test code = Aspartate Amino Transf (AST/SGOT)) 118 5-34 H [facility] HospitalAlanine Aminotransferase (ALT/SGPT) 2018-11-27 17:12:00* Test Item Value Reference Range Interpretation Comments Alanine Aminotransferase (ALT/SGPT) (test code = 1742-6) 43 0-55 [facility] Ghheptb7015-42-83 17:12:00* Test Item Value Reference Range Interpretation Comments Total Protein (test code = 2885-2) 6.7 6.5-8.1 [facility] [place] [facility] HospitalAlbumin2019-05-29 17:12:00* Test Item Value Reference Range Interpretation Comments Albumin (test code = 1751-7) 3.5 3.5-5.0 [facility] [place] [facility] HospitalGlobulin2019-05-29 17:12:00* Test Item Value Reference Range Interpretation Comments Globulin (test code = 89498-5) 3.2 2.3-3.5 [facility] HospitalAlbumin/Globulin Bomwu0962-34-90 17:12:00 * Test Item Value Reference Range Interpretation Comments Albumin/Globulin Ratio (test code = 1759-0) 1.1 0.8-2.0 [facility] [place] [facility] HospitalAlkaline Tbvuvwjnugt7559-41-19 17:12:00* Test Item Value Reference Range Interpretation Comments Alkaline Phosphatase (test code = 6768-6) 121 40-150 [facility] HospitalWhite Blood Tkoku2848-95-46 16:54:00* Test Item Value Reference Range Interpretation Comments White Blood Count (test code = 6690-2) 7.72 4.8-10.8 [facility] [place] [facility] HospitalRed Blood Khsvb3425-46-49 16:54:00* Test Item Value Reference Range Interpretation Comments Red Blood Count (test code = 789-8) 4.12 3.6-5.1 [facility] [place] [facility] HospitalHemoglobin2019-05-29 16:54:00* Test Item Value Reference Range Interpretation Comments Hemoglobin (test code = 63014-9) 12.3 12.0-16.0 [facility] [place] [facility] HospitalHematocrit2019-05-29 16:54:00* Test Item Value Reference Range Interpretation Comments Hematocrit (test code = 4544-3) 35.4 34.2-44.1 [facility] HospitalMean Corpuscular Nzbpsx1404-67-89 16:54:00* Test Item Value Reference Range Interpretation Comments Mean Corpuscular Volume (test code = 787-2) 85.9 81-99 [facility] HospitalMean Corpuscular Aiuymadrzp5656-77-57 16:54:00* Test Item Value Reference Range Interpretation Comments Mean Corpuscular Hemoglobin (test code = 785-6) 29.9 28-32 [facility] HospitalMean Corpuscular Hemoglobin Concent 2018-11-27 16:54:00* Test Item Value Reference Range Interpretation Comments Mean Corpuscular Hemoglobin Concent (test code = 786-4) 34.7 31-35 [facility] [place] [facility] HospitalRed Cell Distribution Lrltm1372-45-36 16:54:00* Test Item Value Reference Range Interpretation Comments Red Cell Distribution Width (test code = 79570-2) 13.5 11.7 -14.4 [facility] [place] [facility] HospitalPlatelet Hmdfd2126-58-91 16:54:00* Test Item Value Reference Range Interpretation Comments Platelet Count (test code = 777-3) 238 140-360 [facility] HospitalNeutrophils (%) (Auto)2018-11-27 16:54:00 * Test Item Value Reference Range Interpretation Comments Neutrophils (%) (Auto) (test code = 15933-9) 70.8 38.7-80.0 [facility] [place] [facility] HospitalLymphocytes (%) (Auto)2018-11-27 16:54:00 * Test Item Value Reference Range Interpretation Comments Lymphocytes (%) (Auto) (test code = 736-9) 22.2 18.0-39.1 [facility] [place] [facility] HospitalMonocytes (%) (Auto)2018-11-27 16:54:00* Test Item Value Reference Range Interpretation Comments Monocytes (%) (Auto) (test code = 5905-5) 5.4 4.4-11.3 [facility] [place] [facility] HospitalEosinophils (%) (Auto)2018-11-27 16:54:00 * Test Item Value Reference Range Interpretation Comments Eosinophils (%) (Auto) (test code = 713-8) 1.0 0.0-6.0 [facility] [place] [facility] HospitalBasophils (%) (Auto)2018-11-27 16:54:00* Test Item Value Reference Range Interpretation Comments Basophils (%) (Auto) (test code = 706-2) 0.3 0.0-1.0 [facility] [place] [facility] HospitalIM GRANULOCYTES %2018-11-27 16:54:00* Test Item Value Reference Range Interpretation Comments IM GRANULOCYTES % (test code = IM GRANULOCYTES %) 0.3 0.0- 1.0 [facility] [place] [facility] HospitalNeutrophils # (Auto)2018-11-27 16:54:00* Test Item Value Reference Range Interpretation Comments Neutrophils # (Auto) (test code = 751-8) 5.5 2.1-6.9 [facility] [place] [facility] HospitalLymphocytes # (Auto)2018-11-27 16:54:00* Test Item Value Reference Range Interpretation Comments Lymphocytes # (Auto) (test code = 78814-3) 1.7 1.0-3.2 [facility] [place] [facility] HospitalMonocytes # (Auto)2018-11-27 16:54:00* Test Item Value Reference Range Interpretation Comments Monocytes # (Auto) (test code = 742-7) 0.4 0.2-0.8 [facility] [place] [facility] HospitalEosinophils # (Auto)2018-11-27 16:54:00* Test Item Value Reference Range Interpretation Comments Eosinophils # (Auto) (test code = 711-2) 0.1 0.0-0.4 [facility] [place] [facility] HospitalBasophils # (Auto)2018-11-27 16:54:00* Test Item Value Reference Range Interpretation Comments Basophils # (Auto) (test code = 704-7) 0.0 0.0-0.1 [facility] [place] [facility] HospitalAbsolute Immature Granulocyte (auto 2018-11-27 16:54:00* Test Item Value Reference Range Interpretation Comments Absolute Immature Granulocyte (auto (isidro t code = Absolute Immature Granulocyte (auto) 0.02 0-0.1 [facility] [place] [facility] HospitalWhite Blood Omakw7499-55-95 16:54:00* Test Item Value Reference Range Interpretation Comments White Blood Count (test code = 6690-2) 7.72 4.8-10.8 [facility] [place] [facility] HospitalRed Blood Mfubo8430-19-51 16:54:00* Test Item Value Reference Range Interpretation Comments Red Blood Count (test code = 789-8) 4.12 3.6-5.1 [facility] [place] [facility] HospitalHemoglobin2019-05-29 16:54:00* Test Item Value Reference Range Interpretation Comments Hemoglobin (test code = 06529-3) 12.3 12.0-16.0 [facility] [place] [facility] HospitalHematocrit2019-05-29 16:54:00* Test Item Value Reference Range Interpretation Comments Hematocrit (test code = 4544-3) 35.4 34.2-44.1 [facility] [place] [facility] HospitalMean Corpuscular Ciochh9565-46-25 16:54:00* Test Item Value Reference Range Interpretation Comments Mean Corpuscular Volume (test code = 787-2) 85.9 81-99 [facility] [place] [facility] HospitalMean Corpuscular Tgoijtbvgl2588-44-82 16:54:00* Test Item Value Reference Range Interpretation Comments Mean Corpuscular Hemoglobin (test code = 785-6) 29.9 28-32 [facility] [place] [facility] HospitalMean Corpuscular Hemoglobin Concent 2018-11-27 16:54:00* Test Item Value Reference Range Interpretation Comments Mean Corpuscular Hemoglobin Concent (test code = 786-4) 34.7 31-35 [facility] [place] [facility] HospitalRed Cell Distribution Ntrhy8405-28-46 16:54:00* Test Item Value Reference Range Interpretation Comments Red Cell Distribution Width (test code = 59252-5) 13.5 11.7 -14.4 [facility] [place] [facility] HospitalPlatelet Fhqda7917-71-85 16:54:00* Test Item Value Reference Range Interpretation Comments Platelet Count (test code = 777-3) 238 140-360 [facility] [place] [facility] HospitalNeutrophils (%) (Auto)2018-11-27 16:54:00 * Test Item Value Reference Range Interpretation Comments Neutrophils (%) (Auto) (test code = 36968-1) 70.8 38.7-80.0 [facility] [place] [facility] HospitalLymphocytes (%) (Auto)2018-11-27 16:54:00 * Test Item Value Reference Range Interpretation Comments Lymphocytes (%) (Auto) (test code = 736-9) 22.2 18.0-39.1 [facility] [place] [facility] HospitalMonocytes (%) (Auto)2018-11-27 16:54:00* Test Item Value Reference Range Interpretation Comments Monocytes (%) (Auto) (test code = 5905-5) 5.4 4.4-11.3 [facility] [place] [facility] HospitalEosinophils (%) (Auto)2018-11-27 16:54:00 * Test Item Value Reference Range Interpretation Comments Eosinophils (%) (Auto) (test code = 713-8) 1.0 0.0-6.0 [facility] [place] [facility] HospitalBasophils (%) (Auto)2018-11-27 16:54:00* Test Item Value Reference Range Interpretation Comments Basophils (%) (Auto) (test code = 706-2) 0.3 0.0-1.0 [facility] [place] [facility] HospitalIM GRANULOCYTES %2018-11-27 16:54:00* Test Item Value Reference Range Interpretation Comments IM GRANULOCYTES % (test code = IM GRANULOCYTES %) 0.3 0.0- 1.0 [facility] [place] [facility] HospitalNeutrophils # (Auto)2018-11-27 16:54:00* Test Item Value Reference Range Interpretation Comments Neutrophils # (Auto) (test code = 751-8) 5.5 2.1-6.9 [facility] [place] [facility] HospitalLymphocytes # (Auto)2018-11-27 16:54:00* Test Item Value Reference Range Interpretation Comments Lymphocytes # (Auto) (test code = 11496-7) 1.7 1.0-3.2 [facility] [place] [facility] HospitalMonocytes # (Auto)2018-11-27 16:54:00* Test Item Value Reference Range Interpretation Comments Monocytes # (Auto) (test code = 742-7) 0.4 0.2-0.8 [facility] [place] [facility] HospitalEosinophils # (Auto)2018-11-27 16:54:00* Test Item Value Reference Range Interpretation Comments Eosinophils # (Auto) (test code = 711-2) 0.1 0.0-0.4 [facility] [place] [facility] HospitalBasophils # (Auto)2018-11-27 16:54:00* Test Item Value Reference Range Interpretation Comments Basophils # (Auto) (test code = 704-7) 0.0 0.0-0.1 [facility] [place] [facility] HospitalAbsolute Immature Granulocyte (auto 2018-11-27 16:54:00* Test Item Value Reference Range Interpretation Comments Absolute Immature Granulocyte (auto (isidro t code = Absolute Immature Granulocyte (auto) 0.02 0-0.1 [facility] [place] [facility] HospitalWhite Blood Kvlzf8048-04-16 16:54:00* Test Item Value Reference Range Interpretation Comments White Blood Count (test code = 6690-2) 7.72 4.8-10.8 [facility] [place] [facility] HospitalRed Blood Vnqvp1447-95-78 16:54:00* Test Item Value Reference Range Interpretation Comments Red Blood Count (test code = 789-8) 4.12 3.6-5.1 [facility] [place] [facility] HospitalHemoglobin2019-05-29 16:54:00* Test Item Value Reference Range Interpretation Comments Hemoglobin (test code = 42784-9) 12.3 12.0-16.0 [facility] [place] [facility] HospitalHematocrit2019-05-29 16:54:00* Test Item Value Reference Range Interpretation Comments Hematocrit (test code = 4544-3) 35.4 34.2-44.1 [facility] [place] [facility] HospitalMean Corpuscular Dybvlt9651-25-02 16:54:00* Test Item Value Reference Range Interpretation Comments Mean Corpuscular Volume (test code = 787-2) 85.9 81-99 [facility] HospitalMean Corpuscular Baccjrhwms4553-92-11 16:54:00* Test Item Value Reference Range Interpretation Comments Mean Corpuscular Hemoglobin (test code = 785-6) 29.9 28-32 [facility] HospitalMean Corpuscular Hemoglobin Concent 2018-11-27 16:54:00* Test Item Value Reference Range Interpretation Comments Mean Corpuscular Hemoglobin Concent (test code = 786-4) 34.7 31-35 [facility] [place] [facility] HospitalRed Cell Distribution Tsxxs4827-37-18 16:54:00* Test Item Value Reference Range Interpretation Comments Red Cell Distribution Width (test code = 41435-0) 13.5 11.7 -14.4 [facility] [place] [facility] HospitalPlatelet Wohju6128-49-14 16:54:00* Test Item Value Reference Range Interpretation Comments Platelet Count (test code = 777-3) 238 140-360 [facility] HospitalNeutrophils (%) (Auto)2018-11-27 16:54:00 * Test Item Value Reference Range Interpretation Comments Neutrophils (%) (Auto) (test code = 19658-2) 70.8 38.7-80.0 [facility] [place] [facility] HospitalLymphocytes (%) (Auto)2018-11-27 16:54:00 * Test Item Value Reference Range Interpretation Comments Lymphocytes (%) (Auto) (test code = 736-9) 22.2 18.0-39.1 [facility] [place] [facility] HospitalMonocytes (%) (Auto)2018-11-27 16:54:00* Test Item Value Reference Range Interpretation Comments Monocytes (%) (Auto) (test code = 5905-5) 5.4 4.4-11.3 [facility] [place] [facility] HospitalEosinophils (%) (Auto)2018-11-27 16:54:00 * Test Item Value Reference Range Interpretation Comments Eosinophils (%) (Auto) (test code = 713-8) 1.0 0.0-6.0 [facility] [place] [facility] HospitalBasophils (%) (Auto)2018-11-27 16:54:00* Test Item Value Reference Range Interpretation Comments Basophils (%) (Auto) (test code = 706-2) 0.3 0.0-1.0 [facility] [place] [facility] HospitalIM GRANULOCYTES %2018-11-27 16:54:00* Test Item Value Reference Range Interpretation Comments IM GRANULOCYTES % (test code = IM GRANULOCYTES %) 0.3 0.0- 1.0 [facility] [place] [facility] HospitalNeutrophils # (Auto)2018-11-27 16:54:00* Test Item Value Reference Range Interpretation Comments Neutrophils # (Auto) (test code = 751-8) 5.5 2.1-6.9 [facility] [place] [facility] HospitalLymphocytes # (Auto)2018-11-27 16:54:00* Test Item Value Reference Range Interpretation Comments Lymphocytes # (Auto) (test code = 59046-4) 1.7 1.0-3.2 [facility] [place] [facility] HospitalMonocytes # (Auto)2018-11-27 16:54:00* Test Item Value Reference Range Interpretation Comments Monocytes # (Auto) (test code = 742-7) 0.4 0.2-0.8 [facility] [place] [facility] HospitalEosinophils # (Auto)2018-11-27 16:54:00* Test Item Value Reference Range Interpretation Comments Eosinophils # (Auto) (test code = 711-2) 0.1 0.0-0.4 [facility] [place] [facility] HospitalBasophils # (Auto)2018-11-27 16:54:00* Test Item Value Reference Range Interpretation Comments Basophils # (Auto) (test code = 704-7) 0.0 0.0-0.1 [facility] [place] [facility] HospitalAbsolute Immature Granulocyte (auto 2018-11-27 16:54:00* Test Item Value Reference Range Interpretation Comments Absolute Immature Granulocyte (auto (isidro t code = Absolute Immature Granulocyte (auto) 0.02 0-0.1 [facility] [place] [facility] HospitalCHEST SINGLE (PORTABLE)2018-11-27 15:27:00 [place] [address] Patient Name: BRISEIDA LEON MR #: [id number] : 1930 Age/Sex: 88/F Req #: [id number] Adm Physician: Ordered by: WALKER RODARTE MD Report #: [id number] Location: ER Room/Bed: Procedure: [id number] DX/ CHEST SINGLE (PORTABLE) Exam Date: 11/27/18 [...] on 11/27/18 1529 Transcribed By: OSVALDO on 152 COPY TO: WALKER RODARTE MD
[2020-06-03] MEDS ORDERED: ONDANSETRON HCL INJ 2MG/ML 2ML 2 MG/ML VIAL IV STA (18:09)
[2020-06-03] MEDS ORDERED: SODIUM CHLORIDE 0.9% 1000ML 1,000 ML IV ONE (18:15)
[2020-06-03] MEDS ORDERED: CEFEPIME 2 GM/NS 0.9% 100 ML 100 ML IV ONE (18:15)
--- NOTE | 2020-06-03 18:15 | Emergency Department Note ---
History of Present Illnes History of Present Illness Chief Complaint: Abdominal Complaints History of Present Illness This is a 89 year old female in from home with complaints of new onset fever, nausea and vomiting after an ERCP to remove a biliary tree stent that was originally placed in October. Patient had her gallbladder removed many years prior. biliary stent was removed today at [facility] [place] pt had the stent placed in october secondary to ascending cholangitis. states has had 4 episodes of vomiting since getting home and had a temp of 99.3 at home. Historian: Patient, Family Member Arrival Mode: Car Onset (how long ago): hour(s) (6) Location: abd Quality: discomfort, nausea and vomiting Radiation: Reports non-radiation Severity: mild Onset quality: sudden Duration (how long): hour(s) (6) Timing of current episode: intermittent Progression: waxing and waning Chronicity: new Context: Reports recent surgery (biliary stent removed today) Relieving factors: none Exacerbating factors: none Associated symptoms: Reports denies other symptoms Treatments prior to arrival: none Past Medical/Family History Physician Review I have reviewed the patient's past medical and family history. Any updates have been documented here. Past Medical History Recent Fever: Yes Clinical Suspicion of Infectio: No New/Unexplained Change in Ment: No Past Medical History: Hypertension, COPD, MD, A-Fib, Hypothyroidism, GERD Other Medical History: MITRAL VALVE PROLAPSE Past Surgical History: Cholecysctectomy, Appendectomy, Hysterectomy, T&A, Knee Replacement Other Surgery: ROTATOR CUFF REPLACEMENT RT LOBECTOMY CARDIAC STENTS X4 Social History Smoking Cessation: Never Smoker Alcohol Use: None Any Illegal Drug Use: No Family History Family history of heart diseas: No Other family history htn Other Last Tetanus: UTD Review of Systems Review of Systems Constitutional: Reports no symptoms EENTM: Reports no symptoms Cardiovascular: Reports no symptoms Respiratory: Reports no symptoms Gastrointestinal: Reports as per HPI Genitourinary: Reports no symptoms Musculoskeletal: Reports no symptoms Integumentary: Reports no symptoms Neurological: Reports no symptoms Psychological: Reports no symptoms Endocrine: Reports no symptoms Hematological/Lymphatic: Reports no symptoms Physical Exam Related Data Allergies: Coded Allergies: Penicillins (Verified Allergy, Severe, "TONGUE SWELLING", 11/27/18) Sulfa (Sulfonamide Antibiotics) (Verified Allergy, Unknown, 11/27/18) Triage Vital Signs Vital Signs Date Time Temp Pulse Resp B/P (MAP) Pulse Ox O2 Delivery O2 Flow Rate FiO2 06/03/20 17:49 98.8 88 16 151/70 98 Room Air Vital signs reviewed: Yes Physical Exam CONSTITUTIONAL Constitutional: Present well-developed, Present well-nourished; Absent distressed HENT HENT: Present normocephalic, Present atraumatic, Present oropharynx clear/moist, Present nose normal HENT L/R: Present left ext ear normal, Present right ext ear normal EYES Eyes: Reports PERRL, Reports conjunctivae normal NECK Neck: Present ROM normal PULMONARY Pulmonary: Present effort normal, Present breath sounds normal CARDIOVASCULAR Cardiovascular: Present irregular rhythm, Present heart sounds normal, Present capillary refill normal, Present normal rate GASTROINTESTINAL Abdominal: Present soft, Present bowel sounds normal, Present tender (mild epigastric, periumbilical) GENITOURINARY Genitourinary: Present exam deferred SKIN Skin: Present warm, Present dry MUSCULOSKELETAL Musculoskeletal: Present ROM normal NEUROLOGICAL Neurological: Present alert, Present oriented x 3, Present no gross motor or sensory deficits PSYCHOLOGICAL Psychological: Present mood/affect normal, Present judgement normal Results Laboratory Laboratory Laboratory Tests Test 06/03/20 20:19 06/03/20 20:04 06/03/20 18:17 Lactic Acid Level 1.5 mmol/L (0.5-2.0) 2.8 mmol/L (0.5-2.0) Urine Color Yellow (YELLOW) Urine Clarity Clear (CLEAR) Urine pH 7 (5 - 7) Urine Specific [place] 1.020 (1.010-1.025) Urine Protein Negative (NEGATIVE) Urine Glucose (UA) Negative (NEGATIVE) Urine Ketones Negative (NEGATIVE) Urine Blood Trace (NEGATIVE) Urine Nitrite Positive (NEGATIVE) Urine Bilirubin Negative (NEGATIVE) Urine Urobilinogen 0.2 mg/dL (0.2 - 1) Urine Leukocyte Esterase Negative (NEGATIVE) Urine RBC 0-5 /HPF (0-5) Urine WBC 0-5 /HPF (0-5) Urine Epithelial Cells Rare /LPF (NONE) Urine Bacteria Few /HPF (NONE) White Blood Count 9.84 x10e3/uL (4.8-10.8) Red Blood Count 4.73 x10e6/uL (3.6-5.1) Hemoglobin 11.8 g/dL (12.0-16.0) Hematocrit 37.6 % (34.2-44.1) Mean Corpuscular Volume 79.5 fL (81-99) Mean Corpuscular Hemoglobin 24.9 pg (28-32) Mean Corpuscular Hemoglobin Concent 31.4 g/dL (31-35) Red Cell Distribution Width 14.7 % (11.7-14.4) Platelet Count 277 x10e3/uL (140-360) Neutrophils (%) (Auto) 82.4 % (38.7-80.0) Lymphocytes (%) (Auto) 11.6 % (18.0-39.1) Monocytes (%) (Auto) 5.1 % (4.4-11.3) Eosinophils (%) (Auto) 0.3 % (0.0-6.0) Basophils (%) (Auto) 0.3 % (0.0-1.0) Neutrophils # (Auto) 8.1 (2.1-6.9) Lymphocytes # (Auto) 1.1 (1.0-3.2) Monocytes # (Auto) 0.5 (0.2-0.8) Eosinophils # (Auto) 0.0 (0.0-0.4) Basophils # (Auto) 0.0 (0.0-0.1) Absolute Immature Granulocyte (auto 0.03 x10e3/uL (0-0.1) Sodium Level 143 mmol/L (136-145) Potassium Level 3.9 mmol/L (3.5-5.1) Chloride Level 103 mmol/L (98-107) Carbon Dioxide Level 26 mmol/L (22-29) Anion Gap 17.9 mmol/L (8-16) Blood Urea Nitrogen 16 mg/dL (7-26) Creatinine 0.83 mg/dL (0.57-1.11) Estimat Glomerular Filtration Rate > 60 ML/MIN (60-) BUN/Creatinine Ratio 19 (6-25) Glucose Level 167 mg/dL (74-118) Calcium Level 9.8 mg/dL (8.4-10.2) Total Bilirubin 0.6 mg/dL (0.2-1.2) Aspartate Amino Transf (AST/SGOT) 21 IU/L (5-34) Alanine Aminotransferase (ALT/SGPT) 29 IU/L (0-55) Alkaline Phosphatase 116 IU/L (40-150) Creatine Kinase 15 IU/L (29-168) Creatine Kinase MB 0.70 ng/mL (0-5.0) Troponin I < 0.001 ng/mL (0-0.300) Total Protein 7.4 g/dL (6.5-8.1) Albumin 3.7 g/dL (3.5-5.0) Globulin 3.7 g/dL (2.3-3.5) Albumin/Globulin Ratio 1.0 (0.8-2.0) Amylase Level 78 U/L (25-125) Lipase 10 U/L (8-78) Lab results reviewed: Yes Imaging Imaging results reviewed: Yes Impressions Procedure: [id number] CT/CT ABDOMEN/PELVIS W Exam Date: 06/03/20 Exam Time: 1916 REPORT STATUS: Signed EXAM: CT Abdomen and Pelvis WITH contrast INDICATION: ^abd pain, had biliary stent removed today ^[id number] ^1916 ^Y COMPARISON: CT of the abdomen and pelvis on 11/04/2019. TECHNIQUE: Abdomen and pelvis were scanned utilizing a multidetector helical scanner from the lung base to the pubic symphysis after administration of IV contrast. Coronal and sagittal reformations were obtained. Routine protocol was performed. Scan was performed when during portal venous phase. IV CONTRAST: 100 mL of Isovue 370 ORAL CONTRAST: None COMPLICATIONS: None RADIATION DOSE: Total DLP: 419 mGy*cm Estimated effective dose: (DLP x 0.015 x size factor) mSv CTDIvol has been reviewed. It is below the limits set by the Radiation Protocol Committee (RPC). Dose modulation, iterative reconstruction, and/or weight based adjustment of the mA/kV was utilized to reduce the radiation dose to as low as reasonably achievable. FINDINGS: LINES and TUBES: None. LOWER THORAX: Left basilar atelectasis. HEPATOBILIARY: No focal hepatic lesions. There is intrahepatic and neck to hepatobiliary ductal dilatation and pneumobilia. GALLBLADDER: Status post cholecystectomy. SPLEEN: No splenomegaly. PANCREAS: No focal masses or ductal dilatation. ADRENALS: No adrenal nodules KIDNEYS/URETERS: There are bilateral extrarenal pelvises. Kidneys enhance symmetrically. No hydronephrosis. Left renal cysts are unchanged. No stones. GI TRACT: No abnormal distention, wall thickening, or evidence of bowel obstruction. Appendix is normal. PELVIC ORGANS/BLADDER: Evaluation of pelvic organs is limited by streak artifact from right hip implant. No gross abnormality identified. LYMPH NODES: No lymphadenopathy. VESSELS: Scattered mild arterial vascular calcifications. PERITONEUM / RETROPERITONEUM: No free air or fluid. BONES: There are degenerative changes in the spine. Chronic L1 compression fracture. Right hip hemiarthroplasty. SOFT TISSUES: Spinal cords stability device in the right gluteal soft tissues. Soft tissues otherwise normal. IMPRESSION: 1. Intrahepatic and extrahepatic biliary ductal dilatation as before with new pneumobilia, likely from recent biliary stent removal. 2. No other acute abnormality identified. Signed by: Daly Jimenez MD on 06/03/2020 8:15 PM Dictated By: DALY JIMENEZ MD 14 Transcribed By: OSVALDO on 06/03/202014 COPY TO: MONTSERRAT MORLEY MD~ Procedures 12 Lead ECG Interpretation ECG Interpretation : ECG: ECG 1 Floor Attendant: Interpreted by ED physician Date: Jun 03, 2020 Time: 18:49 Rhythm: atrial fibrillation Rate: normal BPM: 90 ST segments normal: No (non psecific changes) T waves normal: No T waves flattening: V5, V6 Q waves: V1, V2 Clinical Impression: abnormal ECG Assessment & Plan Medical Decision Making MDM pt with abd discomfort and vomiting since having biliary stent removed today cbc, cmp, amylase, lipase, ua, ct abd/pelvis, ekg, cardiac enzymes ordered to eval for pancreatitis, leukocytosis, elevated lft's, myocardial infarction, sbo, colitis, bowel perforation, electrolyte abnormality, uti ns 1 liter iv bolus ordered cefepime 2 grams iv ordered zofran 4 mg iv ordered Reassessment Reassessment time: 21:10 Reassessment TOLERATING PO Assessment & Plan Final Impression: (1) Nausea & vomiting (2) Dehydration Depart Disposition: HOME, SELF-CARE Last Vital Signs Date Time Temp Pulse Resp B/P (MAP) Pulse Ox O2 Delivery O2 Flow Rate FiO2 06/03/20 17:49 98.8 88 16 151/70 98 Room Air Home Meds Reported Medications Solifenacin Succinate (VESICARE) 5 Mg Tablet, 5 MG PO HS, #30 TAB 5/5/20 Apixaban (Eliquis) 5 Mg Tablet, 2.5 MG PO Q12H 5/5/20 Pantoprazole Sodium (PROTONIX) 40 Mg Suspdr.pkt, 40 MG PO DAILY, #30 TAB 11/04/19 Nifedipine (NIFEDIPINE ER) 30 Mg Tab.er.24, 60 MG PO DAILY 11/27/18 Losartan Potassium (LOSARTAN POTASSIUM) 25 Mg Tablet, 25 MG PO DAILY 11/27/18 Furosemide (LASIX) 20 Mg Tablet, 20 MG PO DAILY, #30 TAB 11/27/18 Levothyroxine Sodium (LEVOTHYROXINE SODIUM) 112 Mcg Tablet, 137 MCG PO DAILY, #30 TAB 11/27/18 Sotalol Hcl (SOTALOL) 80 Mg Tablet, 120 MG PO BID, #60 TAB 11/27/18 Medications in the ED Sodium Chloride 1,000 ml @ 999 mls/hr Q1H1M ONCE IV ; Start 06/03/20 at 18:15; Stop 06/03/20 at 19:15 Cefepime HCl 100 ml @ 200 mls/hr ONCE ONCE IV ; Start 06/03/20 at 18:15; Stop 06/03/20 at 18:44; Status UNMONTSERRAT ALLISON MD Jun 03, 2020 18:15
[2020-06-03 18:31] LABS: BASOPHILS % 0.3 % (0.0-1.0); EOSINOPHILS % 0.3 % (0.0-6.0); HEMATOCRIT 37.6 % (34.2-44.1); HEMOGLOBIN 11.8 g/dL (12.0-16.0); LYMPHOCYTES # (AUTO) 1.1 (1.0-3.2); LYMPHOCYTES % 11.6 % (18.0-39.1); MEAN CORPUSCULAR HEMOGLOBIN 24.9 pg (28-32); MEAN CORPUSCULAR HGB CONC 31.4 g/dL (31-35); MEAN CORPUSCULAR VOLUME 79.5 fL (81-99); MONOCYTES # (AUTO) 0.5 (0.2-0.8); MONOCYTES % 5.1 % (4.4-11.3); NEUTROPHILS # (AUTO) 8.1 (2.1-6.9); NEUTROPHILS % 82.4 % (38.7-80.0); PLATELET COUNT 277 x10e3/uL (140-360); RED BLOOD COUNT 4.73 x10e6/uL (3.6-5.1); RED CELL DISTRIBUTION WIDTH 14.7 % (11.7-14.4)
[2020-06-03 18:49] LABS: ALANINE AMINOTRANSFERASE 29 IU/L (0-55); ALBUMIN 3.7 g/dL (3.5-5.0); ALKALINE PHOSPHATASE 116 IU/L (40-150); ANION GAP 17.9 mmol/L (8-16); BLOOD UREA NITROGEN 16 mg/dL (7-26); BUN/CREATININE RATIO 19 (6-25); CALCIUM 9.8 mg/dL (8.4-10.2); CARBON DIOXIDE 26 mmol/L (22-29); CHLORIDE 103 mmol/L (98-107); CREATINE KINASE 15 IU/L (29-168); CREATININE, SERUM 0.83 mg/dL (0.57-1.11); EST GLOMERULAR FILTRATION RATE > 60 ML/MIN (60-); GLUCOSE 167 mg/dL (74-118); POTASSIUM 3.9 mmol/L (3.5-5.1); SODIUM 143 mmol/L (136-145)
[2020-06-03 19:08] LABS: AMYLASE 78 U/L (25-125); LIPASE 10 U/L (8-78)
[2020-06-03] MEDS ORDERED: SODIUM CHLORIDE 0.9% 50ML 50 ML ONE (20:12)
[2020-06-03] MEDS ORDERED: IOPAMIDOL 370 MG/ML 200 ML INFUS..BTL INJ ONE (20:12)
--- NOTE | 2020-06-03 20:18 | Diagnostic Imaging Report ---
EXAM: CT Abdomen and Pelvis WITH contrast INDICATION: ^abd pain, had biliary stent removed today ^[id number] ^7 ^Y COMPARISON: CT of the abdomen and pelvis on 11/04/2019. TECHNIQUE: Abdomen and pelvis were scanned utilizing a multidetector helical scanner from the lung base to the pubic symphysis after administration of IV contrast. Coronal and sagittal reformations were obtained. Routine protocol was performed. Scan was performed when during portal venous phase. IV CONTRAST: 100 mL of Isovue 370 ORAL CONTRAST: None COMPLICATIONS: None RADIATION DOSE: Total DLP: 419 mGy*cm Estimated effective dose: (DLP x 0.015 x size factor) mSv CTDIvol has been reviewed. It is below the limits set by the Radiation Protocol Committee (RPC). Dose modulation, iterative reconstruction, and/or weight based adjustment of the mA/kV was utilized to reduce the radiation dose to as low as reasonably achievable. FINDINGS: LINES and TUBES: None. LOWER THORAX: Left basilar atelectasis. HEPATOBILIARY: No focal hepatic lesions. There is intrahepatic and neck to hepatobiliary ductal dilatation and pneumobilia. GALLBLADDER: Status post cholecystectomy. SPLEEN: No splenomegaly. PANCREAS: No focal masses or ductal dilatation. ADRENALS: No adrenal nodules KIDNEYS/URETERS: There are bilateral extrarenal pelvises. Kidneys enhance symmetrically. No hydronephrosis. Left renal cysts are unchanged. No stones. GI TRACT: No abnormal distention, wall thickening, or evidence of bowel obstruction. Appendix is normal. PELVIC ORGANS/BLADDER: Evaluation of pelvic organs is limited by streak artifact from right hip implant. No gross abnormality identified. LYMPH NODES: No lymphadenopathy. VESSELS: Scattered mild arterial vascular calcifications. PERITONEUM / RETROPERITONEUM: No free air or fluid. BONES: There are degenerative changes in the spine. Chronic L1 compression fracture. Right hip hemiarthroplasty. SOFT TISSUES: Spinal cords stability device in the right gluteal soft tissues. Soft tissues otherwise normal. IMPRESSION: 1. Intrahepatic and extrahepatic biliary ductal dilatation as before with new pneumobilia, likely from recent biliary stent removal. 2. No other acute abnormality identified. Signed by: Daly Edwards MD on 06/03/2020 8:15 PM
[2020-06-03 20:24] LABS: COLOR,URINE YELLOW (YELLOW)
[2020-06-03 20:25] LABS: CLARITY,URINE CLEAR (CLEAR); LEUKOCYTE ESTERASE ,URINE NEGATIVE (NEGATIVE); NITRITE,URINE POSITIVE (NEGATIVE)
[2020-06-03 20:26] LABS: BILIRUBIN,URINE NEGATIVE (NEGATIVE); KETONES,URINE NEGATIVE (NEGATIVE); PROTEIN,URINE DIPSTICK NEGATIVE (NEGATIVE); URINE UROBILINOGEN 0.2 mg/dL (0.2 - 1)
[2020-06-03 20:32] LABS: BACTERIA,URINE FEW /HPF; EPITHELIAL CELLS,URINE RARE /LPF; RBC,URINE 0-5 /HPF (0-5); WBC,URINE (MAN) 0-5 /HPF (0-5)
[2020-06-03 21:50] VITALS: BP 132/84
== END 2020-06-03 21:51 | disposition home or self-care (01) ==
LOC: ER 18:00
DX: R11.2 Nausea with vomiting, unspecified (principal); E86.0 Dehydration; R10.84 Generalized abdominal pain; I10 Essential (primary) hypertension; J44.9 Chronic obstructive pulmonary disease, unspecified; I48.91 Unspecified atrial fibrillation; K21.9 Gastro-esophageal reflux disease without esophagitis; E03.9 Hypothyroidism, unspecified; Z95.5 Presence of coronary angioplasty implant and graft; I34.1 Nonrheumatic mitral (valve) prolapse
CPT/HCPCS: 36415; 74177; 80053; 81001; 82150; 82550; 82553; 83605; 83690; 84484; 85025; 87040; 93005; 99284; J2405; J7030; Q9967